=== PATIENT | male | born 1940 | race Caucasian/White ===

== ENCOUNTER 2018-04-29 08:45 | Inpatient (IN) | payer MEDICARE, BC ==
[~2018-04-29] VITALS: Ht 177.8 cm; Wt 82.6 kg
[~2018-04-29 08:45] MED LIST: ALLO100T PO; AMLO5TAB7 PO; ASPI-482 PO; COLC0.6T34 PO; HYDR12.53 PO; HYDR500C16 PO
[2018-04-29 09:32] LABS: BASO # 0.2 x10^3/uL (0.0-0.2); BASO % 2 % (0-3); EOS # 0.2 x10^3/uL (0.0-0.7); EOS % 1 % (0-3); LYMPH # 1.9 x10^3/uL (1.0-4.8); LYMPH % 14 % (24-48); MEAN CORPUSCULAR HEMOGLOBIN 32 pg (25-35); MEAN CORPUSCULAR HGB CONC 35 g/dL (31-37); MEAN CORPUSCULAR VOLUME 91 fL (79-100); MONO # 0.5 x10^3/uL (0.0-1.1); MONO % 4 % (0-9); NEUT % 79 % (31-73); PLATELET COUNT 220 x10^3/uL (140-400); RED BLOOD COUNT 2.52 x10^6/uL (4.30-5.70); RED CELL DISTRIBUTION WIDTH 18.9 % (11.5-14.5); WHITE BLOOD COUNT 13.9 x10^3/uL (4.0-11.0)
[2018-04-29 09:40] LABS: CALCIUM 8.7 mg/dL (8.5-10.1); CREATININE 2.2 mg/dL (0.7-1.3); POTASSIUM 4.3 mmol/L (3.5-5.1)
[2018-04-29 09:53] LABS: C-REACTIVE PROTEIN 40.5 mg/L (0-3.3); DIRECT BILIRUBIN 0.2 mg/dL (0.0-0.2); TOTAL BILIRUBIN 0.7 mg/dL (0.2-1.0); TOTAL PROTEIN 7.7 g/dL (6.4-8.2); URIC ACID 7.7 mg/dL (3.5-7.2)
--- NOTE | 2018-04-29 09:54 | RAD ---
Left foot, 3 views, 04/29/2018: HISTORY: Pain and swelling There is moderate degenerative change at the first MTP joint. There is mild degenerative changes at scattered interphalangeal joints and at the mid foot level. No acute fracture or destructive bony lesion is seen. Moderate diffuse soft tissue swelling is present IMPRESSION: 1. Mild to moderate scattered degenerative changes. 2. Diffuse soft tissue swelling. 3. No acute bony abnormality is detected. Electronically signed by: Henrry Jameson MD (04/29/2018 9:51 AM) [facility]
[2018-04-29] MEDS ORDERED: ACETAMINOPHEN 325 MG TABLET. PO PRN (11:45)
[2018-04-29] MEDS ORDERED: ONDANSETRON PF 4 MG/2 ML VIAL. IV PRN (11:45)
[2018-04-29] MEDS ORDERED: MORPHINE SULFATE 4 MG/ML VIAL. IV PRN (11:45)
--- NOTE | 2018-04-29 11:53 | PHYS DOC ---
Past Medical History Past Medical History: Hypertension Additional Past Medical Histor: leukemia-myleofibrosis, gout Additional Past Surgical Histo: skin cancer removed Alcohol Use: None Drug Use: None Adult General Chief Complaint Chief Complaint: FOOT INJURY PAIN HPI HPI Patient is a 77 year old male who presents with left foot pain/swelling. The patient endorses bilateral swelling and pain and redness of the feet that started about 7 days ago. He states the pain in the right foot improved as well as swelling. The left foot however continued to worsen. He has redness and edema in that extremity. He did not sustain any recent illness. He has not had a fever but has had some chills. 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 He is currently taking some immunomodulating type therapy. The patient also has a known history of gout. He was recently placed on allopurinol for this. Review of Systems Review of Systems Constitutional: Denies fever or chills Eyes: Denies change in visual acuity HENT: Denies nasal congestion Respiratory: Denies cough or shortness of breath Cardiovascular: No additional information not addressed in HPI GI: Denies abdominal pain : Denies dysuria Musculoskeletal: Denies back pain Integument: Denies rash or skin lesions Neurologic: Denies headache Endocrine: Denies polyuria All other systems were reviewed and found to be within normal limits, except as documented in this note. Current Medications Current Medications Current Medications Medications (Trade) Dose Ordered Sig/Duong Start Time Stop Time Status Last Admin Dose Admin Acetaminophen (Tylenol) 650 mg PRN Q4HRS PRN 04/29/18 11:45 04/30/18 11:44 Ceftriaxone Sodium 1 gm/ Dextrose 50 ml @ 100 mls/hr Q24H 04/29/18 11:45 UNV Levofloxacin/ Dextrose 150 ml @ 100 mls/hr ONCE ONCE 04/29/18 11:45 04/29/18 13:14 Morphine Sulfate (Morphine Sulfate) 4 mg PRN Q2HR PRN 04/29/18 11:45 04/30/18 11:44 Ondansetron HCl (Zofran) 4 mg PRN Q8HRS PRN 04/29/18 11:45 04/30/18 11:44 Sodium Chloride 1,000 ml @ 120 mls/hr Q8H20M 04/29/18 11:37 04/30/18 11:36 Vancomycin HCl (Vanco Per Pharmacy) 1 each PRN DAILY PRN 04/29/18 11:45 UNV Vancomycin HCl 2 gm/Sodium Chloride 500 ml @ 250 mls/hr 1X ONCE 04/29/18 12:30 04/29/18 14:29 Allergies Allergies Allergies Coded Allergies Type Severity Reaction Last Updated Verified Penicillins Allergy Intermediate 05/25/16 Yes Physical Exam Physical Exam Constitutional: Well developed, well nourished, no acute distress, non-toxic appearance HENT: Normocephalic, atraumatic, bilateral external ears normal Eyes: PERRLA, EOMI Neck: Normal range of motion Cardiovascular:Heart rate regular rhythm, no murmur Lungs & Thorax: Bilateral breath sounds clear to auscultation Abdomen: Bowel sounds normal, soft, no tenderness Skin: Warm, dry, no erythema Extremities: edema and erythema in the left foot. erythema extends proximally to the mid-foot. Edema to the ankle. 2+ dp pulses. Sensation to light touch intact over all dermatomes. Compartments of the calf are soft and NTTP. Neurologic: Alert and oriented X 3, normal motor function Psychologic: Affect normal Current Patient Data Vital Signs Vital Signs Date Time Temp Pulse Resp B/P (MAP) Pulse Ox O2 Delivery O2 Flow Rate FiO2 04/29/18 11:15 80 18 145/75 (98) 100 Room Air 04/29/18 08:53 98.2 98.2 Lab Values Laboratory Tests Test 04/29/18 09:18 White Blood Count 13.9 x10^3/uL (4.0-11.0) H Red Blood Count 2.52 x10^6/uL (4.30-5.70) L Hemoglobin 8.0 g/dL (13.0-17.5) L Hematocrit 23.0 % (39.0-53.0) L Mean Corpuscular Volume 91 fL (79-100) Mean Corpuscular Hemoglobin 32 pg (25-35) Mean Corpuscular Hemoglobin Concent 35 g/dL (31-37) Red Cell Distribution Width 18.9 % (11.5-14.5) H Platelet Count 220 x10^3/uL (140-400) Neutrophils (%) (Auto) 79 % (31-73) H Lymphocytes (%) (Auto) 14 % (24-48) L Monocytes (%) (Auto) 4 % (0-9) Eosinophils (%) (Auto) 1 % (0-3) Basophils (%) (Auto) 2 % (0-3) Neutrophils # (Auto) 11.0 x10^3uL (1.8-7.7) H Lymphocytes # (Auto) 1.9 x10^3/uL (1.0-4.8) Monocytes # (Auto) 0.5 x10^3/uL (0.0-1.1) Eosinophils # (Auto) 0.2 x10^3/uL (0.0-0.7) Basophils # (Auto) 0.2 x10^3/uL (0.0-0.2) Platelet Estimate Pending Erythrocyte Sedimentation Rate 81 (0-15) H Sodium Level 137 mmol/L (136-145) Potassium Level 4.3 mmol/L (3.5-5.1) Chloride Level 102 mmol/L (98-107) Carbon Dioxide Level 26 mmol/L (21-32) Anion Gap 9 (6-14) Blood Urea Nitrogen 31 mg/dL (8-26) H Creatinine 2.2 mg/dL (0.7-1.3) H Estimated GFR (Cockcroft-Gault) 29.0 Glucose Level 131 mg/dL (70-99) H Lactic Acid Level 1.0 mmol/L (0.4-2.0) Uric Acid 7.7 mg/dL (3.5-7.2) H Calcium Level 8.7 mg/dL (8.5-10.1) Total Bilirubin 0.7 mg/dL (0.2-1.0) Direct Bilirubin 0.2 mg/dL (0.0-0.2) Aspartate Amino Transferase (AST) 23 U/L (15-37) Alanine Aminotransferase (ALT) 21 U/L (16-63) Alkaline Phosphatase 80 U/L (46-116) C-Reactive Protein, Quantitative 40.5 mg/L (0-3.3) H Total Protein 7.7 g/dL (6.4-8.2) Albumin 4.0 g/dL (3.4-5.0) Laboratory Tests 04/29/18 09:18 Laboratory Tests 04/29/18 09:18 EKG EKG [] Radiology/Procedures Radiology/Procedures HISTORY: Pain and swelling There is moderate degenerative change at the first MTP joint. There is mild degenerative changes at scattered interphalangeal joints and at the mid foot level. No acute fracture or destructive bony lesion is seen. Moderate diffuse soft tissue swelling is present IMPRESSION: 1. Mild to moderate scattered degenerative changes. 2. Diffuse soft tissue swelling. 3. No acute bony abnormality is detected. Course & Med Decision Making Course & Med Decision Making Pertinent Labs and Imaging studies reviewed. (See chart for details) Patient was evaluated in the emergency department for possible infection versus gout in the left foot. His history of bilateral involvement with improvement on the right seems more suspicious for gout. The patient was recently started on allopurinol. In the ER, his white blood cell count is mildly elevated. His CRP was over 40. His creatinine was 2.2. The patient does follow with Dr. PATEL for myelofibrosis. He is currently receiving treatment. This makes interpretation of his labs a bit more difficult. His lactate was not elevated. He did not have a fever in the ER. The creatinine of 2.2 is elevated compared to the most recent available although the patient does have chronic kidney disease. The decision is made to admit the patient and assume infection until proven otherwise. He is placed on vancomycin and Levaquin at renal dosing. Patient does have an allergy to penicillin. I discussed this patient with his primary care physician, Dr. Saldaña, who was agreeable to admit. Consults are placed for nephrology as well as for the patient's primary oncologist to consult. Prior to admission all results are reviewed and all of the patient's questions are answered. He is agreeable to the plan of care. Dragon Disclaimer Dragon Disclaimer This electronic medical record was generated, in whole or in part, using a voice recognition dictation system. Departure Departure Referrals: FROY SALDAÑA MD (PCP) CLARK DENNISON DO Apr 29, 2018 11:53
[2018-04-29] MEDS ORDERED: VANCOMYCIN 1.75 GM in IV NORMAL SALINE 500ML BAG 500 ML IV ONE (12:00)
[2018-04-29] MEDS ORDERED: VANCOMYCIN 2 GM in IV NORMAL SALINE 500ML BAG 500 ML IV ONE (12:30)
[2018-04-29] MEDS ORDERED: RUXO10TA PO (12:46)
[2018-04-29 13:00] LABS: % BANDS 23 % (0-9); % LYMPHS 15 % (24-48); % METAS 7 % (0-0); % MONOS 1 % (0-10); % SEGS 54 % (35-66); NUCLEATED RBC 5
[2018-04-29 13:01] LABS: ANISOCYTOSIS SLIGHT; PLT ESTIMATE ADEQUATE (ADEQUATE); POLYCHROMASIA PRESENT
[2018-04-29] MEDS: IV NORMAL SALINE 1000ML BAG 1,000 ML IV SCH ×2 (13:10→19:57)
[2018-04-29 13:11] VITALS: BP 145/73
[2018-04-29 15:00] VITALS: BP 119/81
[2018-04-29] MEDS: VANCOMYCIN PER PHARMACY MC PRN (15:34)
[2018-04-29 19:00] VITALS: BP 131/60
[2018-04-29 23:00] VITALS: BP 124/68
--- NOTE | 2018-04-30 00:57 | CONS ---
DATE OF CONSULTATION: 04/29/2018 REQUESTING PHYSICIAN: Dr. Obi Miramontes. REASON FOR CONSULTATION: Myelofibrosis now admitted with cellulitis. 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 He was treated with hydroxyurea and he tolerated it very well. However, he progressed to myelofibrosis diagnosed by bone marrow biopsy on 02/01/2016. He was started on Jakafi on 04/05/2016. He is currently on 10 mg twice a day. [facility] 04/29/2018 with worsening redness and pain in the left foot. He does have history of gout. He denies any fever. No nose bleeds or gum bleeding. No hematemesis, melena or hematochezia. PAST MEDICAL HISTORY: Includes hypertension, history of gout, skin cancer. FAMILY HISTORY: Positive for colon cancer. SOCIAL HISTORY: No smoking or alcohol abuse. REVIEW OF SYSTEMS: A 12-point review of system was performed. Pertinent positives are mentioned in the history of present illness. Rest of the system review is negative. PHYSICAL EXAMINATION: GENERAL APPEARANCE: The patient is a 77-year-old gentleman who is in no acute cardiorespiratory distress. VITAL SIGNS: Blood pressure 145/73, temperature 98.5. HEENT: Atraumatic, normocephalic. Eyes: No icterus. NECK: Supple. CHEST: Bilaterally symmetrical. HEART: S1, S2 normal. ABDOMEN: Soft, nontender. CENTRAL NERVOUS SYSTEM: No focal deficits. LYMPHATICS: No lymphadenopathy. SKIN: He has erythema in the left foot. MUSCULOSKELETAL: He has evidence of swelling in the left great toe region. LABORATORY DATA: WBC 13.9, hemoglobin 8, and platelet count 220. ESR of 81, bands 23%. Creatinine 2.2. IMPRESSION AND PLAN: 1. Myelofibrosis. He was previously diagnosed with polycythemia vera, JAK2 mutation positive. He was initially treated with hydroxyurea and then upon progression to myelofibrosis diagnosed on 02/01/2016, he was started on Jakafi on 04/05/2016. I have recommended that he continue Jakafi 10 mg b.i.d. He has a good response to treatment. 2. 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 Hemoglobin is relatively stable. I will continue to monitor. 3. Cellulitis of the left lower extremity. I will consult Infectious Diseases. 4. Renal failure. Consult Nephrology. 5. Gout and swelling of the left foot great toe. I will consult Rheumatology. PUMA PATEL MD DR: FROY/barry JOB#: [id number] / [id number]
[2018-04-30] MEDS: IV NORMAL SALINE 1000ML BAG 1,000 ML IV SCH ×2 (01:50→04:17)
[2018-04-30 03:00] VITALS: BP 120/69
[2018-04-30 05:09] LABS: BASO # 0.1 x10^3/uL (0.0-0.2); BASO % 1 % (0-3); EOS # 0.1 x10^3/uL (0.0-0.7); EOS % 1 % (0-3); HEMOGLOBIN 7.2 g/dL (13.0-17.5); LYMPH % 10 % (24-48); MEAN CORPUSCULAR HEMOGLOBIN 33 pg (25-35); MEAN CORPUSCULAR HGB CONC 36 g/dL (31-37); MEAN CORPUSCULAR VOLUME 91 fL (79-100); MONO # 0.4 x10^3/uL (0.0-1.1); MONO % 4 % (0-9); NEUT # 8.1 x10^3uL (1.8-7.7); NEUT % 84 % (31-73); PLATELET COUNT 178 x10^3/uL (140-400); RED BLOOD COUNT 2.23 x10^6/uL (4.30-5.70); RED CELL DISTRIBUTION WIDTH 18.9 % (11.5-14.5); WHITE BLOOD COUNT 9.6 x10^3/uL (4.0-11.0)
[2018-04-30 05:18] LABS: HEMATOCRIT 20.3 % (39.0-53.0)
[2018-04-30 05:52] LABS: ALBUMIN 3.4 g/dL (3.4-5.0); CALCIUM 8.4 mg/dL (8.5-10.1); CREATININE 2.1 mg/dL (0.7-1.3); GFR 30.6; POTASSIUM 4.4 mmol/L (3.5-5.1); TOTAL BILIRUBIN 0.7 mg/dL (0.2-1.0); TOTAL PROTEIN 6.9 g/dL (6.4-8.2)
[2018-04-30 07:20] VITALS: BP 131/72
--- NOTE | 2018-04-30 08:19 | PDOC1 ---
H & P H&P HPI: Mr. Her a 77-year-old male with past medical history of chronic kidney disease stage III, myelofibrosis, splenomegaly, gout, who presented to the ER yesterday for findings of possible cellulitis vs gout of left foot. He notes left foot pain and significant swelling. Per the patient, bilateral swelling, pain and redness of the feet started about 7 days ago and the right foot has subsequently improved, though the left foot has continued to worsen. Patient is currently on Jakafi for treatment of myelofibrosis per Dr. Lal. Of note, he was seen in clinic on 03/31/18 for acute gout of R great toe which was injected and quickly improved. He has been on allopurinol since ~2016 with no recent dose change. ROS: Constitutional: Denies fever, fatigue, chills HEENT: Denies sore throat Cardio: Denies chest pain Pulmonary: Denies shortness of breath, cough, wheezing GI: Denies nausea, vomiting, diarrhea, constipation Skin: Erythema, swelling of Left foot Neuro: Denies weakness, paresthesias ED Course: Labs are significant for white count of 13.9, hemoglobin of 8, creatinine of 2.2, uric acid 7.7, CRP 40.5, pro calcitonin 0.18, ESR 81. Repeat labs in a.m. showed worsening of her normocytic anemia with hemoglobin of 7.2. PMH: As above Family Hx: Brother had colon cancer, sister had cervical cancer. Social Hx: Nonsmoker, nondrinker, no illicit drug use Surg Hx: Myeloma resection on the left face in 2015 Meds: Reviewed and reconciled Allergies: Reviewed PE: Alert, oriented, no acute distress, nontoxic EOMI, sclera non-icteric Neck supple RRR, no murmur CTAB, no wheezes, crackles or rhonchi Soft, NT, ND R foot appears normal, L foot with marked swelling of entire foot, erythema over the 1st MTP and across dorsal foot, mild to moderate tenderness to palpation, no exquisite tenderness with 1st MTP joint movement Normal pulses in b/l LE Calm, cooperative, mood/affect within normal limits Left foot, 3 views, 04/29/2018: HISTORY: Pain and swelling There is moderate degenerative change at the first MTP joint. There is mild degenerative changes at scattered interphalangeal joints and at the mid foot level. No acute fracture or destructive bony lesion is seen. Moderate diffuse soft tissue swelling is present IMPRESSION: 1. Mild to moderate scattered degenerative changes. 2. Diffuse soft tissue swelling. 3. No acute bony abnormality is detected. Assessment/Plan: Left foot redness/swelling likely cellulitis vs gout (seems less likely given exam) Stage III chronic kidney disease with mild JERMAINE Myelofibrosis HTN Chronic normocytic anemia Heme/Onc, ID following Continue abx per ID Repeat labs in AM Dc on PO abx once showing improvement DOMI BALDERAS MD Apr 30, 2018 08:19
--- NOTE | 2018-04-30 08:54 | PDOC ---
Infectious Disease Note Vital Sign Vital Signs Vital Signs Date Time Temp Pulse Resp B/P (MAP) Pulse Ox O2 Delivery O2 Flow Rate FiO2 04/30/18 07:20 98.2 80 20 131/72 (91) 98 Room Air 98.2 Labs Lab Laboratory Tests Test 04/29/18 09:18 04/30/18 04:43 White Blood Count 13.9 x10^3/uL (4.0-11.0) 9.6 x10^3/uL (4.0-11.0) Red Blood Count 2.52 x10^6/uL (4.30-5.70) 2.23 x10^6/uL (4.30-5.70) Hemoglobin 8.0 g/dL (13.0-17.5) 7.2 g/dL (13.0-17.5) Hematocrit 23.0 % (39.0-53.0) 20.3 % (39.0-53.0) Mean Corpuscular Volume 91 fL (79-100) 91 fL (79-100) Mean Corpuscular Hemoglobin 32 pg (25-35) 33 pg (25-35) Mean Corpuscular Hemoglobin Concent 35 g/dL (31-37) 36 g/dL (31-37) Red Cell Distribution Width 18.9 % (11.5-14.5) 18.9 % (11.5-14.5) Platelet Count 220 x10^3/uL (140-400) 178 x10^3/uL (140-400) Neutrophils (%) (Auto) 79 % (31-73) 84 % (31-73) Lymphocytes (%) (Auto) 14 % (24-48) 10 % (24-48) Monocytes (%) (Auto) 4 % (0-9) 4 % (0-9) Eosinophils (%) (Auto) 1 % (0-3) 1 % (0-3) Basophils (%) (Auto) 2 % (0-3) 1 % (0-3) Neutrophils # (Auto) 11.0 x10^3uL (1.8-7.7) 8.1 x10^3uL (1.8-7.7) Lymphocytes # (Auto) 1.9 x10^3/uL (1.0-4.8) 1.0 x10^3/uL (1.0-4.8) Monocytes # (Auto) 0.5 x10^3/uL (0.0-1.1) 0.4 x10^3/uL (0.0-1.1) Eosinophils # (Auto) 0.2 x10^3/uL (0.0-0.7) 0.1 x10^3/uL (0.0-0.7) Basophils # (Auto) 0.2 x10^3/uL (0.0-0.2) 0.1 x10^3/uL (0.0-0.2) Segmented Neutrophils % 54 % (35-66) Band Neutrophils % 23 % (0-9) Lymphocytes % 15 % (24-48) Monocytes % 1 % (0-10) Metamyelocytes % 7 % (0-0) Nucleated Red Blood Cells 5 Platelet Estimate Adequate (ADEQUATE) Polychromasia Present Basophilic Stippling Present Anisocytosis Slight Erythrocyte Sedimentation Rate 81 (0-15) Sodium Level 137 mmol/L (136-145) 137 mmol/L (136-145) Potassium Level 4.3 mmol/L (3.5-5.1) 4.4 mmol/L (3.5-5.1) Chloride Level 102 mmol/L (98-107) 104 mmol/L (98-107) Carbon Dioxide Level 26 mmol/L (21-32) 23 mmol/L (21-32) Anion Gap 9 (6-14) 10 (6-14) Blood Urea Nitrogen 31 mg/dL (8-26) 31 mg/dL (8-26) Creatinine 2.2 mg/dL (0.7-1.3) 2.1 mg/dL (0.7-1.3) Estimated GFR (Cockcroft-Gault) 29.0 30.6 Glucose Level 131 mg/dL (70-99) 107 mg/dL (70-99) Lactic Acid Level 1.0 mmol/L (0.4-2.0) Uric Acid 7.7 mg/dL (3.5-7.2) Calcium Level 8.7 mg/dL (8.5-10.1) 8.4 mg/dL (8.5-10.1) Total Bilirubin 0.7 mg/dL (0.2-1.0) 0.7 mg/dL (0.2-1.0) Direct Bilirubin 0.2 mg/dL (0.0-0.2) Aspartate Amino Transf (AST/SGOT) 23 U/L (15-37) 16 U/L (15-37) Alanine Aminotransferase (ALT/SGPT) 21 U/L (16-63) 17 U/L (16-63) Alkaline Phosphatase 80 U/L (46-116) 70 U/L (46-116) C-Reactive Protein, Quantitative 40.5 mg/L (0-3.3) Total Protein 7.7 g/dL (6.4-8.2) 6.9 g/dL (6.4-8.2) Albumin 4.0 g/dL (3.4-5.0) 3.4 g/dL (3.4-5.0) Procalcitonin 0.18 ng/mL (0.00-0.10) BUN/Creatinine Ratio 15 (6-20) Albumin/Globulin Ratio 1.0 (1.0-1.7) Objective Assessment Left foot swelling - gout vs ID. Probable gout given elevated Uric acid and recent treatment although Xray neg for any changes. Procalcitonin can be elevated in renal failure PCN allergy - rash - not known if he has taken Amox or Keflex in the past Leukocytosis - better JERMAINE Recent gout in right toe and received steroid injection Plan Plan of Care Cont Vanc/Levflox for now Await Rheum f/u - may need joint aspiration for definitive diagnosis F/u labs and cults D/w Dr. Ziegler Thank you # [id number] ITALO ESPANA MD Apr 30, 2018 08:54
[2018-04-30 10:52] VITALS: BP 156/80
[2018-04-30] MEDS ORDERED: ALLOPURINOL 100 MG TABLET. PO SCH (12:30)
[2018-04-30] MEDS: amLODIPine BESYLATE 5 MG TABLET PO SCH (12:37)
[2018-04-30] MEDS: RUXOLITINIB PHOSPHATE 10 MG PO SCH ×2 (12:38→20:18)
[2018-04-30] MEDS: VANCOMYCIN PER PHARMACY MC PRN (14:51)
[2018-04-30] MEDS ORDERED: VANCOMYCIN 1.25 GM in IV NORMAL SALINE 250ML 250 ML IV SCH (15:00)
[2018-04-30 15:07] VITALS: BP 138/73
--- NOTE | 2018-04-30 16:38 | PDOC2 ---
CONSULT Date of Consult Date of Consult DATE: 04/30/18 TIME: 16:27 Reason for Consult Reason for Consult: JERMAINE on CKD Source Source: Caregiver, Chart review, Patient History of Present Illness Reason for Visit: The patient is a 77-year-old male Dx of polycythemia vera on in 2010, He was treated with hydroxyurea and he tolerated it very well. 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 He has been on Jakafi since - twice a day. He is admitted with c/o worsening redness and pain in the left foot. He does have history of gout. He denies any fever. No hematemesis, melena or hematochezia.No N/V/D. Denies Dysuria, hematuria, does hav to urinate every 30 mins to an Hr- chronic as per Pt. Not On meds for prostates as per Pt and Follows with PCP Q year . Pt reports he has been told for many years that he has decreased renal function but he has never seen Renal Denies NSAId use Current Problem List Problem List Problems Medical Problems: (1) Cellulitis of left foot Status: Acute Current Medications Current Medications Current Medications Vancomycin HCl (Vanco Per Pharmacy) 1 each PRN DAILY PRN MC SEE COMMENTS Last administered on 04/30/18at 14:51; Start 04/29/18 at 11:45 Ceftriaxone Sodium 1 gm/ Dextrose 50 ml @ 100 mls/hr Q24H IV ; Start 04/29/18 at 11:45; Status UNV Levofloxacin/ Dextrose 150 ml @ 100 mls/hr QODAY@1130 IV ; Start 05/01/18 at 11: 30 Ondansetron HCl (Zofran) 4 mg PRN Q8HRS PRN IV NAUSEA/VOMITING; Start 04/29/18 at 11:45; Stop 04/30/18 at 11:44; Status DC Morphine Sulfate (Morphine Sulfate) 4 mg PRN Q2HR PRN IV PAIN not relieved by other med; Start 04/29/18 at 11:45; Stop 04/30/18 at 11:44; Status DC Sodium Chloride 1,000 ml @ 120 mls/hr Q8H20M IV Last administered on 04/30/18at 01:50; Start 04/29/18 at 11:37; Stop 04/30/18 at 11:36; Status DC Acetaminophen (Tylenol) 650 mg PRN Q4HRS PRN PO FEVER; Start 04/29/18 at 11:45; Stop 04/30/18 at 11:44; Status DC Levofloxacin/ Dextrose 150 ml @ 100 mls/hr ONCE ONCE IV Last administered on 04/29/18at 13:10; Start 04/29/18 at 11:45; Stop 04/29/18 at 13:14; Status DC Vancomycin HCl 2 gm/Sodium Chloride 500 ml @ 250 mls/hr 1X ONCE IV ; Start 04/29/18 at 12:30; Stop 04/29/18 at 14:29; Status Cancel Vancomycin HCl 1.75 gm/Sodium Chloride 500 ml @ 250 mls/hr 1X ONCE IV Last administered on 04/29/18at 15:10; Start 04/29/18 at 12:00; Stop 04/29/18 at 13:59; Status DC Vancomycin HCl (Vancomycin Trough Level) 1 each 1X ONCE MC ; Start 05/01/18 at 14:30; Stop 05/01/18 at 14:31 Vancomycin HCl 1.25 gm/Sodium Chloride 250 ml @ 167 mls/hr Q24H IV ; Start 04/30 at 15:00 Allopurinol (Zyloprim) 200 mg DAILY PO Last administered on 04/30/18at 12:37; Start 04/30/18 at 12:30; Stop 04/30/18 at 15:47; Status DC Amlodipine Besylate (Norvasc) 5 mg DAILY PO Last administered on 04/30/18at 12:37 ; Start 04/30/18 at 12:30 Non-Formulary Medication (Ruxolitinib Phosphate (Jakafi)) 10 mg BID PO Last administered on 04/30/18at 12:38; Start 04/30/18 at 12:30 Prednisone (Prednisone) 30 mg DAILYWBKFT PO ; Start 05/01/18 at 08:00; Stop 05/05 at 07:59 Active Scripts Active Reported Jakafi (Ruxolitinib Phosphate) 10 Mg Tablet 10 Mg PO BID Allopurinol 100 Mg Tablet 200 Mg PO DAILY Amlodipine Besylate 5 Mg Tablet 5 Mg PO DAILY Hydroxyurea 500 Mg Capsule 500 Mg PO two a week. Allergies Allergies: Coded Allergies: Penicillins (Verified Allergy, Intermediate, 05/25/16) ROS Review of System As per HPI Physical Exam Physical Exam GENERAL APPEARANCE: NAD HEENT-OM moist NECK: Supple. CHEST: Bilaterally symmetrical. HEART: S1, S2 normal. ABDOMEN: Soft, nontender. CENTRAL NERVOUS SYSTEM: No focal deficits. no laureano Ext - Trace to 1+ Edema Bilat LE L > Rt SKIN: erythema left foot. MUSCULOSKELETAL: swelling and Erythema left great toe and Foot region. 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 DW Pt and US 2015 - The right kidney measures 10.1 x 4.5 x 5.5 cm. There is a 1.8 cm cystic structure identified in the right kidney likely a cyst. There is a 6 mm echogenicity identified in the midpole of the right kidney likely an intrarenal collecting system calculus. The left kidney measures 12.4 x 4.7 cm. There is a structure identified in the left kidney measuring 2.5 cm likely cyst. The visualized IVC appears patent. Impression: Bilateral renal cysts 6 mm intrarenal collecting system calculus in the right kidney. s available in our records Labs Labs Laboratory Tests Test 04/29/18 09:18 04/30/18 04:43 White Blood Count 13.9 x10^3/uL (4.0-11.0) 9.6 x10^3/uL (4.0-11.0) Red Blood Count 2.52 x10^6/uL (4.30-5.70) 2.23 x10^6/uL (4.30-5.70) Hemoglobin 8.0 g/dL (13.0-17.5) 7.2 g/dL (13.0-17.5) Hematocrit 23.0 % (39.0-53.0) 20.3 % (39.0-53.0) Mean Corpuscular Volume 91 fL (79-100) 91 fL (79-100) Mean Corpuscular Hemoglobin 32 pg (25-35) 33 pg (25-35) Mean Corpuscular Hemoglobin Concent 35 g/dL (31-37) 36 g/dL (31-37) Red Cell Distribution Width 18.9 % (11.5-14.5) 18.9 % (11.5-14.5) Platelet Count 220 x10^3/uL (140-400) 178 x10^3/uL (140-400) Neutrophils (%) (Auto) 79 % (31-73) 84 % (31-73) Lymphocytes (%) (Auto) 14 % (24-48) 10 % (24-48) Monocytes (%) (Auto) 4 % (0-9) 4 % (0-9) Eosinophils (%) (Auto) 1 % (0-3) 1 % (0-3) Basophils (%) (Auto) 2 % (0-3) 1 % (0-3) Neutrophils # (Auto) 11.0 x10^3uL (1.8-7.7) 8.1 x10^3uL (1.8-7.7) Lymphocytes # (Auto) 1.9 x10^3/uL (1.0-4.8) 1.0 x10^3/uL (1.0-4.8) Monocytes # (Auto) 0.5 x10^3/uL (0.0-1.1) 0.4 x10^3/uL (0.0-1.1) Eosinophils # (Auto) 0.2 x10^3/uL (0.0-0.7) 0.1 x10^3/uL (0.0-0.7) Basophils # (Auto) 0.2 x10^3/uL (0.0-0.2) 0.1 x10^3/uL (0.0-0.2) Segmented Neutrophils % 54 % (35-66) Band Neutrophils % 23 % (0-9) Lymphocytes % 15 % (24-48) Monocytes % 1 % (0-10) Metamyelocytes % 7 % (0-0) Nucleated Red Blood Cells 5 Platelet Estimate Adequate (ADEQUATE) Polychromasia Present Basophilic Stippling Present Anisocytosis Slight Erythrocyte Sedimentation Rate 81 (0-15) Sodium Level 137 mmol/L (136-145) 137 mmol/L (136-145) Potassium Level 4.3 mmol/L (3.5-5.1) 4.4 mmol/L (3.5-5.1) Chloride Level 102 mmol/L (98-107) 104 mmol/L (98-107) Carbon Dioxide Level 26 mmol/L (21-32) 23 mmol/L (21-32) Anion Gap 9 (6-14) 10 (6-14) Blood Urea Nitrogen 31 mg/dL (8-26) 31 mg/dL (8-26) Creatinine 2.2 mg/dL (0.7-1.3) 2.1 mg/dL (0.7-1.3) Estimated GFR (Cockcroft-Gault) 29.0 30.6 Glucose Level 131 mg/dL (70-99) 107 mg/dL (70-99) Lactic Acid Level 1.0 mmol/L (0.4-2.0) Uric Acid 7.7 mg/dL (3.5-7.2) 7.2 mg/dL (3.5-7.2) Calcium Level 8.7 mg/dL (8.5-10.1) 8.4 mg/dL (8.5-10.1) Total Bilirubin 0.7 mg/dL (0.2-1.0) 0.7 mg/dL (0.2-1.0) Direct Bilirubin 0.2 mg/dL (0.0-0.2) Aspartate Amino Transf (AST/SGOT) 23 U/L (15-37) 16 U/L (15-37) Alanine Aminotransferase (ALT/SGPT) 21 U/L (16-63) 17 U/L (16-63) Alkaline Phosphatase 80 U/L (46-116) 70 U/L (46-116) C-Reactive Protein, Quantitative 40.5 mg/L (0-3.3) Total Protein 7.7 g/dL (6.4-8.2) 6.9 g/dL (6.4-8.2) Albumin 4.0 g/dL (3.4-5.0) 3.4 g/dL (3.4-5.0) Procalcitonin 0.18 ng/mL (0.00-0.10) BUN/Creatinine Ratio 15 (6-20) Albumin/Globulin Ratio 1.0 (1.0-1.7) Laboratory Tests Test 04/30/18 04:43 White Blood Count 9.6 x10^3/uL (4.0-11.0) Red Blood Count 2.23 x10^6/uL (4.30-5.70) Hemoglobin 7.2 g/dL (13.0-17.5) Hematocrit 20.3 % (39.0-53.0) Mean Corpuscular Volume 91 fL (79-100) Mean Corpuscular Hemoglobin 33 pg (25-35) Mean Corpuscular Hemoglobin Concent 36 g/dL (31-37) Red Cell Distribution Width 18.9 % (11.5-14.5) Platelet Count 178 x10^3/uL (140-400) Neutrophils (%) (Auto) 84 % (31-73) Lymphocytes (%) (Auto) 10 % (24-48) Monocytes (%) (Auto) 4 % (0-9) Eosinophils (%) (Auto) 1 % (0-3) Basophils (%) (Auto) 1 % (0-3) Neutrophils # (Auto) 8.1 x10^3uL (1.8-7.7) Lymphocytes # (Auto) 1.0 x10^3/uL (1.0-4.8) Monocytes # (Auto) 0.4 x10^3/uL (0.0-1.1) Eosinophils # (Auto) 0.1 x10^3/uL (0.0-0.7) Basophils # (Auto) 0.1 x10^3/uL (0.0-0.2) Sodium Level 137 mmol/L (136-145) Potassium Level 4.4 mmol/L (3.5-5.1) Chloride Level 104 mmol/L (98-107) Carbon Dioxide Level 23 mmol/L (21-32) Anion Gap 10 (6-14) Blood Urea Nitrogen 31 mg/dL (8-26) Creatinine 2.1 mg/dL (0.7-1.3) Estimated GFR (Cockcroft-Gault) 30.6 BUN/Creatinine Ratio 15 (6-20) Glucose Level 107 mg/dL (70-99) Uric Acid 7.2 mg/dL (3.5-7.2) Calcium Level 8.4 mg/dL (8.5-10.1) Total Bilirubin 0.7 mg/dL (0.2-1.0) Aspartate Amino Transf (AST/SGOT) 16 U/L (15-37) Alanine Aminotransferase (ALT/SGPT) 17 U/L (16-63) Alkaline Phosphatase 70 U/L (46-116) Total Protein 6.9 g/dL (6.4-8.2) Albumin 3.4 g/dL (3.4-5.0) Albumin/Globulin Ratio 1.0 (1.0-1.7) Review All relevant outside records, renal labs, imaging studies, telemetry/EKG's were reviewed. JILLIAN MCDONALD MD Apr 30, 2018 16:37
[2018-04-30] MEDS: predniSONE 10 MG TABLET PO SCH (17:58)
[2018-04-30 19:20] VITALS: BP 119/67
--- NOTE | 2018-04-30 20:20 | CONS ---
DATE OF CONSULTATION: 04/30/2018 LOCATION: The patient is in room 667. REQUESTING PHYSICIAN: Dr. Lal. REASON FOR CONSULTATION: Cellulitis. HISTORY OF PRESENT ILLNESS: The patient is a pleasant 77-year-old gentleman with a history of myelofibrosis. Currently, he takes Jakafi 10 mg twice a day. He states about 2-3 weeks ago, in his right great toe, he had an area of swelling and received an injection of steroids for gout and that greatly improved; however, his left foot last week began to have some swelling as well. He denies any trauma or scratches. He has not had any gross fevers or chills, but he has occasional sweats. No headaches, no sinus issues, no sore throat. No cough or chest pain. No nausea, vomiting or diarrhea. Denies any rash. Appetite is fine. No dysuria. PAST MEDICAL HISTORY: Positive for hypertension, gout, and skin cancer as well as a mild fibrosis. REVIEW OF SYSTEMS: Otherwise negative except for as mentioned above. ALLERGIES: LISTED PENICILLIN CAUSED HIVES, UNCERTAIN IF HE HAS EVER HAD AMOXICILLIN OR CEPHALEXIN. SOCIAL HISTORY: No tobacco or alcohol. He has a cat at home, but denies any trauma. FAMILY HISTORY: Positive for colon cancer. CURRENT MEDICATIONS: Includes levofloxacin daily, vancomycin, Zofran, morphine. PHYSICAL EXAMINATION: VITAL SIGNS: He has been afebrile, temperature 98.2, pulse 80, respirations 20, blood pressure 131/72, satting 98% on room air. CONSTITUTIONAL: He is very pleasant and cooperative, in no acute distress. HEENT: He has normal conjunctivae. Oral cavity, pharynx is clear. NECK: Supple, no JVD. LUNGS: Clear to auscultation bilaterally. HEART: S1, S2. ABDOMEN: Soft, nontender, nondistended. EXTREMITIES: Without clubbing or cyanosis. Left foot has what appears to be like a joint effusion about his great toe as well as some 1-2+ edema of the foot in general. There is some erythema with mild tenderness. There is minimal warmth. With straight leg raise on passive range of motion, the erythema almost completely disappears. SKIN: Otherwise, warm to touch without signs of rash. NEUROLOGIC: He is nonfocal. PSYCHIATRIC: Affect is pleasant. LABORATORY DATA: Initial white count was 13.9, today it is 9.6, hemoglobin is 7, platelets are 178, segs are 84. Creatinine of 2.1 down from 2.2. Uric acid was 7.7 on arrival. Normal liver function study test. Procalcitonin was 0.18. Foot x-ray had mild to moderate scattered degenerative changes, diffuse soft tissue swelling, no acute bony abnormality. IMPRESSION: 1. Left foot swelling, gout versus infection. Probable gout given uric acid and recent treatment, although x-ray negative for any changes. Procalcitonin can be elevated in renal failure. 2. PENICILLIN allergy, causes rash, but unknown if he has taken amoxicillin or Keflex in the past. 3. Leukocytosis, better. 4. Acute kidney injury. 5. Recent gout on right toe and received steroid injection. RECOMMENDATIONS: Continue vancomycin and levofloxacin for now. Await Rheumatology evaluation, may need joint aspiration for definitive diagnosis. Follow up labs and cultures as discussed with Dr. Ziegler. Thank you for the opportunity to participate in the patient's care. Should you have any questions, please do not hesitate to contact me. ITALO ESPANA MD DR: TITA/barry JOB#: [id number] / [id number]
[2018-04-30 23:50] VITALS: BP 122/65
--- NOTE | 2018-05-01 03:24 | CONS ---
DATE OF CONSULTATION: 04/30/2018 REQUESTING PHYSICIAN: Dr. Miramontes. REASON FOR CONSULTATION: Foot pain. HISTORY OF PRESENT ILLNESS: The patient is a 77-year-old gentleman, with a diagnosis of polycythemia vera, who was treated with hydroxyurea and also progressed to the myelofibrosis by bone marrow biopsy, was admitted because of the severe pain in the left foot. About 3-4 weeks ago, he started to have the pain in the right foot associated with swelling and redness. He was treated as a gout patient with steroid injection in the right foot, which did help him. At the same time, he was also started on allopurinol. He had developed the gradual onset of the pain with swelling and redness on the left foot and it was getting worse, so he came to the Emergency Room and has been admitted for further evaluation and management. So, Rheumatology consultation has been requested for further evaluation and management. He describes the pain as achy, constant, exacerbates with activity, associated with redness, warmth and swelling in the left foot. PAST MEDICAL HISTORY: Hypertension, gout, skin cancer. FAMILY HISTORY: Negative for any autoimmune disease. SOCIAL HISTORY: Denies tobacco smoking or alcohol abuse. REVIEW OF SYSTEMS: All other systems are reviewed and negative except as noted in the HPI. PHYSICAL EXAMINATION: GENERAL: He is awake, alert, oriented x 3, not in acute distress. VITAL SIGNS: Reveal temperature 98.3, pulse 88, respirations 18 and blood pressure 138/73. SKIN: He does not have any rash. HEENT: Normocephalic, atraumatic head. No oral ulcerations. NECK: Supple. HEART: S1, S2 regular. LUNGS: Clear to auscultation. EXTREMITIES: He has pitting edema on the left lower extremity. MUSCULOSKELETAL: Revealed active synovitis of the left MTP area and the left mid foot area with warmth, redness, tenderness and severe swelling. He does not have any other joint pain or tendinitis. LABORATORY DATA: Revealed creatinine 2.1 with a GFR of 30, uric acid is 7.7, C-reactive protein 40, WBC 9.6, hemoglobin 7.2, sed rate 81. ASSESSMENT: 1. Polyarthralgia. 2. Acute inflammatory arthritis, most likely acute episode of the gout of the left foot. 3. Chronic renal insufficiency, stage 3-4. 4. Elevated sedimentation rate and c-reactive protein. 5. Anemia. His current clinical presentation is quite consistent with acute flareup of the gout, arthritis rather than cellulitis. In my opinion, his allopurinol was started without prophylactic colchicine and that is why, he had got the acute flareup of gout. He already has kidney disease, stage 3 and stage 4, so allopurinol is not a good choice. I will discontinue the allopurinol at present. For immediate improvement, I will start him on prednisone 30 mg daily for a total of 4 doses. Once his acute episode has resolved, then Dr. Miramontes can start him on Uloric for his gout, which would be better hypouricemic agent in presence of kidney failure. You can treat the pain symptomatically. Again, in my opinion, he does not have cellulitis, but it is just the acute episode of gout. I am not requesting any further test at this time. Thank you for allowing me to participate in his care and if you have any questions, please do not hesitate to contact me. APRIL PONCE MD DR: GABRIEL/barry JOB#: [id number] / [id number]
[2018-05-01 03:58] VITALS: BP 125/77
[2018-05-01 04:25] LABS: BASO # 0.1 x10^3/uL (0.0-0.2); BASO % 1 % (0-3); EOS # 0.1 x10^3/uL (0.0-0.7); EOS % 1 % (0-3); HEMATOCRIT 21.7 % (39.0-53.0); HEMOGLOBIN 7.5 g/dL (13.0-17.5); LYMPH # 1.5 x10^3/uL (1.0-4.8); LYMPH % 11 % (24-48); MEAN CORPUSCULAR HEMOGLOBIN 32 pg (25-35); MEAN CORPUSCULAR HGB CONC 35 g/dL (31-37); MEAN CORPUSCULAR VOLUME 91 fL (79-100); MONO # 0.4 x10^3/uL (0.0-1.1); MONO % 3 % (0-9); NEUT # 12.3 x10^3uL (1.8-7.7); NEUT % 85 % (31-73); PLATELET COUNT 197 x10^3/uL (140-400); RED BLOOD COUNT 2.39 x10^6/uL (4.30-5.70); RED CELL DISTRIBUTION WIDTH 19.4 % (11.5-14.5); WHITE BLOOD COUNT 14.4 x10^3/uL (4.0-11.0)
[2018-05-01 04:52] LABS: CALCIUM 8.6 mg/dL (8.5-10.1); GFR 32.4; POTASSIUM 4.8 mmol/L (3.5-5.1)
[2018-05-01 07:37] VITALS: BP 129/71
--- NOTE | 2018-05-01 08:38 | PDOC ---
Infectious Disease Note Subjective Subjective Doing well. Foot better No F/C/S/N/V/D/SOA/rash ROS ROS o/w neg Vital Sign Vital Signs Vital Signs Date Time Temp Pulse Resp B/P (MAP) Pulse Ox O2 Delivery O2 Flow Rate FiO2 05/01/18 07:37 97.3 78 18 129/71 (90) 95 Room Air 97.3 Physical Exam PHYSICAL EXAM CONSTITUTIONAL: He is very pleasant and cooperative, in no acute distress. HEENT: He has normal conjunctivae. Oral cavity, pharynx is clear. NECK: Supple, no JVD. LUNGS: Clear to auscultation bilaterally. HEART: S1, S2. ABDOMEN: Soft, nontender, nondistended. EXTREMITIES: Without clubbing or cyanosis. Left foot has what appears to be like a joint effusion about his great toe. 1-2+ edema of the foot in general has improved. There is some erythema with mild tenderness but better. There is minimal warmth. With straight leg raise on passive range of motion, the erythema almost completely disappears. SKIN: Otherwise, warm to touch without signs of rash. NEUROLOGIC: He is nonfocal. PSYCHIATRIC: Affect is pleasant. Labs Lab Laboratory Tests Test 05/01/18 03:35 White Blood Count 14.4 x10^3/uL (4.0-11.0) Red Blood Count 2.39 x10^6/uL (4.30-5.70) Hemoglobin 7.5 g/dL (13.0-17.5) Hematocrit 21.7 % (39.0-53.0) Mean Corpuscular Volume 91 fL (79-100) Mean Corpuscular Hemoglobin 32 pg (25-35) Mean Corpuscular Hemoglobin Concent 35 g/dL (31-37) Red Cell Distribution Width 19.4 % (11.5-14.5) Platelet Count 197 x10^3/uL (140-400) Neutrophils (%) (Auto) 85 % (31-73) Lymphocytes (%) (Auto) 11 % (24-48) Monocytes (%) (Auto) 3 % (0-9) Eosinophils (%) (Auto) 1 % (0-3) Basophils (%) (Auto) 1 % (0-3) Neutrophils # (Auto) 12.3 x10^3uL (1.8-7.7) Lymphocytes # (Auto) 1.5 x10^3/uL (1.0-4.8) Monocytes # (Auto) 0.4 x10^3/uL (0.0-1.1) Eosinophils # (Auto) 0.1 x10^3/uL (0.0-0.7) Basophils # (Auto) 0.1 x10^3/uL (0.0-0.2) Sodium Level 135 mmol/L (136-145) Potassium Level 4.8 mmol/L (3.5-5.1) Chloride Level 104 mmol/L (98-107) Carbon Dioxide Level 22 mmol/L (21-32) Anion Gap 9 (6-14) Blood Urea Nitrogen 33 mg/dL (8-26) Creatinine 2.0 mg/dL (0.7-1.3) Estimated GFR (Cockcroft-Gault) 32.4 Glucose Level 148 mg/dL (70-99) Calcium Level 8.6 mg/dL (8.5-10.1) Micro Microbiology 04/29/18 Blood Culture - Preliminary, Resulted NO GROWTH AFTER 1 DAY Objective Assessment Left foot swelling - gout -improved PCN allergy - rash - not known if he has taken Amox or Keflex in the past Leukocytosis - better JERMAINE Recent gout in right toe and received steroid injection Plan Plan of Care Discont Vanc/Levflox - d/w Dr. Blankenship 04/30 and will d/c abx D/w ITALO Valencia MD May 01, 2018 08:38
[2018-05-01] MEDS: RUXOLITINIB PHOSPHATE 10 MG PO SCH (09:00)
[2018-05-01] MEDS: predniSONE 10 MG TABLET PO SCH (09:00)
[2018-05-01] MEDS: amLODIPine BESYLATE 5 MG TABLET PO SCH (09:01)
--- NOTE | 2018-05-01 09:13 | PDOC ---
PROGRESS NOTES Subjective Subjective HPI - f/u of Myelofibrosis. ROS - left foot pain better Objective Objective Vital Signs Date Time Temp Pulse Resp B/P (MAP) Pulse Ox O2 Delivery O2 Flow Rate FiO2 05/01/18 09:01 78 129/71 05/01/18 07:37 97.3 18 95 Room Air 97.3 Intake and Output 05/01/18 07:00 Intake Total 1440 ml Balance 1440 ml Intake Oral 1440 ml # Voids 4 Physical Exam Heart: Normal S1, Normal S2 General: Alert, Oriented X3 Lungs: Clear to auscultation Neuro: Normal speech Psych/Mental Status: Mental status NL Assessment Assessment Problems Medical Problems: (1) Cellulitis of left foot Status: Acute IMPRESSION AND PLAN: 1. Myelofibrosis. He was previously diagnosed with polycythemia vera, JAK2 mutation positive. He was initially treated with hydroxyurea and then upon progression to myelofibrosis diagnosed on 02/01/2016, he was started on Jakafi on 04/05/2016. I have recommended that he continue Jakafi 10 mg b.i.d. He has a good response to treatment. 2. 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 Hemoglobin is relatively stable. I will continue to monitor. 3. Gout of the left foot. Appreciate Infectious Diseases and Rheumatology. Findings consistent with gout rather than cellulitis. 4. Renal failure. Consulted Nephrology. Comment Review of Relevant I have reviewed the following items niya (where applicable) has been applied. Labs Laboratory Tests Test 04/29/18 09:18 04/30/18 04:43 05/01/18 03:35 White Blood Count 13.9 x10^3/uL (4.0-11.0) 9.6 x10^3/uL (4.0-11.0) 14.4 x10^3/uL (4.0-11.0) Red Blood Count 2.52 x10^6/uL (4.30-5.70) 2.23 x10^6/uL (4.30-5.70) 2.39 x10^6/uL (4.30-5.70) Hemoglobin 8.0 g/dL (13.0-17.5) 7.2 g/dL (13.0-17.5) 7.5 g/dL (13.0-17.5) Hematocrit 23.0 % (39.0-53.0) 20.3 % (39.0-53.0) 21.7 % (39.0-53.0) Mean Corpuscular Volume 91 fL (79-100) 91 fL (79-100) 91 fL (79-100) Mean Corpuscular Hemoglobin 32 pg (25-35) 33 pg (25-35) 32 pg (25-35) Mean Corpuscular Hemoglobin Concent 35 g/dL (31-37) 36 g/dL (31-37) 35 g/dL (31-37) Red Cell Distribution Width 18.9 % (11.5-14.5) 18.9 % (11.5-14.5) 19.4 % (11.5-14.5) Platelet Count 220 x10^3/uL (140-400) 178 x10^3/uL (140-400) 197 x10^3/uL (140-400) Neutrophils (%) (Auto) 79 % (31-73) 84 % (31-73) 85 % (31-73) Lymphocytes (%) (Auto) 14 % (24-48) 10 % (24-48) 11 % (24-48) Monocytes (%) (Auto) 4 % (0-9) 4 % (0-9) 3 % (0-9) Eosinophils (%) (Auto) 1 % (0-3) 1 % (0-3) 1 % (0-3) Basophils (%) (Auto) 2 % (0-3) 1 % (0-3) 1 % (0-3) Neutrophils # (Auto) 11.0 x10^3uL (1.8-7.7) 8.1 x10^3uL (1.8-7.7) 12.3 x10^3uL (1.8-7.7) Lymphocytes # (Auto) 1.9 x10^3/uL (1.0-4.8) 1.0 x10^3/uL (1.0-4.8) 1.5 x10^3/uL (1.0-4.8) Monocytes # (Auto) 0.5 x10^3/uL (0.0-1.1) 0.4 x10^3/uL (0.0-1.1) 0.4 x10^3/uL (0.0-1.1) Eosinophils # (Auto) 0.2 x10^3/uL (0.0-0.7) 0.1 x10^3/uL (0.0-0.7) 0.1 x10^3/uL (0.0-0.7) Basophils # (Auto) 0.2 x10^3/uL (0.0-0.2) 0.1 x10^3/uL (0.0-0.2) 0.1 x10^3/uL (0.0-0.2) Segmented Neutrophils % 54 % (35-66) Band Neutrophils % 23 % (0-9) Lymphocytes % 15 % (24-48) Monocytes % 1 % (0-10) Metamyelocytes % 7 % (0-0) Nucleated Red Blood Cells 5 Platelet Estimate Adequate (ADEQUATE) Polychromasia Present Basophilic Stippling Present Anisocytosis Slight Erythrocyte Sedimentation Rate 81 (0-15) Sodium Level 137 mmol/L (136-145) 137 mmol/L (136-145) 135 mmol/L (136-145) Potassium Level 4.3 mmol/L (3.5-5.1) 4.4 mmol/L (3.5-5.1) 4.8 mmol/L (3.5-5.1) Chloride Level 102 mmol/L (98-107) 104 mmol/L (98-107) 104 mmol/L (98-107) Carbon Dioxide Level 26 mmol/L (21-32) 23 mmol/L (21-32) 22 mmol/L (21-32) Anion Gap 9 (6-14) 10 (6-14) 9 (6-14) Blood Urea Nitrogen 31 mg/dL (8-26) 31 mg/dL (8-26) 33 mg/dL (8-26) Creatinine 2.2 mg/dL (0.7-1.3) 2.1 mg/dL (0.7-1.3) 2.0 mg/dL (0.7-1.3) Estimated GFR (Cockcroft-Gault) 29.0 30.6 32.4 Glucose Level 131 mg/dL (70-99) 107 mg/dL (70-99) 148 mg/dL (70-99) Lactic Acid Level 1.0 mmol/L (0.4-2.0) Uric Acid 7.7 mg/dL (3.5-7.2) 7.2 mg/dL (3.5-7.2) Calcium Level 8.7 mg/dL (8.5-10.1) 8.4 mg/dL (8.5-10.1) 8.6 mg/dL (8.5-10.1) Total Bilirubin 0.7 mg/dL (0.2-1.0) 0.7 mg/dL (0.2-1.0) Direct Bilirubin 0.2 mg/dL (0.0-0.2) Aspartate Amino Transf (AST/SGOT) 23 U/L (15-37) 16 U/L (15-37) Alanine Aminotransferase (ALT/SGPT) 21 U/L (16-63) 17 U/L (16-63) Alkaline Phosphatase 80 U/L (46-116) 70 U/L (46-116) C-Reactive Protein, Quantitative 40.5 mg/L (0-3.3) Total Protein 7.7 g/dL (6.4-8.2) 6.9 g/dL (6.4-8.2) Albumin 4.0 g/dL (3.4-5.0) 3.4 g/dL (3.4-5.0) Procalcitonin 0.18 ng/mL (0.00-0.10) BUN/Creatinine Ratio 15 (6-20) Albumin/Globulin Ratio 1.0 (1.0-1.7) Laboratory Tests Test 05/01/18 03:35 White Blood Count 14.4 x10^3/uL (4.0-11.0) Red Blood Count 2.39 x10^6/uL (4.30-5.70) Hemoglobin 7.5 g/dL (13.0-17.5) Hematocrit 21.7 % (39.0-53.0) Mean Corpuscular Volume 91 fL (79-100) Mean Corpuscular Hemoglobin 32 pg (25-35) Mean Corpuscular Hemoglobin Concent 35 g/dL (31-37) Red Cell Distribution Width 19.4 % (11.5-14.5) Platelet Count 197 x10^3/uL (140-400) Neutrophils (%) (Auto) 85 % (31-73) Lymphocytes (%) (Auto) 11 % (24-48) Monocytes (%) (Auto) 3 % (0-9) Eosinophils (%) (Auto) 1 % (0-3) Basophils (%) (Auto) 1 % (0-3) Neutrophils # (Auto) 12.3 x10^3uL (1.8-7.7) Lymphocytes # (Auto) 1.5 x10^3/uL (1.0-4.8) Monocytes # (Auto) 0.4 x10^3/uL (0.0-1.1) Eosinophils # (Auto) 0.1 x10^3/uL (0.0-0.7) Basophils # (Auto) 0.1 x10^3/uL (0.0-0.2) Sodium Level 135 mmol/L (136-145) Potassium Level 4.8 mmol/L (3.5-5.1) Chloride Level 104 mmol/L (98-107) Carbon Dioxide Level 22 mmol/L (21-32) Anion Gap 9 (6-14) Blood Urea Nitrogen 33 mg/dL (8-26) Creatinine 2.0 mg/dL (0.7-1.3) Estimated GFR (Cockcroft-Gault) 32.4 Glucose Level 148 mg/dL (70-99) Calcium Level 8.6 mg/dL (8.5-10.1) Microbiology 04/29/18 Blood Culture - Preliminary, Resulted NO GROWTH AFTER 1 DAY Medications Current Medications Vancomycin HCl (Vanco Per Pharmacy) 1 each PRN DAILY PRN MC SEE COMMENTS Last administered on 04/30/18at 14:51; Start 04/29/18 at 11:45 Ceftriaxone Sodium 1 gm/ Dextrose 50 ml @ 100 mls/hr Q24H IV ; Start 04/29/18 at 11:45; Status UNV Levofloxacin/ Dextrose 150 ml @ 100 mls/hr QODAY@1130 IV ; Start 05/01/18 at 11: 30 Ondansetron HCl (Zofran) 4 mg PRN Q8HRS PRN IV NAUSEA/VOMITING; Start 04/29/18 at 11:45; Stop 04/30/18 at 11:44; Status DC Morphine Sulfate (Morphine Sulfate) 4 mg PRN Q2HR PRN IV PAIN not relieved by other med; Start 04/29/18 at 11:45; Stop 04/30/18 at 11:44; Status DC Sodium Chloride 1,000 ml @ 120 mls/hr Q8H20M IV Last administered on 04/30/18at 01:50; Start 04/29/18 at 11:37; Stop 04/30/18 at 11:36; Status DC Acetaminophen (Tylenol) 650 mg PRN Q4HRS PRN PO FEVER; Start 04/29/18 at 11:45; Stop 04/30/18 at 11:44; Status DC Levofloxacin/ Dextrose 150 ml @ 100 mls/hr ONCE ONCE IV Last administered on 04/29/18at 13:10; Start 04/29/18 at 11:45; Stop 04/29/18 at 13:14; Status DC Vancomycin HCl 2 gm/Sodium Chloride 500 ml @ 250 mls/hr 1X ONCE IV ; Start 04/29/18 at 12:30; Stop 04/29/18 at 14:29; Status Cancel Vancomycin HCl 1.75 gm/Sodium Chloride 500 ml @ 250 mls/hr 1X ONCE IV Last administered on 04/29/18at 15:10; Start 04/29/18 at 12:00; Stop 04/29/18 at 13:59; Status DC Vancomycin HCl (Vancomycin Trough Level) 1 each 1X ONCE MC ; Start 05/01/18 at 14:30; Stop 05/01/18 at 14:31 Vancomycin HCl 1.25 gm/Sodium Chloride 250 ml @ 167 mls/hr Q24H IV ; Start 04/30 at 15:00 Allopurinol (Zyloprim) 200 mg DAILY PO Last administered on 04/30/18at 12:37; Start 04/30/18 at 12:30; Stop 04/30/18 at 15:47; Status DC Amlodipine Besylate (Norvasc) 5 mg DAILY PO Last administered on 05/01/18at 09:01 ; Start 04/30/18 at 12:30 Non-Formulary Medication (Ruxolitinib Phosphate (Jakafi)) 10 mg BID PO Last administered on 05/01/18at 09:00; Start 04/30/18 at 12:30 Prednisone (Prednisone) 30 mg DAILYWBKFT PO Last administered on 05/01/18at 09:00 ; Start 04/30/18 at 18:00; Stop 05/05/18 at 17:59 Active Scripts Active Reported Jakafi (Ruxolitinib Phosphate) 10 Mg Tablet 10 Mg PO BID Allopurinol 100 Mg Tablet 200 Mg PO DAILY Amlodipine Besylate 5 Mg Tablet 5 Mg PO DAILY Hydroxyurea 500 Mg Capsule 500 Mg PO two a week. Vitals/I & O Vital Sign - Last 24 Hours 04/30/18 04/30/18 04/30/18 04/30/18 10:52 12:37 15:07 19:20 Temp 97.4 98.3 98.1 97.4 98.3 98.1 Pulse 89 89 88 85 Resp B/P (MAP) 156/80 (105) 156/80 138/73 (94) 119/67 (84) Pulse Ox 93 98 98 O2 Delivery Room Air Room Air Room Air 04/30/18 04/30/18 05/01/18 05/01/18 20:12 23:50 03:58 07:37 Temp 97.8 97.6 97.3 97.8 97.6 97.3 Pulse 79 83 78 Resp B/P (MAP) 122/65 (84) 125/77 (93) 129/71 (90) Pulse Ox 97 96 95 O2 Delivery Room Air Room Air Room Air Room Air 05/01/18 09:01 Pulse 78 B/P (MAP) 129/71 Intake and Output 04/30/18 04/30/18 05/01/18 15:00 23:00 07:00 Intake Total 440 ml 500 ml 500 ml Balance 440 ml 500 ml 500 ml PUMA PATEL MD May 01, 2018 09:12
--- NOTE | 2018-05-01 09:33 | PDOC ---
SUBJECTIVE Subjective Foot feels better, seems more mobile and less tender OBJECTIVE Objective Reviewed. Vital Signs Vital Signs Date Time Temp Pulse Resp B/P (MAP) Pulse Ox O2 Delivery O2 Flow Rate FiO2 05/01/18 09:01 78 129/71 05/01/18 07:37 97.3 78 18 129/71 (90) 95 Room Air 97.3 05/01/18 03:58 97.6 83 18 125/77 (93) 96 Room Air 97.6 04/30/18 23:50 97.8 79 18 122/65 (84) 97 Room Air 97.8 04/30/18 20:12 Room Air 04/30/18 19:20 98.1 85 18 119/67 (84) 98 Room Air 98.1 04/30/18 15:07 98.3 88 18 138/73 (94) 98 Room Air 98.3 04/30/18 12:37 89 156/80 04/30/18 10:52 97.4 89 18 156/80 (105) 93 Room Air 97.4 I & O Intake and Output 05/01/18 07:00 Intake Total 1440 ml Balance 1440 ml Intake Oral 1440 ml # Voids 4 PHYSICAL EXAM Physical Exam Alert, oriented, no acute distress, nontoxic EOMI, sclera non-icteric Neck supple RRR, no murmur CTAB, no wheezes, crackles or rhonchi Soft, NT, ND R foot appears normal, L foot with marked swelling of entire foot, erythema over the 1st MTP and across dorsal foot, mild to moderate tenderness to palpation, no exquisite tenderness with 1st MTP joint movement Normal pulses in b/l LE Calm, cooperative, mood/affect within normal limits ASSESSMENT/PLAN Assessment/Plan Left foot redness/swelling, cellulitis vs gout Stage III chronic kidney disease with mild JERMAINE, improving Myelofibrosis HTN Chronic normocytic anemia Prednisone started by Rheum for suspicion of gout Pt requesting to go home later today, will consider late dc today vs tomorrow to wait for more improvement Either way, pt will f/u on Saturday to ensure continued improvement Will consider uloric as outpt, may be costly COMMENT Lab Laboratory Tests Test 05/01/18 03:35 White Blood Count 14.4 x10^3/uL (4.0-11.0) Red Blood Count 2.39 x10^6/uL (4.30-5.70) Hemoglobin 7.5 g/dL (13.0-17.5) Hematocrit 21.7 % (39.0-53.0) Mean Corpuscular Volume 91 fL (79-100) Mean Corpuscular Hemoglobin 32 pg (25-35) Mean Corpuscular Hemoglobin Concent 35 g/dL (31-37) Red Cell Distribution Width 19.4 % (11.5-14.5) Platelet Count 197 x10^3/uL (140-400) Neutrophils (%) (Auto) 85 % (31-73) Lymphocytes (%) (Auto) 11 % (24-48) Monocytes (%) (Auto) 3 % (0-9) Eosinophils (%) (Auto) 1 % (0-3) Basophils (%) (Auto) 1 % (0-3) Neutrophils # (Auto) 12.3 x10^3uL (1.8-7.7) Lymphocytes # (Auto) 1.5 x10^3/uL (1.0-4.8) Monocytes # (Auto) 0.4 x10^3/uL (0.0-1.1) Eosinophils # (Auto) 0.1 x10^3/uL (0.0-0.7) Basophils # (Auto) 0.1 x10^3/uL (0.0-0.2) Sodium Level 135 mmol/L (136-145) Potassium Level 4.8 mmol/L (3.5-5.1) Chloride Level 104 mmol/L (98-107) Carbon Dioxide Level 22 mmol/L (21-32) Anion Gap 9 (6-14) Blood Urea Nitrogen 33 mg/dL (8-26) Creatinine 2.0 mg/dL (0.7-1.3) Estimated GFR (Cockcroft-Gault) 32.4 Glucose Level 148 mg/dL (70-99) Calcium Level 8.6 mg/dL (8.5-10.1) DOMI BALDERAS MD May 01, 2018 09:33
[2018-05-01 11:44] VITALS: BP 142/81
--- NOTE | 2018-05-01 16:10 | PDOC ---
PROGRESS NOTES Subjective Subjective Feels much better in left foot , still has swelling, redness but able to do wt bearing activity. Objective Objective Vital Signs Date Time Temp Pulse Resp B/P (MAP) Pulse Ox O2 Delivery O2 Flow Rate FiO2 05/01/18 11:44 97.8 82 20 142/81 (101) 96 Room Air 97.8 Intake and Output 05/01/18 07:00 Intake Total 1440 ml Balance 1440 ml Intake Oral 1440 ml # Voids 4 Physical Exam Heart: Regular rate, Normal S1, Normal S2, No murmurs, Gallops General: Alert, Oriented X3, Cooperative, No acute distress MUSCULOSKELETAL: No joint tenderness (synovitis of left mid foot, left 1st MTP ) Psych/Mental Status: Mental status NL, Mood NL Skin: No rashes, No breakdown, No significant lesion Diagnosis DIAGNOSIS 1) Polyarthralgia 2) Acute gout of multiple joints, improving 3) CKD Assessment Assessment Plan Plan of Care Cont. Prednisone as ordered. Start Uloric once acute episode resolves. Comment Review of Relevant I have reviewed the following items niya (where applicable) has been applied. Labs Laboratory Tests Test 04/30/18 04:43 05/01/18 03:35 White Blood Count 9.6 x10^3/uL (4.0-11.0) 14.4 x10^3/uL (4.0-11.0) Red Blood Count 2.23 x10^6/uL (4.30-5.70) 2.39 x10^6/uL (4.30-5.70) Hemoglobin 7.2 g/dL (13.0-17.5) 7.5 g/dL (13.0-17.5) Hematocrit 20.3 % (39.0-53.0) 21.7 % (39.0-53.0) Mean Corpuscular Volume 91 fL (79-100) 91 fL (79-100) Mean Corpuscular Hemoglobin 33 pg (25-35) 32 pg (25-35) Mean Corpuscular Hemoglobin Concent 36 g/dL (31-37) 35 g/dL (31-37) Red Cell Distribution Width 18.9 % (11.5-14.5) 19.4 % (11.5-14.5) Platelet Count 178 x10^3/uL (140-400) 197 x10^3/uL (140-400) Neutrophils (%) (Auto) 84 % (31-73) 85 % (31-73) Lymphocytes (%) (Auto) 10 % (24-48) 11 % (24-48) Monocytes (%) (Auto) 4 % (0-9) 3 % (0-9) Eosinophils (%) (Auto) 1 % (0-3) 1 % (0-3) Basophils (%) (Auto) 1 % (0-3) 1 % (0-3) Neutrophils # (Auto) 8.1 x10^3uL (1.8-7.7) 12.3 x10^3uL (1.8-7.7) Lymphocytes # (Auto) 1.0 x10^3/uL (1.0-4.8) 1.5 x10^3/uL (1.0-4.8) Monocytes # (Auto) 0.4 x10^3/uL (0.0-1.1) 0.4 x10^3/uL (0.0-1.1) Eosinophils # (Auto) 0.1 x10^3/uL (0.0-0.7) 0.1 x10^3/uL (0.0-0.7) Basophils # (Auto) 0.1 x10^3/uL (0.0-0.2) 0.1 x10^3/uL (0.0-0.2) Sodium Level 137 mmol/L (136-145) 135 mmol/L (136-145) Potassium Level 4.4 mmol/L (3.5-5.1) 4.8 mmol/L (3.5-5.1) Chloride Level 104 mmol/L (98-107) 104 mmol/L (98-107) Carbon Dioxide Level 23 mmol/L (21-32) 22 mmol/L (21-32) Anion Gap 10 (6-14) 9 (6-14) Blood Urea Nitrogen 31 mg/dL (8-26) 33 mg/dL (8-26) Creatinine 2.1 mg/dL (0.7-1.3) 2.0 mg/dL (0.7-1.3) Estimated GFR (Cockcroft-Gault) 30.6 32.4 BUN/Creatinine Ratio 15 (6-20) Glucose Level 107 mg/dL (70-99) 148 mg/dL (70-99) Uric Acid 7.2 mg/dL (3.5-7.2) Calcium Level 8.4 mg/dL (8.5-10.1) 8.6 mg/dL (8.5-10.1) Total Bilirubin 0.7 mg/dL (0.2-1.0) Aspartate Amino Transf (AST/SGOT) 16 U/L (15-37) Alanine Aminotransferase (ALT/SGPT) 17 U/L (16-63) Alkaline Phosphatase 70 U/L (46-116) Total Protein 6.9 g/dL (6.4-8.2) Albumin 3.4 g/dL (3.4-5.0) Albumin/Globulin Ratio 1.0 (1.0-1.7) Laboratory Tests Test 05/01/18 03:35 White Blood Count 14.4 x10^3/uL (4.0-11.0) Red Blood Count 2.39 x10^6/uL (4.30-5.70) Hemoglobin 7.5 g/dL (13.0-17.5) Hematocrit 21.7 % (39.0-53.0) Mean Corpuscular Volume 91 fL (79-100) Mean Corpuscular Hemoglobin 32 pg (25-35) Mean Corpuscular Hemoglobin Concent 35 g/dL (31-37) Red Cell Distribution Width 19.4 % (11.5-14.5) Platelet Count 197 x10^3/uL (140-400) Neutrophils (%) (Auto) 85 % (31-73) Lymphocytes (%) (Auto) 11 % (24-48) Monocytes (%) (Auto) 3 % (0-9) Eosinophils (%) (Auto) 1 % (0-3) Basophils (%) (Auto) 1 % (0-3) Neutrophils # (Auto) 12.3 x10^3uL (1.8-7.7) Lymphocytes # (Auto) 1.5 x10^3/uL (1.0-4.8) Monocytes # (Auto) 0.4 x10^3/uL (0.0-1.1) Eosinophils # (Auto) 0.1 x10^3/uL (0.0-0.7) Basophils # (Auto) 0.1 x10^3/uL (0.0-0.2) Sodium Level 135 mmol/L (136-145) Potassium Level 4.8 mmol/L (3.5-5.1) Chloride Level 104 mmol/L (98-107) Carbon Dioxide Level 22 mmol/L (21-32) Anion Gap 9 (6-14) Blood Urea Nitrogen 33 mg/dL (8-26) Creatinine 2.0 mg/dL (0.7-1.3) Estimated GFR (Cockcroft-Gault) 32.4 Glucose Level 148 mg/dL (70-99) Calcium Level 8.6 mg/dL (8.5-10.1) Microbiology 04/29/18 Blood Culture - Preliminary, Resulted NO GROWTH AFTER 2 DAYS Medications Current Medications Vancomycin HCl (Vanco Per Pharmacy) 1 each PRN DAILY PRN MC SEE COMMENTS Last administered on 04/30/18at 14:51; Start 04/29/18 at 11:45; Stop 05/01/18 at 09:28; Status DC Ceftriaxone Sodium 1 gm/ Dextrose 50 ml @ 100 mls/hr Q24H IV ; Start 04/29/18 at 11:45; Status UNV Levofloxacin/ Dextrose 150 ml @ 100 mls/hr QODAY@1130 IV ; Start 05/01/18 at 11: 30; Stop 05/01/18 at 11:30; Status DC Ondansetron HCl (Zofran) 4 mg PRN Q8HRS PRN IV NAUSEA/VOMITING; Start 04/29/18 at 11:45; Stop 04/30/18 at 11:44; Status DC Morphine Sulfate (Morphine Sulfate) 4 mg PRN Q2HR PRN IV PAIN not relieved by other med; Start 04/29/18 at 11:45; Stop 04/30/18 at 11:44; Status DC Sodium Chloride 1,000 ml @ 120 mls/hr Q8H20M IV Last administered on 04/30/18at 01:50; Start 04/29/18 at 11:37; Stop 04/30/18 at 11:36; Status DC Acetaminophen (Tylenol) 650 mg PRN Q4HRS PRN PO FEVER; Start 04/29/18 at 11:45; Stop 04/30/18 at 11:44; Status DC Levofloxacin/ Dextrose 150 ml @ 100 mls/hr ONCE ONCE IV Last administered on 04/29/18at 13:10; Start 04/29/18 at 11:45; Stop 04/29/18 at 13:14; Status DC Vancomycin HCl 2 gm/Sodium Chloride 500 ml @ 250 mls/hr 1X ONCE IV ; Start 04/29/18 at 12:30; Stop 04/29/18 at 14:29; Status Cancel Vancomycin HCl 1.75 gm/Sodium Chloride 500 ml @ 250 mls/hr 1X ONCE IV Last administered on 04/29/18at 15:10; Start 04/29/18 at 12:00; Stop 04/29/18 at 13:59; Status DC Vancomycin HCl (Vancomycin Trough Level) 1 each 1X ONCE MC ; Start 05/01/18 at 14:30; Stop 05/01/18 at 14:30; Status DC Vancomycin HCl 1.25 gm/Sodium Chloride 250 ml @ 167 mls/hr Q24H IV ; Start 04/30 at 15:00; Stop 05/01/18 at 09:28; Status DC Allopurinol (Zyloprim) 200 mg DAILY PO Last administered on 04/30/18at 12:37; Start 04/30/18 at 12:30; Stop 04/30/18 at 15:47; Status DC Amlodipine Besylate (Norvasc) 5 mg DAILY PO Last administered on 05/01/18at 09:01 ; Start 04/30/18 at 12:30 Non-Formulary Medication (Ruxolitinib Phosphate (Jakafi)) 10 mg BID PO Last administered on 05/01/18at 09:00; Start 04/30/18 at 12:30 Prednisone (Prednisone) 30 mg DAILYWBKFT PO Last administered on 05/01/18at 09:00 ; Start 04/30/18 at 18:00; Stop 05/05/18 at 17:59 Active Scripts Active Reported Jakafi (Ruxolitinib Phosphate) 10 Mg Tablet 10 Mg PO BID Amlodipine Besylate 5 Mg Tablet 5 Mg PO DAILY Hydroxyurea 500 Mg Capsule 500 Mg PO two a week. Vitals/I & O Vital Sign - Last 24 Hours 04/30/18 04/30/18 04/30/18 05/01/18 19:20 20:12 23:50 03:58 Temp 98.1 97.8 97.6 98.1 97.8 97.6 Pulse 85 79 83 Resp 18 18 18 B/P (MAP) 119/67 (84) 122/65 (84) 125/77 (93) Pulse Ox 98 97 96 O2 Delivery Room Air Room Air Room Air Room Air 05/01/18 05/01/18 05/01/18 05/01/18 07:37 08:00 09:01 11:44 Temp 97.3 97.8 97.3 97.8 Pulse 78 78 82 Resp 18 20 B/P (MAP) 129/71 (90) 129/71 142/81 (101) Pulse Ox 95 96 O2 Delivery Room Air Room Air Room Air Intake and Output 04/30/18 04/30/18 05/01/18 15:00 23:00 07:00 Intake Total 440 ml 500 ml 500 ml Balance 440 ml 500 ml 500 ml APRIL PONCE MD May 01, 2018 16:10
--- NOTE | 2018-05-01 16:15 | PDOC ---
SUBJECTIVE ROS States feeling Much better, can walk , pain improved OBJECTIVE Vital Signs Vital Signs Date Time Temp Pulse Resp B/P (MAP) Pulse Ox O2 Delivery O2 Flow Rate FiO2 05/01/18 11:44 97.8 82 20 142/81 (101) 96 Room Air 97.8 I & 0 Intake and Output 05/01/18 07:00 Intake Total 1440 ml Balance 1440 ml Intake Oral 1440 ml # Voids 4 PHYSICAL EXAM Physical Exam GENERAL APPEARANCE: NAD HEENT-OM moist NECK: Supple. CHEST: Bilaterally symmetrical. HEART: S1, S2 normal. ABDOMEN: Soft, nontender. CENTRAL NERVOUS SYSTEM: No focal deficits. no laureano Ext - Trace to 1+ Edema Bilat LE L > Rt SKIN: erythema left foot. MUSCULOSKELETAL: swelling and Erythema left great toe and Foot region much improved DIAGNOSIS/ASSESSMENT Assessment & Plan JERMAINE on CKD- Creat Improving slowly Unknown current Baseline In 2013 Cr 1.8 in our records E-Lytes stable, Acid base stable, Gout- Lt Foot On prednisone CKD stage 3- Cr 1.8 in 2013 Please Obtain Records from [facility] [employer] Myelofibrosis Anemia secondary to myelofibrosis and Jakafi. DW Pt , Follow with Renal(Neph associates ) in approx 2 Months DW RN US 2015 - The right kidney measures 10.1 x 4.5 x 5.5 cm. There is a 1.8 cm cystic structure identified in the right kidney likely a cyst. There is a 6 mm echogenicity identified in the midpole of the right kidney likely an intrarenal collecting system calculus. The left kidney measures 12.4 x 4.7 cm. There is a structure identified in the left kidney measuring 2.5 cm likely cyst. The visualized IVC appears patent. Impression: Bilateral renal cysts 6 mm intrarenal collecting system calculus in the right kidney. s available in our records COMMENT/RELEVANT DATA Meds Current Medications Medications (Trade) Dose Ordered Sig/Duong Start Time Stop Time Status Last Admin Dose Admin Acetaminophen (Tylenol) 650 mg PRN Q4HRS PRN 04/29/18 11:45 04/30/18 11:44 DC Allopurinol (Zyloprim) 200 mg DAILY 04/30/18 12:30 04/30/18 15:47 DC 04/30/18 12:37 200 MG Amlodipine Besylate (Norvasc) 5 mg DAILY 04/30/18 12:30 05/01/18 09:01 5 MG Ceftriaxone Sodium 1 gm/ Dextrose 50 ml @ 100 mls/hr Q24H 04/29/18 11:45 UNV Levofloxacin/ Dextrose 150 ml @ 100 mls/hr ONCE ONCE 04/29/18 11:45 04/29/18 13:14 DC 04/29/18 13:10 100 MLS/HR Morphine Sulfate (Morphine Sulfate) 4 mg PRN Q2HR PRN 04/29/18 11:45 04/30/18 11:44 DC Non-Formulary Medication (Ruxolitinib Phosphate (Jakafi)) 10 mg BID 04/30/18 12:30 05/01/18 09:00 10 MG Ondansetron HCl (Zofran) 4 mg PRN Q8HRS PRN 04/29/18 11:45 04/30/18 11:44 DC Prednisone (Prednisone) 30 mg [id number] 04/30/18 18:00 05/05/18 17:59 05/01/18 09:00 30 MG Sodium Chloride 1,000 ml @ 120 mls/hr Q8H20M 04/29/18 11:37 04/30/18 11:36 DC 04/30/18 01:50 120 MLS/HR Vancomycin HCl (Vanco Per Pharmacy) 1 each PRN DAILY PRN 04/29/18 11:45 05/01/18 09:28 DC 04/30/18 14:51 1 EACH Vancomycin HCl (Vancomycin Trough Level) 1 each 1X ONCE 05/01/18 14:30 05/01/18 14:30 DC Vancomycin HCl 1.25 gm/Sodium Chloride 250 ml @ 167 mls/hr Q24H 04/30/18 15:00 05/01/18 09:28 DC Vancomycin HCl 1.75 gm/Sodium Chloride 500 ml @ 250 mls/hr 1X ONCE 04/29/18 12:00 04/29/18 13:59 DC 04/29/18 15:10 250 MLS/HR Vancomycin HCl 2 gm/Sodium Chloride 500 ml @ 250 mls/hr 1X ONCE 04/29/18 12:30 04/29/18 14:29 Cancel Lab Laboratory Tests Test 05/01/18 03:35 White Blood Count 14.4 x10^3/uL (4.0-11.0) Red Blood Count 2.39 x10^6/uL (4.30-5.70) Hemoglobin 7.5 g/dL (13.0-17.5) Hematocrit 21.7 % (39.0-53.0) Mean Corpuscular Volume 91 fL (79-100) Mean Corpuscular Hemoglobin 32 pg (25-35) Mean Corpuscular Hemoglobin Concent 35 g/dL (31-37) Red Cell Distribution Width 19.4 % (11.5-14.5) Platelet Count 197 x10^3/uL (140-400) Neutrophils (%) (Auto) 85 % (31-73) Lymphocytes (%) (Auto) 11 % (24-48) Monocytes (%) (Auto) 3 % (0-9) Eosinophils (%) (Auto) 1 % (0-3) Basophils (%) (Auto) 1 % (0-3) Neutrophils # (Auto) 12.3 x10^3uL (1.8-7.7) Lymphocytes # (Auto) 1.5 x10^3/uL (1.0-4.8) Monocytes # (Auto) 0.4 x10^3/uL (0.0-1.1) Eosinophils # (Auto) 0.1 x10^3/uL (0.0-0.7) Basophils # (Auto) 0.1 x10^3/uL (0.0-0.2) Sodium Level 135 mmol/L (136-145) Potassium Level 4.8 mmol/L (3.5-5.1) Chloride Level 104 mmol/L (98-107) Carbon Dioxide Level 22 mmol/L (21-32) Anion Gap 9 (6-14) Blood Urea Nitrogen 33 mg/dL (8-26) Creatinine 2.0 mg/dL (0.7-1.3) Estimated GFR (Cockcroft-Gault) 32.4 Glucose Level 148 mg/dL (70-99) Calcium Level 8.6 mg/dL (8.5-10.1) Results All relevant outside records, renal labs, imaging studies, telemetry/EKG's were reviewed. JILLIAN MCDONALD MD May 01, 2018 16:14
--- NOTE | 2018-05-04 09:52 | PDOC3 ---
Discharge Summary Date of Admission: Apr 29, 2018 Date of Discharge: May 01, 2018 Admitting Diagnosis comment: L foot erythema, swelling concern for cellulitis vs severe gout FINAL DIAGNOSIS Left foot redness/swelling, likely gout vs cellulitis, improving Stage III chronic kidney disease with mild JERMAINE Myelofibrosis HTN Chronic normocytic anemia Brief Hospital Course Mr. Her is a 77 year-old male with past medical history of chronic kidney disease stage III, myelofibrosis, splenomegaly, gout, who presented to the ER 04/29/18 for findings of possible cellulitis vs gout of left foot. He notes left foot pain and significant swelling. Per the patient, bilateral swelling, pain and redness of the feet started about 7 days ago and the right foot has subsequently improved, though the left foot continued to worsen. Patient is currently on Jakafi for treatment of myelofibrosis per Dr. Lal. He has been on allopurinol since ~2015 with no recent dose change. Infectious disease and rheumatology were consulted. He was given IV antibiotics to cover for cellulitis , though rheumatology was convinced that it was merely a severe case of gout. He was taken off of allopurinol and prednisone 30 mg daily was started. He had mild to moderate improvement of pain and disability on day of discharge. Patient was highly motivated to leave without waiting for further improvement. He agreed to early follow-up on 05/05/18 with strict return precautions for worsening of pain, swelling, erythema, dysfunction. He agreed. He was discharged with prednisone 30 mg daily and no antibiotics. Renal was also consulted for chronic kidney disease with mild acute kidney injury and recommended follow-up in 2 months. Rheumatology also recommended considering the use of Uloric for gout control after acute episode has resolved. BMP will be repeated at follow-up. CONDITION AT DISCHARGE: Improved, Stable Discharge Medications Jakafi (Ruxolitinib Phosphate) 10 Mg Tablet 10 Mg PO BID Amlodipine Besylate 5 Mg Tablet 5 Mg PO DAILY Hydroxyurea 500 Mg Capsule 500 Mg PO two a week. Allergies Allergies Coded Allergies Type Severity Reaction Last Updated Verified Penicillins Allergy Intermediate 05/25/16 Yes Disposition/Orders: D/C to Home DOMI BALDERAS MD May 04, 2018 09:52
== END 2018-05-01 17:01 | disposition home or self-care (01) | DRG 602 ==
LOC: ER 08:45 → 6 SOUTH 10:50
PROVIDERS: ADMIT Family Medicine; ATTEND Family Medicine
DX: L03.116 Cellulitis of left lower limb (principal); N17.0 Acute kidney failure with tubular necrosis; D75.81 Myelofibrosis; N18.4 Chronic kidney disease, stage 4 (severe); D45 Polycythemia vera; N20.0 Calculus of kidney; N28.1 Cyst of kidney, acquired; D64.9 Anemia, unspecified; I12.9 Hypertensive chronic kidney disease with stage 1 through stage 4 chronic kidney disease, or unspecified chronic kidney disease; M06.4 Inflammatory polyarthropathy; M10.9 Gout, unspecified; M19.90 Unspecified osteoarthritis, unspecified site; Z80.0 Family history of malignant neoplasm of digestive organs; Z85.6 Personal history of leukemia; Z85.828 Personal history of other malignant neoplasm of skin; Z88.0 Allergy status to penicillin; Z79.899 Other long term (current) drug therapy; Z88.1 Allergy status to other antibiotic agents
CPT/HCPCS: 36415; 73630; 80048; 80053; 80076; 83605; 84145; 84550; 85007; 85025; 85651; 86140; 87040; J1956; J3370; J7030; J7040; J7512; 99285-25

== ENCOUNTER → 2020-03-14 | Outpatient (CLI) | payer MEDICARE, BC ==
[~2020-03-14] MED LIST changes: +AMLO5TAB10 PO; -AMLO5TAB7 PO; -HYDR12.53 PO; +HYDR12.575 PO; +RUXO10TA PO
[2020-03-14 13:40] LABS: BASO # 0.6 x10^3/uL (0.0-0.2); BASO % 4 % (0-3); EOS # 0.2 x10^3/uL (0.0-0.7); EOS % 2 % (0-3); HEMATOCRIT 26.7 % (39.0-53.0); HEMOGLOBIN 9.4 g/dL (13.0-17.5); LYMPH # 1.5 x10^3/uL (1.0-4.8); LYMPH % 11 % (24-48); MEAN CORPUSCULAR HEMOGLOBIN 31 pg (25-35); MEAN CORPUSCULAR HGB CONC 35 g/dL (31-37); MEAN CORPUSCULAR VOLUME 90 fL (79-100); MONO # 0.4 x10^3/uL (0.0-1.1); MONO % 3 % (0-9); NEUT # 11.6 x10^3/uL (1.8-7.7); NEUT % 81 % (31-73); PLATELET COUNT 223 x10^3/uL (140-400); RED BLOOD COUNT 2.99 x10^6/uL (4.30-5.70); RED CELL DISTRIBUTION WIDTH 19.1 % (11.5-14.5); WHITE BLOOD COUNT 14.4 x10^3/uL (4.0-11.0)
[2020-03-14 13:59] LABS: CALCIUM 8.3 mg/dL (8.5-10.1); GFR 32.2; POTASSIUM 4.6 mmol/L (3.5-5.1)
[2020-03-14 14:05] LABS: ALBUMIN 4.2 g/dL (3.4-5.0); ALBUMIN/GLOBULIN RATIO 1.5 (1.0-1.7); TOTAL BILIRUBIN 0.8 mg/dL (0.2-1.0)
[2020-03-14 18:09] LABS: % BANDS 15 % (0-9); % EOS 2 % (0-5); % LYMPHS 10 % (24-48); % METAS 2 % (0-0); % MYELOS 2 % (0-0); NUCLEATED RBC 6
[2020-03-14 19:18] LABS: % OTHERS 1 % (0-0); % SEGS 68 % (35-66)
[2020-03-14 19:19] LABS: PLT ESTIMATE ADEQUATE (ADEQUATE)
[2020-03-14 19:20] LABS: ANISOCYTOSIS SLIGHT
== END ==
LOC: ONCLAB 13:23
PROVIDERS: ATTEND Internal Medicine Hematology & Oncology
DX: C94.6 Myelodysplastic disease, not elsewhere classified (principal)
CPT/HCPCS: 36415; 80053; 85007; 85025

== ENCOUNTER → 2020-03-25 | Outpatient (CLI) | payer MEDICARE, BC ==
--- NOTE | 2020-03-25 16:22 | RAD ---
EXAM: Abdomen sonogram. HISTORY: Pain. TECHNIQUE: Sonographic imaging of the abdomen was performed. COMPARISON: 05/07/2016. FINDINGS: The liver is enlarged. There is no focal hepatic lesion. There is a 3 mm polyp or nonmobile stone along the posterior gallbladder wall. No bladder wall thickening is seen. The kidneys are normal in size. There are multiple renal cysts, the largest of which measures 4.4 cm on the left. These are simple in appearance. There is a suspected 5 mm nonobstructing right renal stone. There is no hydronephrosis. The pancreas, aorta and inferior vena cava are partially obscured due to bowel gas. The spleen is enlarged, measuring 17.9 cm in maximum dimension. There is a mid abdominal aortic aneurysm measuring 3.2 cm in maximum caliber. IMPRESSION: 1. Hepatosplenomegaly. 2. Multiple simple appearing renal cysts. Follow-up is not routinely recommended for simple cysts. 3. Suspected nonobstructing right renal stone. 4. 3.2 cm mid abdominal aortic aneurysm. This is slightly increased compared to the exam performed 05/07/2016, a component of which may be due to differences in technique. 5. Obscured midline structures due to bowel gas. 6. Tiny nonmobile bile gallstone or gallbladder polyp. Electronically signed by: Fatimah Merchant MD (03/25/2020 4:19 PM) [facility]
== END | disposition home or self-care (01) ==
LOC: US 08:39
PROVIDERS: ATTEND Internal Medicine Hematology & Oncology
DX: C94.6 Myelodysplastic disease, not elsewhere classified (principal); R16.2 Hepatomegaly with splenomegaly, not elsewhere classified; I71.4 Abdominal aortic aneurysm, without rupture; Z79.899 Other long term (current) drug therapy
CPT/HCPCS: 76700

== ENCOUNTER → 2020-04-04 | Outpatient (CLI) | payer MEDICARE, BC ==
[2020-04-04 09:28] LABS: BASO # 0.6 x10^3/uL (0.0-0.2); BASO % 5 % (0-3); EOS # 0.2 x10^3/uL (0.0-0.7); EOS % 1 % (0-3); HEMATOCRIT 25.9 % (39.0-53.0); HEMOGLOBIN 8.6 g/dL (13.0-17.5); LYMPH # 1.5 x10^3/uL (1.0-4.8); LYMPH % 11 % (24-48); MEAN CORPUSCULAR HEMOGLOBIN 30 pg (25-35); MEAN CORPUSCULAR HGB CONC 33 g/dL (31-37); MEAN CORPUSCULAR VOLUME 89 fL (79-100); MONO # 0.5 x10^3/uL (0.0-1.1); MONO % 4 % (0-9); NEUT # 11.1 x10^3/uL (1.8-7.7); NEUT % 80 % (31-73); PLATELET COUNT 215 x10^3/uL (140-400); RED BLOOD COUNT 2.91 x10^6/uL (4.30-5.70); RED CELL DISTRIBUTION WIDTH 18.8 % (11.5-14.5)
[2020-04-04 09:33] LABS: CALCIUM 8.5 mg/dL (8.5-10.1); CREATININE 1.9 mg/dL (0.7-1.3); GFR 34.2; POTASSIUM 4.7 mmol/L (3.5-5.1)
[2020-04-04 09:39] LABS: ALBUMIN/GLOBULIN RATIO 1.2 (1.0-1.7); TOTAL BILIRUBIN 0.7 mg/dL (0.2-1.0); TOTAL PROTEIN 7.3 g/dL (6.4-8.2)
== END | disposition home or self-care (01) ==
LOC: ONCLAB 09:05
PROVIDERS: ATTEND Internal Medicine Hematology & Oncology
DX: C94.6 Myelodysplastic disease, not elsewhere classified (principal); D75.81 Myelofibrosis
CPT/HCPCS: 36415; 80053; 83615; 85025

== ENCOUNTER 2020-05-16 12:09 | Emergency (ER) | payer MEDICARE, BC ==
[~2020-05-16] VITALS: Ht 177.8 cm; Wt 85.0 kg
[2020-05-16] MEDS ORDERED: MORPHINE SULFATE 4 MG/ML VIAL. IV/SQ PRN (13:30)
[2020-05-16] MEDS ORDERED: IV NORMAL SALINE 1000ML BAG 1,000 ML IV ONE (14:00)
[2020-05-16] MEDS ORDERED: CLINDAMYCIN 600MG PREMIX 50 ML IV ONE (14:00)
[2020-05-16 14:04] LABS: BASO # 0.6 x10^3/uL (0.0-0.2); BASO % 3 % (0-3); EOS # 0.4 x10^3/uL (0.0-0.7); EOS % 2 % (0-3); HEMOGLOBIN 9.7 g/dL (13.0-17.5); LYMPH # 2.2 x10^3/uL (1.0-4.8); LYMPH % 11 % (24-48); MEAN CORPUSCULAR HEMOGLOBIN 30 pg (25-35); MEAN CORPUSCULAR HGB CONC 34 g/dL (31-37); MEAN CORPUSCULAR VOLUME 89 fL (79-100); MONO # 0.3 x10^3/uL (0.0-1.1); MONO % 2 % (0-9); NEUT % 83 % (31-73); PLATELET COUNT 300 x10^3/uL (140-400); RED BLOOD COUNT 3.25 x10^6/uL (4.30-5.70); RED CELL DISTRIBUTION WIDTH 19.2 % (11.5-14.5); WHITE BLOOD COUNT 20.5 x10^3/uL (4.0-11.0)
--- NOTE | 2020-05-16 14:18 | RAD ---
Left index finger x-rays 3 views HISTORY: Pain, drainage, redness and swelling, history of trauma. FINDINGS: Localized exuberant soft tissue edema and swelling along the distal second finger, with aggressive permeative lytic bone destruction surrounding the second DIP joint involving the base of the distal phalanx and head of the intermediate phalanx, within the soft tissue swelling there are tiny calcifications present, this aggressive bone destruction and distribution all throughout the joint, rather than juxta articular, and a history of a draining wound, is less typical for gout, and raises concern for septic arthritis with osteomyelitis. No fracture evident. No dislocation. IMPRESSION: Aggressive bone destruction and articular erosions at the second DIP joint involving the base of the distal phalanx and head of the intermediate phalanx with soft tissue swelling and small soft tissue calcification type densities present. With a history of a draining wound these radiographic features are most concerning for septic arthritis and osteomyelitis. While bone destruction and periarticular soft tissue swelling can occur with gout arthritis with the presence of juxta-articular tophi, the aggressive type of bone destruction as well as the history of a draining wound in this case is most concerning for an infection. These findings could be more definitively assessed with MRI which would readily differentiate between an infection versus gout. Electronically signed by: Adalid Carrillo MD (05/16/2020 2:14 PM) [facility]
[2020-05-16 14:26] LABS: CALCIUM 9.3 mg/dL (8.5-10.1); CREATININE 1.9 mg/dL (0.7-1.3); GFR 34.2; POTASSIUM 4.9 mmol/L (3.5-5.1)
[2020-05-16 14:31] LABS: ALBUMIN 4.3 g/dL (3.4-5.0); ALBUMIN/GLOBULIN RATIO 1.2 (1.0-1.7); C-REACTIVE PROTEIN 3.3 mg/L (0-3.3); TOTAL BILIRUBIN 0.8 mg/dL (0.2-1.0); TOTAL PROTEIN 7.8 g/dL (6.4-8.2)
[2020-05-16 14:40] LABS: PROTHROMBIN TIME PATIENT 13.6 SEC (11.7-14.0)
--- NOTE | 2020-05-16 18:25 | PHYS DOC ---
Past Medical History Past Medical History: Cancer, Hypertension Additional Past Medical Histor: leukemia-myleofibrosis, gout Past Surgical History: No Surgical History Additional Past Surgical Histo: skin cancer removed Smoking Status: Never Smoker Alcohol Use: None Drug Use: None General Adult EDM: Chief Complaint: OTHER COMPLAINTS HPI: HPI: Patient is a 79 year old male with history of hypertension, leukemia myelofibrosis, gout who presents the ED today to be evaluated for an infected left index finger. Patient states his left index finger distal end has been swollen for a couple days, he states he was seen by his doctor who initially thought this was a gout flareup and put him on Feboxostat and colerys, he reports the finger did not improve it actually got worse and he was sent to the Ed for further evaluation. Denies any fever. Patient is right-handed. Review of Systems: Review of Systems: Constitutional: Denies fever or chills. [] Eyes: Denies change in visual acuity. [] HENT: Denies nasal congestion or sore throat. [] Respiratory: Denies cough or shortness of breath. [] Cardiovascular: Denies chest pain or edema. [] GI: Denies abdominal pain, nausea, vomiting, bloody stools or diarrhea. [] : Denies dysuria. [] Musculoskeletal: Denies back pain or joint pain. [] Integument: Reports left index finger swelling and redness Neurologic: Denies headache, focal weakness or sensory changes. [] Psychiatric: Denies depression or anxiety. [] Heart Score: Risk Factors: Risk Factors: DM, Current or recent (<one month) smoker, HTN, HLP, family history of CAD, obesity. Risk Scores: Score 0 - 3: 2.5% MACE over next 6 weeks - Discharge Home Score 4 - 6: 20.3% MACE over next 6 weeks - Admit for Clinical Observation Score 7 - 10: 72.7% MACE over next 6 weeks - Early Invasive Strategies Current Medications: Current Medications Medications (Trade) Dose Ordered Sig/Duong Start Time Stop Time Status Last Admin Dose Admin Clindamycin Phosphate 50 ml @ 100 mls/hr 1X ONCE 05/16/20 14:00 05/16/20 14:29 DC Morphine Sulfate (Morphine Sulfate) 4 mg PRN Q15MIN PRN 05/16/20 13:30 05/17/20 13:29 Sodium Chloride 1,000 ml @ 1,000 mls/hr 1X ONCE 05/16/20 14:00 05/16/20 14:59 DC Allergies: Allergies: Allergies Coded Allergies Type Severity Reaction Last Updated Verified Penicillins Allergy Intermediate 05/25/16 Yes Physical Exam: PE: Constitutional: Well developed, well nourished, no acute distress, non-toxic appearance. [] HENT: Normocephalic, atraumatic, bilateral external ears normal, oropharynx moist, no oral exudates, nose normal. [] Eyes: PERRLA, EOMI, conjunctiva normal, no discharge. [] Neck: Normal range of motion, no tenderness, supple, no stridor. [] Cardiovascular:Heart rate regular rhythm, no murmur [] Lungs & Thorax: Bilateral breath sounds clear to auscultation [] Abdomen: Bowel sounds normal, soft, no tenderness, no masses, no pulsatile masses. [] Skin: Distal end of the left index fingers in flexed position with moderate swelling and cellulitis. There is a couple scabbing over the left index finger. There is no drainage. The finger is warm and tender to touch. Back: No tenderness, no CVA tenderness. [] Extremities: No tenderness, no cyanosis, no clubbing, ROM intact, no edema. [] Neurologic: Alert and oriented X 3, normal motor function, normal sensory function, no focal deficits noted. [] Psychologic: Affect normal, judgement normal, mood normal. [] Current Patient Data: Labs: Laboratory Tests Test 05/16/20 13:51 05/16/20 14:13 White Blood Count 20.5 x10^3/uL (4.0-11.0) H Red Blood Count 3.25 x10^6/uL (4.30-5.70) L Hemoglobin 9.7 g/dL (13.0-17.5) L Hematocrit 29.0 % (39.0-53.0) L Mean Corpuscular Volume 89 fL (79-100) Mean Corpuscular Hemoglobin 30 pg (25-35) Mean Corpuscular Hemoglobin Concent 34 g/dL (31-37) Red Cell Distribution Width 19.2 % (11.5-14.5) H Platelet Count 300 x10^3/uL (140-400) Neutrophils (%) (Auto) 83 % (31-73) H Lymphocytes (%) (Auto) 11 % (24-48) L Monocytes (%) (Auto) 2 % (0-9) Eosinophils (%) (Auto) 2 % (0-3) Basophils (%) (Auto) 3 % (0-3) Neutrophils # (Auto) 17.0 x10^3/uL (1.8-7.7) H Lymphocytes # (Auto) 2.2 x10^3/uL (1.0-4.8) Monocytes # (Auto) 0.3 x10^3/uL (0.0-1.1) Eosinophils # (Auto) 0.4 x10^3/uL (0.0-0.7) Basophils # (Auto) 0.6 x10^3/uL (0.0-0.2) H Sodium Level 138 mmol/L (136-145) Potassium Level 4.9 mmol/L (3.5-5.1) Chloride Level 101 mmol/L (98-107) Carbon Dioxide Level 27 mmol/L (21-32) Anion Gap 10 (6-14) Blood Urea Nitrogen 32 mg/dL (8-26) H Creatinine 1.9 mg/dL (0.7-1.3) H Estimated GFR (Cockcroft-Gault) 34.2 BUN/Creatinine Ratio 17 (6-20) Glucose Level 106 mg/dL (70-99) H Lactic Acid Level 0.6 mmol/L (0.4-2.0) Calcium Level 9.3 mg/dL (8.5-10.1) Total Bilirubin 0.8 mg/dL (0.2-1.0) Aspartate Amino Transferase (AST) 21 U/L (15-37) Alanine Aminotransferase (ALT) 28 U/L (16-63) Alkaline Phosphatase 80 U/L (46-116) C-Reactive Protein, Quantitative 3.3 mg/L (0-3.3) Total Protein 7.8 g/dL (6.4-8.2) Albumin 4.3 g/dL (3.4-5.0) Albumin/Globulin Ratio 1.2 (1.0-1.7) Prothrombin Time 13.6 SEC (11.7-14.0) Prothrombin Time INR 1.1 (0.8-1.1) Activated Partial Thromboplast Time 29 SEC (24-38) Laboratory Tests 05/16/20 13:51 Laboratory Tests 05/16/20 13:51 Vital Signs: Vital Signs Date Time Temp Pulse Resp B/P (MAP) Pulse Ox O2 Delivery O2 Flow Rate FiO2 05/16/20 17:56 80 20 159/79 (105) 97 Room Air 05/16/20 13:10 97.3 97.3 EKG: EKG: [] Radiology/Procedures: Radiology/Procedures: []PROCEDURE: FINGER(S) LEFT Left index finger x-rays 3 views HISTORY: Pain, drainage, redness and swelling, history of trauma. FINDINGS: Localized exuberant soft tissue edema and swelling along the distal second finger, with aggressive permeative lytic bone destruction surrounding the second DIP joint involving the base of the distal phalanx and head of the intermediate phalanx, within the soft tissue swelling there are tiny calcifications present, this aggressive bone destruction and distribution all throughout the joint, rather than juxta articular, and a history of a draining wound, is less typical for gout, and raises concern for septic arthritis with osteomyelitis. No fracture evident. No dislocation. IMPRESSION: Aggressive bone destruction and articular erosions at the second DIP joint involving the base of the distal phalanx and head of the intermediate phalanx with soft tissue swelling and small soft tissue calcification type densities present. With a history of a draining wound these radiographic features are most concerning for septic arthritis and osteomyelitis. While bone destruction and periarticular soft tissue swelling can occur with gout arthritis with the presence of juxta-articular tophi, the aggressive type of bone destruction as well as the history of a draining wound in this case is most concerning for an infection. These findings could be more definitively assessed with MRI which would readily differentiate between an infection versus gout. Electronically signed by: Desiree Carrillo MD (05/16/2020 2:14 PM) [facility] DICTATED and SIGNED BY: DESIREE CARRILLO MD DATE: 05/16/20 141 Course & Med Decision Making: Course & Med Decision Making Pertinent Labs and Imaging studies reviewed. (See chart for details) This is a 79-year-old male patient presented to the ED today with left index finger infection. Left index finger x-rays were concerning for osteomyelitis or septic arthritis Vitals on arrival to the ED temperature 97.3, heart rate 78, respiration 20 on room air, blood pressure 128/68, O2 sats 97% on room air. CBC with a WBC of 25.5, hemoglobin 9.7 hematocrit 29.0. Platelets 300. Creatinine 1.9, BUN 32. I spoke to Dr. Blake who requested we transfer patient to the hospital with a hand surgeon. Dr. Almaraz at [facility] accepted patient through the ED. stated she is not able to transport patient to . We offered EMS. They refused. Patient had to sign out AMA, apparently he is going to go home and wait for the son who lives in [place] to come and pick him and take him to [facility]. Both patient and patient were upset stating we should have told him from the beginning that we do not have a hand surgeon and they could have gone to a different hospital. We explained to them the process is we have to evaluate the patient and do all the tests needed and then talk to our orthopedic doctor first before we transfer people out Dragon Disclaimer: Dragon Disclaimer: This electronic medical record was generated, in whole or in part, using a voice recognition dictation system. Departure Departure Impression: Primary Impression: Osteomyelitis of finger of left hand Additional Impression: CRF (chronic renal failure) Qualified Codes: N18.9 - Chronic kidney disease, unspecified Disposition: 05 TRANSFER OTHER Condition: STABLE Referrals: FROY SALDAÑA MD (PCP) Justicifation of Admission Dx: Justifications for Admission: Justification of Admission Dx: N/A JACKY RYDER APRN May 16, 2020 18:25
[2020-05-16 18:54] VITALS: BP 141/83
== END 2020-05-16 18:58 | disposition short-term general hospital (02) ==
LOC: ER 12:09
DX: M86.8X4 Other osteomyelitis, hand (principal); I12.9 Hypertensive chronic kidney disease with stage 1 through stage 4 chronic kidney disease, or unspecified chronic kidney disease; N18.9 Chronic kidney disease, unspecified; M10.9 Gout, unspecified; Z88.0 Allergy status to penicillin
CPT/HCPCS: 36415; 73140; 80053; 83605; 85025; 85610; 85730; 86140; 87040; 96360; 99285; J7030

== ENCOUNTER → 2020-05-16 | Outpatient (CLI) | payer MEDICARE, BC ==
[2020-05-16 09:25] LABS: CALCIUM 8.8 mg/dL (8.5-10.1); GFR 32.2; POTASSIUM 4.8 mmol/L (3.5-5.1)
[2020-05-16 09:27] LABS: ALBUMIN 3.9 g/dL (3.4-5.0); ALBUMIN/GLOBULIN RATIO 1.1 (1.0-1.7); TOTAL BILIRUBIN 0.7 mg/dL (0.2-1.0); TOTAL PROTEIN 7.3 g/dL (6.4-8.2); URIC ACID 6.7 mg/dL (3.5-7.2)
[2020-05-16 09:30] LABS: BASO # 0.8 x10^3/uL (0.0-0.2); BASO % 4 % (0-3); EOS # 0.4 x10^3/uL (0.0-0.7); EOS % 2 % (0-3); HEMATOCRIT 28.5 % (39.0-53.0); HEMOGLOBIN 9.4 g/dL (13.0-17.5); LYMPH % 10 % (24-48); MEAN CORPUSCULAR HEMOGLOBIN 29 pg (25-35); MEAN CORPUSCULAR HGB CONC 33 g/dL (31-37); MEAN CORPUSCULAR VOLUME 88 fL (79-100); MONO # 0.6 x10^3/uL (0.0-1.1); MONO % 3 % (0-9); NEUT # 15.9 x10^3/uL (1.8-7.7); NEUT % 81 % (31-73); PLATELET COUNT 302 x10^3/uL (140-400); RED BLOOD COUNT 3.24 x10^6/uL (4.30-5.70); RED CELL DISTRIBUTION WIDTH 19.5 % (11.5-14.5); WHITE BLOOD COUNT 19.7 x10^3/uL (4.0-11.0)
[2020-05-16 11:39] LABS: % BANDS 23 % (0-9); % BASOS 1 % (0-3); % EOS 2 % (0-5); % LYMPHS 7 % (24-48); % MONOS 5 % (0-10); % MYELOS 2 % (0-0); % SEGS 60 % (35-66); NUCLEATED RBC 1; PLT ESTIMATE ADEQUATE (ADEQUATE)
== END | disposition home or self-care (01) ==
LOC: ONCLAB 09:01
PROVIDERS: ATTEND Internal Medicine Hematology & Oncology
DX: D75.81 Myelofibrosis (principal)
CPT/HCPCS: 36415; 80053; 83615; 84550; 85007; 85025

== ENCOUNTER → 2020-06-07 | Outpatient (CLI) | payer MEDICARE, BC ==
[2020-05-16 18:54] VITALS: BP 141/83
[~2020-06-07] MED LIST changes: +AMLO-186 PO; -AMLO5TAB10 PO
[2020-06-07 10:30] LABS: BASO % 0 % (0-3); EOS # 0.2 x10^3/uL (0.0-0.7); EOS % 1 % (0-3); HEMATOCRIT 28.2 % (39.0-53.0); HEMOGLOBIN 9.4 g/dL (13.0-17.5); LYMPH # 1.7 x10^3/uL (1.0-4.8); LYMPH % 12 % (24-48); MEAN CORPUSCULAR HEMOGLOBIN 30 pg (25-35); MEAN CORPUSCULAR HGB CONC 33 g/dL (31-37); MEAN CORPUSCULAR VOLUME 90 fL (79-100); MONO # 0.5 x10^3/uL (0.0-1.1); MONO % 3 % (0-9); NEUT # 12.4 x10^3/uL (1.8-7.7); NEUT % 84 % (31-73); PLATELET COUNT 247 x10^3/uL (140-400); RED BLOOD COUNT 3.13 x10^6/uL (4.30-5.70); RED CELL DISTRIBUTION WIDTH 20.6 % (11.5-14.5); WHITE BLOOD COUNT 14.9 x10^3/uL (4.0-11.0)
[2020-06-07 10:50] LABS: CALCIUM 8.8 mg/dL (8.5-10.1); CREATININE 2.3 mg/dL (0.7-1.3); GFR 27.4; POTASSIUM 4.4 mmol/L (3.5-5.1)
[2020-06-07 10:57] LABS: ALBUMIN 4.3 g/dL (3.4-5.0); ALBUMIN/GLOBULIN RATIO 1.4 (1.0-1.7); TOTAL BILIRUBIN 0.6 mg/dL (0.2-1.0); TOTAL PROTEIN 7.4 g/dL (6.4-8.2); URIC ACID 5.1 mg/dL (3.5-7.2)
[2020-06-07 12:45] LABS: OVALOCYTES MOD; PLT ESTIMATE ADEQUATE (ADEQUATE); POLYCHROMASIA MOD; TEAR DROP CELLS OCC
[2020-06-07 12:46] LABS: ANISOCYTOSIS MOD
== END ==
LOC: ONCLAB 09:36
PROVIDERS: ATTEND Physician Assistant
DX: D75.81 Myelofibrosis (principal)
CPT/HCPCS: 36415; 80053; 83615; 84550; 85025

== ENCOUNTER → 2020-07-05 | Outpatient (CLI) | payer MEDICARE, BC ==
[2020-07-05 10:09] LABS: BASO % 0 % (0-3); EOS # 0.2 x10^3/uL (0.0-0.7); EOS % 1 % (0-3); HEMATOCRIT 27.1 % (39.0-53.0); LYMPH # 2.4 x10^3/uL (1.0-4.8); LYMPH % 14 % (24-48); MEAN CORPUSCULAR HEMOGLOBIN 30 pg (25-35); MEAN CORPUSCULAR HGB CONC 33 g/dL (31-37); MEAN CORPUSCULAR VOLUME 91 fL (79-100); MONO # 0.6 x10^3/uL (0.0-1.1); MONO % 4 % (0-9); NEUT # 14.1 x10^3/uL (1.8-7.7); NEUT % 81 % (31-73); PLATELET COUNT 227 x10^3/uL (140-400); RED BLOOD COUNT 2.99 x10^6/uL (4.30-5.70); RED CELL DISTRIBUTION WIDTH 20.3 % (11.5-14.5); WHITE BLOOD COUNT 17.4 x10^3/uL (4.0-11.0)
[2020-07-05 10:20] LABS: CALCIUM 8.8 mg/dL (8.5-10.1); CREATININE 1.9 mg/dL (0.7-1.3); GFR 34.2
[2020-07-05 10:26] LABS: ALBUMIN 4.3 g/dL (3.4-5.0); ALBUMIN/GLOBULIN RATIO 1.4 (1.0-1.7); TOTAL BILIRUBIN 0.7 mg/dL (0.2-1.0); TOTAL PROTEIN 7.3 g/dL (6.4-8.2); URIC ACID 5.9 mg/dL (3.5-7.2)
[2020-07-05 11:28] LABS: % BANDS 9 % (0-9); % BASOS 9 % (0-3); % EOS 2 % (0-5); % LYMPHS 9 % (24-48); % MONOS 4 % (0-10); % MYELOS 6 % (0-0); % SEGS 61 % (35-66); NUCLEATED RBC 6
[2020-07-05 11:29] LABS: ANISOCYTOSIS MOD; OVALOCYTES PRESENT; PLT ESTIMATE ADEQUATE (ADEQUATE)
[2020-07-05 11:30] LABS: POIKILOCYTOSIS PRESENT
== END ==
LOC: ONCLAB 09:51
PROVIDERS: ATTEND Physician Assistant
DX: D75.81 Myelofibrosis (principal)
CPT/HCPCS: 36415; 80053; 83615; 84550; 85007; 85025

== ENCOUNTER → 2020-09-06 | Outpatient (CLI) | payer MEDICARE, BC ==
[2020-09-06 10:52] LABS: BASO # 0.2 x10^3/uL (0.0-0.2); BASO % 1 % (0-3); EOS # 0.3 x10^3/uL (0.0-0.7); EOS % 2 % (0-3); HEMATOCRIT 27.6 % (39.0-53.0); LYMPH # 1.8 x10^3/uL (1.0-4.8); LYMPH % 11 % (24-48); MEAN CORPUSCULAR HEMOGLOBIN 30 pg (25-35); MEAN CORPUSCULAR HGB CONC 33 g/dL (31-37); MEAN CORPUSCULAR VOLUME 91 fL (79-100); MONO # 0.5 x10^3/uL (0.0-1.1); MONO % 3 % (0-9); NEUT # 13.9 x10^3/uL (1.8-7.7); NEUT % 83 % (31-73); PLATELET COUNT 216 x10^3/uL (140-400); RED BLOOD COUNT 3.05 x10^6/uL (4.30-5.70); RED CELL DISTRIBUTION WIDTH 19.4 % (11.5-14.5); WHITE BLOOD COUNT 16.7 x10^3/uL (4.0-11.0)
[2020-09-06 11:14] LABS: CREATININE 1.9 mg/dL (0.7-1.3); GFR 34.2; POTASSIUM 4.9 mmol/L (3.5-5.1)
[2020-09-06 11:19] LABS: ALBUMIN 4.2 g/dL (3.4-5.0); ALBUMIN/GLOBULIN RATIO 1.4 (1.0-1.7); TOTAL BILIRUBIN 0.7 mg/dL (0.2-1.0); TOTAL PROTEIN 7.2 g/dL (6.4-8.2); URIC ACID 4.8 mg/dL (3.5-7.2)
[2020-09-06 13:06] LABS: % BANDS 18 % (0-9); % BASOS 3 % (0-3); % EOS 3 % (0-5); % LYMPHS 12 % (24-48); % METAS 12 % (0-0); % MONOS 7 % (0-10); % MYELOS 2 % (0-0); % PROS 1 % (0-0); % SEGS 42 % (35-66); NUCLEATED RBC 6
[2020-09-06 13:07] LABS: ANISOCYTOSIS SLIGHT; PLT ESTIMATE ADEQUATE (ADEQUATE); POLYCHROMASIA SLIGHT
[2020-09-06 13:08] LABS: OVALOCYTES OCC; TEAR DROP CELLS OCC
== END ==
LOC: ONCLAB 10:26
PROVIDERS: ATTEND Physician Assistant
DX: D75.81 Myelofibrosis (principal)
CPT/HCPCS: 36415; 80053; 83615; 84550; 85007; 85025

== ENCOUNTER → 2020-09-22 | Outpatient (CLI) | payer MEDICARE, BC ==
[2020-09-22 10:45] LABS: BASO # 0.3 x10^3/uL (0.0-0.2); BASO % 2 % (0-3); EOS # 0.2 x10^3/uL (0.0-0.7); EOS % 1 % (0-3); HEMATOCRIT 30.2 % (39.0-53.0); HEMOGLOBIN 9.9 g/dL (13.0-17.5); LYMPH # 1.8 x10^3/uL (1.0-4.8); LYMPH % 11 % (24-48); MEAN CORPUSCULAR HEMOGLOBIN 29 pg (25-35); MEAN CORPUSCULAR HGB CONC 33 g/dL (31-37); MEAN CORPUSCULAR VOLUME 88 fL (79-100); MONO # 0.6 x10^3/uL (0.0-1.1); MONO % 3 % (0-9); NEUT # 14.5 x10^3/uL (1.8-7.7); NEUT % 83 % (31-73); PLATELET COUNT 247 x10^3/uL (140-400); RED BLOOD COUNT 3.43 x10^6/uL (4.30-5.70); RED CELL DISTRIBUTION WIDTH 18.8 % (11.5-14.5); WHITE BLOOD COUNT 17.5 x10^3/uL (4.0-11.0)
[2020-09-22 10:48] LABS: CALCIUM 9.4 mg/dL (8.5-10.1); CREATININE 1.8 mg/dL (0.7-1.3); GFR 36.4; POTASSIUM 4.7 mmol/L (3.5-5.1)
[2020-09-22 10:53] LABS: ALBUMIN 4.1 g/dL (3.4-5.0); ALBUMIN/GLOBULIN RATIO 1.2 (1.0-1.7); TOTAL PROTEIN 7.4 g/dL (6.4-8.2)
[2020-09-22 12:25] LABS: % ATYL 1 % (0-0); % BANDS 13 % (0-9); % BASOS 4 % (0-3); % EOS 1 % (0-5); % LYMPHS 7 % (24-48); % METAS 2 % (0-0); % MONOS 3 % (0-10); % MYELOS 9 % (0-0); % SEGS 60 % (35-66); NUCLEATED RBC 4
[2020-09-22 12:26] LABS: ANISOCYTOSIS SLIGHT; PLT ESTIMATE ADEQUATE (ADEQUATE); POIKILOCYTOSIS PRESENT
[2020-09-22 12:27] LABS: OVALOCYTES PRESENT; POLYCHROMASIA PRESENT
== END ==
LOC: ONCLAB 10:15
PROVIDERS: ATTEND Internal Medicine Hematology & Oncology
DX: D75.81 Myelofibrosis (principal)
CPT/HCPCS: 36415; 80053; 83615; 85007; 85025

== ENCOUNTER → 2020-10-20 | Outpatient (CLI) | payer MEDICARE, BC ==
[2020-10-20 11:02] LABS: BASO # 0.6 x10^3/uL (0.0-0.2); BASO % 4 % (0-3); EOS # 0.2 x10^3/uL (0.0-0.7); EOS % 1 % (0-3); HEMATOCRIT 29.5 % (39.0-53.0); LYMPH # 1.3 x10^3/uL (1.0-4.8); LYMPH % 8 % (24-48); MEAN CORPUSCULAR HEMOGLOBIN 29 pg (25-35); MEAN CORPUSCULAR HGB CONC 34 g/dL (31-37); MEAN CORPUSCULAR VOLUME 85 fL (79-100); MONO # 0.5 x10^3/uL (0.0-1.1); MONO % 3 % (0-9); NEUT # 14.8 x10^3/uL (1.8-7.7); NEUT % 85 % (31-73); PLATELET COUNT 242 x10^3/uL (140-400); RED BLOOD COUNT 3.47 x10^6/uL (4.30-5.70); RED CELL DISTRIBUTION WIDTH 18.8 % (11.5-14.5); WHITE BLOOD COUNT 17.5 x10^3/uL (4.0-11.0)
[2020-10-20 11:21] LABS: CALCIUM 8.4 mg/dL (8.5-10.1); CREATININE 1.9 mg/dL (0.7-1.3); GFR 34.2; POTASSIUM 4.8 mmol/L (3.5-5.1)
[2020-10-20 11:27] LABS: ALBUMIN 3.9 g/dL (3.4-5.0); ALBUMIN/GLOBULIN RATIO 1.2 (1.0-1.7); TOTAL BILIRUBIN 0.8 mg/dL (0.2-1.0); TOTAL PROTEIN 7.1 g/dL (6.4-8.2)
[2020-10-20 11:54] LABS: % BANDS 14 % (0-9); % BASOS 4 % (0-3); % EOS 2 % (0-5); % LYMPHS 7 % (24-48); % MYELOS 5 % (0-0); % SEGS 68 % (35-66)
[2020-10-20 11:55] LABS: PLT ESTIMATE ADEQUATE (ADEQUATE)
== END ==
LOC: ONCLAB 10:19
PROVIDERS: ATTEND Internal Medicine Hematology & Oncology
DX: D75.81 Myelofibrosis (principal)
CPT/HCPCS: 36415; 80053; 83615; 85007; 85025

== ENCOUNTER → 2020-11-04 | Outpatient (CLI) | payer MEDICARE, BC ==
[2020-11-04 11:39] LABS: BASO # 0.9 x10^3/uL (0.0-0.2); BASO % 5 % (0-3); EOS # 0.3 x10^3/uL (0.0-0.7); EOS % 2 % (0-3); HEMATOCRIT 31.8 % (39.0-53.0); HEMOGLOBIN 10.6 g/dL (13.0-17.5); LYMPH # 2.3 x10^3/uL (1.0-4.8); LYMPH % 12 % (24-48); MEAN CORPUSCULAR HEMOGLOBIN 28 pg (25-35); MEAN CORPUSCULAR HGB CONC 33 g/dL (31-37); MEAN CORPUSCULAR VOLUME 86 fL (79-100); MONO # 0.5 x10^3/uL (0.0-1.1); MONO % 3 % (0-9); NEUT # 15.3 x10^3/uL (1.8-7.7); NEUT % 79 % (31-73); PLATELET COUNT 224 x10^3/uL (140-400); RED BLOOD COUNT 3.73 x10^6/uL (4.30-5.70); RED CELL DISTRIBUTION WIDTH 19.4 % (11.5-14.5); WHITE BLOOD COUNT 19.3 x10^3/uL (4.0-11.0)
[2020-11-04 11:50] LABS: CALCIUM 8.5 mg/dL (8.5-10.1); GFR 32.2; POTASSIUM 4.9 mmol/L (3.5-5.1)
[2020-11-04 11:54] LABS: ALBUMIN 4.3 g/dL (3.4-5.0); ALBUMIN/GLOBULIN RATIO 1.3 (1.0-1.7); TOTAL BILIRUBIN 0.7 mg/dL (0.2-1.0); TOTAL PROTEIN 7.5 g/dL (6.4-8.2)
[2020-11-04 12:56] LABS: % ATYL 2 % (0-0); % BANDS 27 % (0-9); % BASOS 6 % (0-3); % EOS 1 % (0-5); % LYMPHS 11 % (24-48); % METAS 1 % (0-0); % MYELOS 3 % (0-0); % PROS 1 % (0-0); % SEGS 48 % (35-66); ANISOCYTOSIS SLIGHT; NUCLEATED RBC 4; OVALOCYTES FEW; PLT ESTIMATE ADEQUATE (ADEQUATE); POLYCHROMASIA SLIGHT
== END ==
LOC: ONCLAB 11:01
PROVIDERS: ATTEND Internal Medicine Hematology & Oncology
DX: D75.81 Myelofibrosis (principal)
CPT/HCPCS: 36415; 80053; 83615; 85007; 85025

== ENCOUNTER → 2020-11-18 | Outpatient (CLI) | payer MEDICARE, BC ==
[2020-11-18 11:05] LABS: BASO % 0 % (0-3); EOS # 0.3 x10^3/uL (0.0-0.7); EOS % 1 % (0-3); HEMATOCRIT 29.7 % (39.0-53.0); LYMPH # 2.4 x10^3/uL (1.0-4.8); LYMPH % 13 % (24-48); MEAN CORPUSCULAR HEMOGLOBIN 29 pg (25-35); MEAN CORPUSCULAR HGB CONC 34 g/dL (31-37); MEAN CORPUSCULAR VOLUME 86 fL (79-100); MONO # 0.6 x10^3/uL (0.0-1.1); MONO % 3 % (0-9); NEUT # 15.7 x10^3/uL (1.8-7.7); NEUT % 83 % (31-73); PLATELET COUNT 245 x10^3/uL (140-400); RED BLOOD COUNT 3.47 x10^6/uL (4.30-5.70); RED CELL DISTRIBUTION WIDTH 20.1 % (11.5-14.5)
[2020-11-18 11:27] LABS: CALCIUM 8.4 mg/dL (8.5-10.1); CREATININE 2.3 mg/dL (0.7-1.3); GFR 27.4; POTASSIUM 4.9 mmol/L (3.5-5.1)
[2020-11-18 11:31] LABS: ALBUMIN 4.1 g/dL (3.4-5.0); ALBUMIN/GLOBULIN RATIO 1.3 (1.0-1.7); TOTAL BILIRUBIN 0.8 mg/dL (0.2-1.0); TOTAL PROTEIN 7.3 g/dL (6.4-8.2); URIC ACID 4.9 mg/dL (3.5-7.2)
== END ==
LOC: ONCLAB 10:27
PROVIDERS: ATTEND Internal Medicine Hematology & Oncology
DX: D75.81 Myelofibrosis (principal)
CPT/HCPCS: 36415; 80053; 83615; 84550; 85025

== ENCOUNTER → 2020-12-19 | Outpatient (CLI) | payer MEDICARE, BC ==
[2020-12-19 11:20] LABS: CALCIUM 8.5 mg/dL (8.5-10.1); CREATININE 2.2 mg/dL (0.7-1.3); GFR 28.8; POTASSIUM 5.1 mmol/L (3.5-5.1)
[2020-12-19 11:28] LABS: ALBUMIN 4.3 g/dL (3.4-5.0); ALBUMIN/GLOBULIN RATIO 1.6 (1.0-1.7); TOTAL BILIRUBIN 0.9 mg/dL (0.2-1.0)
[2020-12-19 11:43] LABS: BASO # 0.5 x10^3/uL (0.0-0.2); BASO % 3 % (0-3); EOS # 0.3 x10^3/uL (0.0-0.7); EOS % 2 % (0-3); HEMATOCRIT 26.3 % (39.0-53.0); LYMPH % 12 % (24-48); MEAN CORPUSCULAR HEMOGLOBIN 30 pg (25-35); MEAN CORPUSCULAR HGB CONC 34 g/dL (31-37); MEAN CORPUSCULAR VOLUME 87 fL (79-100); MONO # 0.6 x10^3/uL (0.0-1.1); MONO % 4 % (0-9); NEUT # 13.5 x10^3/uL (1.8-7.7); NEUT % 80 % (31-73); PLATELET COUNT 206 x10^3/uL (140-400); RED BLOOD COUNT 3.04 x10^6/uL (4.30-5.70); WHITE BLOOD COUNT 16.9 x10^3/uL (4.0-11.0)
[2020-12-19 13:10] LABS: % BANDS 11 % (0-9); % EOS 2 % (0-5); % LYMPHS 15 % (24-48); % METAS 1 % (0-0); % MONOS 6 % (0-10); % MYELOS 4 % (0-0); % SEGS 61 % (35-66)
[2020-12-19 13:11] LABS: ANISOCYTOSIS MOD; PLT ESTIMATE ADEQUATE (ADEQUATE)
== END ==
LOC: ONCLAB 10:56
PROVIDERS: ATTEND Physician Assistant
DX: D75.81 Myelofibrosis (principal)
CPT/HCPCS: 36415; 80053; 83615; 84550; 85007; 85025

== ENCOUNTER → 2020-12-29 | Outpatient (CLI) | payer MEDICARE, BC ==
--- NOTE | 2020-12-29 17:31 | KCIC ---
Chest, PA and Lateral: Technique: PA and lateral views of the chest were obtained. History: Orthopnea. Comparison: 11/02/2015. Findings: Mild cardiomegaly. Small bilateral pleural effusions. Mild prominent bilateral interstitial lung niya ings likely congestive changes. Mild degenerative changes thoracic spine. IMPRESSION: 1. Mild congestive changes and small bilateral pleural effusions. Electronically signed by: Fernie Escobedo MD (12/29/2020 5:29 PM) [id number]
== END ==
LOC: KCIC 12:59
PROVIDERS: ATTEND Family Medicine
DX: J90 Pleural effusion, not elsewhere classified (principal); R06.01 Orthopnea
CPT/HCPCS: 71046

== ENCOUNTER → 2021-02-02 | Outpatient (CLI) | payer MEDICARE, BC ==
[2021-02-02 11:02] LABS: BASO # 0.4 x10^3/uL (0.0-0.2); BASO % 3 % (0-3); EOS # 0.2 x10^3/uL (0.0-0.7); EOS % 2 % (0-3); HEMATOCRIT 24.1 % (39.0-53.0); HEMOGLOBIN 8.4 g/dL (13.0-17.5); LYMPH # 1.7 x10^3/uL (1.0-4.8); LYMPH % 12 % (24-48); MEAN CORPUSCULAR HEMOGLOBIN 32 pg (25-35); MEAN CORPUSCULAR HGB CONC 35 g/dL (31-37); MEAN CORPUSCULAR VOLUME 92 fL (79-100); MONO # 0.6 x10^3/uL (0.0-1.1); MONO % 4 % (0-9); NEUT # 11.7 x10^3/uL (1.8-7.7); NEUT % 80 % (31-73); PLATELET COUNT 321 x10^3/uL (140-400); RED BLOOD COUNT 2.63 x10^6/uL (4.30-5.70); RED CELL DISTRIBUTION WIDTH 20.7 % (11.5-14.5); WHITE BLOOD COUNT 14.7 x10^3/uL (4.0-11.0)
[2021-02-02 11:10] LABS: CALCIUM 8.7 mg/dL (8.5-10.1); CREATININE 2.7 mg/dL (0.7-1.3); GFR 22.7
[2021-02-02 11:17] LABS: ALBUMIN 4.5 g/dL (3.4-5.0); ALBUMIN/GLOBULIN RATIO 1.7 (1.0-1.7); TOTAL PROTEIN 7.1 g/dL (6.4-8.2)
[2021-02-02 11:18] LABS: POTASSIUM 5.4 mmol/L (3.5-5.1)
[2021-02-02 14:04] LABS: % BANDS 25 % (0-9); % BASOS 1 % (0-3); % LYMPHS 10 % (24-48); % METAS 4 % (0-0); % MONOS 2 % (0-10); % MYELOS 7 % (0-0); % SEGS 51 % (35-66); NUCLEATED RBC 6
[2021-02-02 14:05] LABS: ANISOCYTOSIS MOD; OVALOCYTES FEW; PLT ESTIMATE ADEQUATE (ADEQUATE); POLYCHROMASIA SLIGHT
== END ==
LOC: ONCLAB 10:45
PROVIDERS: ATTEND Internal Medicine Hematology & Oncology
DX: D75.81 Myelofibrosis (principal)
CPT/HCPCS: 36415; 80053; 85007; 85025

== ENCOUNTER → 2021-02-16 | Outpatient (CLI) | payer MEDICARE, BC ==
[2021-02-16 11:39] LABS: BASO # 0.5 x10^3/uL (0.0-0.2); BASO % 3 % (0-3); EOS # 0.2 x10^3/uL (0.0-0.7); EOS % 1 % (0-3); HEMATOCRIT 24.2 % (39.0-53.0); HEMOGLOBIN 7.9 g/dL (13.0-17.5); LYMPH # 1.9 x10^3/uL (1.0-4.8); LYMPH % 11 % (24-48); MEAN CORPUSCULAR HEMOGLOBIN 31 pg (25-35); MEAN CORPUSCULAR HGB CONC 33 g/dL (31-37); MEAN CORPUSCULAR VOLUME 95 fL (79-100); MONO # 0.5 x10^3/uL (0.0-1.1); MONO % 3 % (0-9); NEUT # 13.2 x10^3/uL (1.8-7.7); NEUT % 81 % (31-73); PLATELET COUNT 299 x10^3/uL (140-400); RED BLOOD COUNT 2.54 x10^6/uL (4.30-5.70); RED CELL DISTRIBUTION WIDTH 20.2 % (11.5-14.5); WHITE BLOOD COUNT 16.4 x10^3/uL (4.0-11.0)
[2021-02-16 11:46] LABS: CALCIUM 8.4 mg/dL (8.5-10.1); CREATININE 2.4 mg/dL (0.7-1.3); POTASSIUM 5.2 mmol/L (3.5-5.1)
[2021-02-16 11:53] LABS: ALBUMIN 4.3 g/dL (3.4-5.0); ALBUMIN/GLOBULIN RATIO 1.7 (1.0-1.7); TOTAL PROTEIN 6.9 g/dL (6.4-8.2); URIC ACID 11.5 mg/dL (3.5-7.2)
[2021-02-16 13:30] LABS: % BANDS 22 % (0-9); % EOS 2 % (0-5); % LYMPHS 9 % (24-48); % METAS 2 % (0-0); % MYELOS 15 % (0-0); % SEGS 50 % (35-66); ANISOCYTOSIS MOD; NUCLEATED RBC 3; PLT ESTIMATE ADEQUATE (ADEQUATE)
[2021-02-16 13:31] LABS: POLYCHROMASIA PRESENT
== END ==
LOC: ONCLAB 10:35
PROVIDERS: ATTEND Internal Medicine Hematology & Oncology
DX: D75.81 Myelofibrosis (principal)
CPT/HCPCS: 36415; 80053; 83615; 84550; 85007; 85025

== ENCOUNTER → 2021-03-02 | Outpatient (CLI) | payer MEDICARE, BC ==
[2021-03-02 12:03] LABS: BASO % 0 % (0-3); EOS # 0.2 x10^3/uL (0.0-0.7); EOS % 1 % (0-3); HEMATOCRIT 24.4 % (39.0-53.0); HEMOGLOBIN 8.1 g/dL (13.0-17.5); LYMPH # 1.6 x10^3/uL (1.0-4.8); LYMPH % 12 % (24-48); MEAN CORPUSCULAR HEMOGLOBIN 32 pg (25-35); MEAN CORPUSCULAR HGB CONC 33 g/dL (31-37); MEAN CORPUSCULAR VOLUME 96 fL (79-100); MONO # 0.4 x10^3/uL (0.0-1.1); MONO % 3 % (0-9); NEUT # 11.2 x10^3/uL (1.8-7.7); NEUT % 84 % (31-73); PLATELET COUNT 237 x10^3/uL (140-400); RED BLOOD COUNT 2.54 x10^6/uL (4.30-5.70); RED CELL DISTRIBUTION WIDTH 20.5 % (11.5-14.5); WHITE BLOOD COUNT 13.3 x10^3/uL (4.0-11.0)
[2021-03-02 12:22] LABS: CALCIUM 8.7 mg/dL (8.5-10.1); CREATININE 2.6 mg/dL (0.7-1.3); GFR 23.7; POTASSIUM 5.6 mmol/L (3.5-5.1)
[2021-03-02 12:29] LABS: ALBUMIN 4.6 g/dL (3.4-5.0); ALBUMIN/GLOBULIN RATIO 1.8 (1.0-1.7); TOTAL BILIRUBIN 0.8 mg/dL (0.2-1.0); TOTAL PROTEIN 7.2 g/dL (6.4-8.2); URIC ACID 11.3 mg/dL (3.5-7.2)
[2021-03-02 13:08] LABS: % ATYL 1 % (0-0); % BANDS 14 % (0-9); % EOS 1 % (0-5); % LYMPHS 12 % (24-48); % METAS 3 % (0-0); % MONOS 3 % (0-10); % MYELOS 12 % (0-0); % SEGS 54 % (35-66); NUCLEATED RBC 8
[2021-03-02 13:09] LABS: ANISOCYTOSIS MOD; PLT ESTIMATE ADEQUATE (ADEQUATE); POLYCHROMASIA PRESENT
== END ==
LOC: ONCLAB 11:47
PROVIDERS: ATTEND Internal Medicine Hematology & Oncology
DX: D75.81 Myelofibrosis (principal)
CPT/HCPCS: 36415; 80053; 83615; 84550; 85007; 85025

== ENCOUNTER → 2021-03-20 | Outpatient (CLI) | payer MEDICARE, BC ==
[2021-03-20 11:18] LABS: BASO # 0.3 x10^3/uL (0.0-0.2); BASO % 1 % (0-3); EOS # 0.2 x10^3/uL (0.0-0.7); EOS % 1 % (0-3); HEMATOCRIT 22.8 % (39.0-53.0); HEMOGLOBIN 7.5 g/dL (13.0-17.5); LYMPH # 2.1 x10^3/uL (1.0-4.8); LYMPH % 12 % (24-48); MEAN CORPUSCULAR HEMOGLOBIN 32 pg (25-35); MEAN CORPUSCULAR HGB CONC 33 g/dL (31-37); MEAN CORPUSCULAR VOLUME 97 fL (79-100); MONO # 0.4 x10^3/uL (0.0-1.1); MONO % 3 % (0-9); NEUT # 14.9 x10^3/uL (1.8-7.7); NEUT % 83 % (31-73); PLATELET COUNT 296 x10^3/uL (140-400); RED BLOOD COUNT 2.36 x10^6/uL (4.30-5.70); RED CELL DISTRIBUTION WIDTH 19.5 % (11.5-14.5); WHITE BLOOD COUNT 17.9 x10^3/uL (4.0-11.0)
[2021-03-20 11:27] LABS: CALCIUM 8.7 mg/dL (8.5-10.1); CREATININE 2.8 mg/dL (0.7-1.3); GFR 21.8; POTASSIUM 4.8 mmol/L (3.5-5.1)
[2021-03-20 11:33] LABS: ALBUMIN 4.2 g/dL (3.4-5.0); ALBUMIN/GLOBULIN RATIO 1.4 (1.0-1.7); TOTAL BILIRUBIN 0.9 mg/dL (0.2-1.0); TOTAL PROTEIN 7.1 g/dL (6.4-8.2); URIC ACID 14.9 mg/dL (3.5-7.2)
[2021-03-20 12:25] LABS: % BANDS 17 % (0-9); % BASOS 6 % (0-3); % EOS 5 % (0-5); % LYMPHS 12 % (24-48); % METAS 7 % (0-0); % MONOS 2 % (0-10); % MYELOS 6 % (0-0); % SEGS 45 % (35-66); NUCLEATED RBC 3
[2021-03-20 12:26] LABS: ANISOCYTOSIS SLIGHT; PLT ESTIMATE ADEQUATE (ADEQUATE)
== END ==
LOC: ONCLAB 09:42
PROVIDERS: ATTEND Physician Assistant
DX: D75.81 Myelofibrosis (principal)
CPT/HCPCS: 36415; 80053; 83615; 84550; 85007; 85025

== ENCOUNTER → 2021-03-21 | Outpatient (CLI) | payer MEDICARE, BC ==
[~2021-03-21] VITALS: Ht 167.6 cm; Wt 74.8 kg
[2021-03-21 09:36] VITALS: BP 101/55
[2021-03-21 10:05] VITALS: BP 113/68
[2021-03-21 11:05] VITALS: BP 96/54
[2021-03-21 11:47] VITALS: BP 93/46
== END | disposition home or self-care (01) ==
LOC: OPS 08:47
PROVIDERS: ATTEND Physician Assistant
DX: D46.9 Myelodysplastic syndrome, unspecified (principal); D75.81 Myelofibrosis; I12.9 Hypertensive chronic kidney disease with stage 1 through stage 4 chronic kidney disease, or unspecified chronic kidney disease; N18.9 Chronic kidney disease, unspecified; Z79.899 Other long term (current) drug therapy
CPT/HCPCS: 36415; 36430; 86850; 86900; 86901; 86920; P9016

== ENCOUNTER → 2021-03-30 | Outpatient (CLI) | payer MEDICARE, BC ==
[2021-03-21 11:47] VITALS: BP 93/46
[2021-03-30 11:27] LABS: BASO # 0.4 x10^3/uL (0.0-0.2); BASO % 3 % (0-3); EOS # 0.2 x10^3/uL (0.0-0.7); EOS % 1 % (0-3); HEMATOCRIT 27.5 % (39.0-53.0); HEMOGLOBIN 9.1 g/dL (13.0-17.5); LYMPH # 1.3 x10^3/uL (1.0-4.8); LYMPH % 9 % (24-48); MEAN CORPUSCULAR HEMOGLOBIN 31 pg (25-35); MEAN CORPUSCULAR HGB CONC 33 g/dL (31-37); MEAN CORPUSCULAR VOLUME 93 fL (79-100); MONO # 0.4 x10^3/uL (0.0-1.1); MONO % 3 % (0-9); NEUT # 11.8 x10^3/uL (1.8-7.7); NEUT % 85 % (31-73); PLATELET COUNT 345 x10^3/uL (140-400); RED BLOOD COUNT 2.94 x10^6/uL (4.30-5.70); RED CELL DISTRIBUTION WIDTH 18.7 % (11.5-14.5)
[2021-03-30 11:37] LABS: CALCIUM 8.6 mg/dL (8.5-10.1); CREATININE 2.5 mg/dL (0.7-1.3); GFR 24.8; POTASSIUM 5.2 mmol/L (3.5-5.1)
[2021-03-30 11:39] LABS: ALBUMIN 4.1 g/dL (3.4-5.0); ALBUMIN/GLOBULIN RATIO 1.4 (1.0-1.7); TOTAL BILIRUBIN 0.7 mg/dL (0.2-1.0); URIC ACID 6.9 mg/dL (3.5-7.2)
[2021-03-30 12:48] LABS: % BANDS 7 % (0-9); % BASOS 3 % (0-3); % EOS 2 % (0-5); % LYMPHS 15 % (24-48); % METAS 1 % (0-0); % MONOS 5 % (0-10); % SEGS 67 % (35-66); NUCLEATED RBC 1; PLT ESTIMATE ADEQUATE (ADEQUATE)
[2021-03-30 12:49] LABS: OVALOCYTES MOD; POLYCHROMASIA SLIGHT; TEAR DROP CELLS OCC
[2021-03-30 12:50] LABS: ANISOCYTOSIS SLIGHT
== END ==
LOC: ONCLAB 10:36
PROVIDERS: ATTEND Internal Medicine Hematology & Oncology
DX: D75.81 Myelofibrosis (principal)
CPT/HCPCS: 36415; 80053; 82955; 83615; 84550; 85007; 85018; 85025

== ENCOUNTER → 2021-04-07 | Outpatient (CLI) | payer MEDICARE, BC ==
[2021-03-21 11:47] VITALS: BP 93/46
[2021-04-07 09:50] LABS: BASO # 0.2 x10^3/uL (0.0-0.2); BASO % 1 % (0-3); EOS # 0.2 x10^3/uL (0.0-0.7); EOS % 2 % (0-3); HEMATOCRIT 26.4 % (39.0-53.0); HEMOGLOBIN 8.9 g/dL (13.0-17.5); LYMPH # 1.8 x10^3/uL (1.0-4.8); LYMPH % 12 % (24-48); MEAN CORPUSCULAR HEMOGLOBIN 31 pg (25-35); MEAN CORPUSCULAR HGB CONC 34 g/dL (31-37); MEAN CORPUSCULAR VOLUME 93 fL (79-100); MONO # 0.5 x10^3/uL (0.0-1.1); MONO % 3 % (0-9); NEUT # 12.7 x10^3/uL (1.8-7.7); NEUT % 82 % (31-73); PLATELET COUNT 225 x10^3/uL (140-400); RED BLOOD COUNT 2.85 x10^6/uL (4.30-5.70); RED CELL DISTRIBUTION WIDTH 19.4 % (11.5-14.5); WHITE BLOOD COUNT 15.4 x10^3/uL (4.0-11.0)
[2021-04-07 10:05] LABS: CREATININE 2.2 mg/dL (0.7-1.3); GFR 28.8
[2021-04-07 10:11] LABS: ALBUMIN 4.2 g/dL (3.4-5.0); ALBUMIN/GLOBULIN RATIO 1.5 (1.0-1.7); POTASSIUM 5.5 mmol/L (3.5-5.1); TOTAL BILIRUBIN 0.7 mg/dL (0.2-1.0); URIC ACID 10.5 mg/dL (3.5-7.2)
[2021-04-07 11:14] LABS: % BANDS 31 % (0-9); % BASOS 4 % (0-3); % EOS 3 % (0-5); % LYMPHS 13 % (24-48); % MONOS 2 % (0-10); % MYELOS 6 % (0-0); % PROS 1 % (0-0); % SEGS 36 % (35-66)
[2021-04-07 11:15] LABS: % ATYL 1 % (0-0); NUCLEATED RBC 5; PLT ESTIMATE ADEQUATE (ADEQUATE); POLYCHROMASIA MOD
[2021-04-07 11:16] LABS: % OTHERS 2 % (0-0)
== END ==
LOC: ONCLAB 09:28
PROVIDERS: ATTEND Internal Medicine Hematology & Oncology
DX: D75.81 Myelofibrosis (principal)
CPT/HCPCS: 36415; 80053; 83615; 84550; 85007; 85025

== ENCOUNTER → 2021-04-21 | Outpatient (CLI) | payer MEDICARE, BC ==
[2021-03-21 11:47] VITALS: BP 93/46
[2021-04-21 11:07] LABS: BASO % 0 % (0-3); EOS # 0.2 x10^3/uL (0.0-0.7); EOS % 1 % (0-3); HEMATOCRIT 24.7 % (39.0-53.0); HEMOGLOBIN 8.5 g/dL (13.0-17.5); LYMPH # 1.5 x10^3/uL (1.0-4.8); LYMPH % 11 % (24-48); MEAN CORPUSCULAR HEMOGLOBIN 32 pg (25-35); MEAN CORPUSCULAR HGB CONC 34 g/dL (31-37); MEAN CORPUSCULAR VOLUME 93 fL (79-100); MONO # 0.5 x10^3/uL (0.0-1.1); MONO % 4 % (0-9); NEUT # 11.1 x10^3/uL (1.8-7.7); NEUT % 83 % (31-73); PLATELET COUNT 209 x10^3/uL (140-400); RED BLOOD COUNT 2.67 x10^6/uL (4.30-5.70); RED CELL DISTRIBUTION WIDTH 19.4 % (11.5-14.5); WHITE BLOOD COUNT 13.4 x10^3/uL (4.0-11.0)
[2021-04-21 11:30] LABS: CALCIUM 8.7 mg/dL (8.5-10.1); CREATININE 2.5 mg/dL (0.7-1.3); GFR 24.8
[2021-04-21 11:36] LABS: ALBUMIN 4.1 g/dL (3.4-5.0); ALBUMIN/GLOBULIN RATIO 1.4 (1.0-1.7); TOTAL BILIRUBIN 0.7 mg/dL (0.2-1.0); TOTAL PROTEIN 7.1 g/dL (6.4-8.2); URIC ACID 12.1 mg/dL (3.5-7.2)
[2021-04-21 13:06] LABS: % BANDS 10 % (0-9); % BASOS 5 % (0-3); % LYMPHS 22 % (24-48); % METAS 2 % (0-0); % MONOS 3 % (0-10); % SEGS 58 % (35-66); ANISOCYTOSIS SLIGHT; NUCLEATED RBC 2; PLT ESTIMATE ADEQUATE (ADEQUATE)
[2021-04-21 13:07] LABS: POLYCHROMASIA PRESENT
== END ==
LOC: ONCLAB 10:47
PROVIDERS: ATTEND Internal Medicine Hematology & Oncology
DX: D75.81 Myelofibrosis (principal)
CPT/HCPCS: 36415; 80053; 83615; 84550; 85007; 85025

== ENCOUNTER → 2021-05-29 | Outpatient (CLI) | payer MEDICARE, BC ==
[2021-03-21 11:47] VITALS: BP 93/46
[2021-05-29 12:34] LABS: BASO % 0 % (0-3); EOS # 0.2 x10^3/uL (0.0-0.7); EOS % 1 % (0-3); HEMATOCRIT 26.2 % (39.0-53.0); HEMOGLOBIN 8.9 g/dL (13.0-17.5); LYMPH # 2.2 x10^3/uL (1.0-4.8); LYMPH % 13 % (24-48); MEAN CORPUSCULAR HEMOGLOBIN 32 pg (25-35); MEAN CORPUSCULAR HGB CONC 34 g/dL (31-37); MEAN CORPUSCULAR VOLUME 94 fL (79-100); MONO # 0.5 x10^3/uL (0.0-1.1); MONO % 3 % (0-9); NEUT # 13.8 x10^3/uL (1.8-7.7); NEUT % 82 % (31-73); PLATELET COUNT 254 x10^3/uL (140-400); RED BLOOD COUNT 2.79 x10^6/uL (4.30-5.70); RED CELL DISTRIBUTION WIDTH 19.4 % (11.5-14.5); WHITE BLOOD COUNT 16.8 x10^3/uL (4.0-11.0)
[2021-05-29 12:43] LABS: CALCIUM 8.8 mg/dL (8.5-10.1); CREATININE 2.6 mg/dL (0.7-1.3); GFR 23.7; POTASSIUM 5.5 mmol/L (3.5-5.1)
[2021-05-29 12:48] LABS: ALBUMIN 4.3 g/dL (3.4-5.0); ALBUMIN/GLOBULIN RATIO 1.4 (1.0-1.7); TOTAL BILIRUBIN 0.7 mg/dL (0.2-1.0); TOTAL PROTEIN 7.4 g/dL (6.4-8.2); URIC ACID 10.6 mg/dL (3.5-7.2)
[2021-05-29 13:59] LABS: % BANDS 25 % (0-9); % BASOS 4 % (0-3); % LYMPHS 14 % (24-48); % METAS 4 % (0-0); % MONOS 2 % (0-10); % PROS 1 % (0-0); NUCLEATED RBC 5
[2021-05-29 14:02] LABS: PLT ESTIMATE ADEQUATE (ADEQUATE)
[2021-05-29 14:07] LABS: ANISOCYTOSIS SLIGHT; OVALOCYTES FEW; POIKILOCYTOSIS SLIGHT; POLYCHROMASIA PRESENT
[2021-05-29 14:29] LABS: % BLASTS 1 % (0-0); % MYELOS 8 % (0-0)
[2021-05-29 14:35] LABS: % SEGS 41 % (35-66)
== END ==
LOC: ONCLAB 11:45
PROVIDERS: ATTEND Internal Medicine Hematology & Oncology
DX: D75.81 Myelofibrosis (principal)
CPT/HCPCS: 36415; 80053; 83615; 84550; 85007; 85025

== ENCOUNTER → 2021-06-29 | Outpatient (CLI) | payer MEDICARE, BC ==
[2021-03-21 11:47] VITALS: BP 93/46
[2021-06-29 11:53] LABS: BASO # 0.2 x10^3/uL (0.0-0.2); BASO % 2 % (0-3); EOS # 0.2 x10^3/uL (0.0-0.7); EOS % 2 % (0-3); HEMATOCRIT 26.1 % (39.0-53.0); HEMOGLOBIN 8.7 g/dL (13.0-17.5); LYMPH # 1.8 x10^3/uL (1.0-4.8); LYMPH % 13 % (24-48); MEAN CORPUSCULAR HEMOGLOBIN 31 pg (25-35); MEAN CORPUSCULAR HGB CONC 33 g/dL (31-37); MEAN CORPUSCULAR VOLUME 95 fL (79-100); MONO # 0.4 x10^3/uL (0.0-1.1); MONO % 3 % (0-9); NEUT # 11.1 x10^3/uL (1.8-7.7); NEUT % 80 % (31-73); PLATELET COUNT 235 x10^3/uL (140-400); RED BLOOD COUNT 2.77 x10^6/uL (4.30-5.70); RED CELL DISTRIBUTION WIDTH 19.1 % (11.5-14.5); WHITE BLOOD COUNT 13.8 x10^3/uL (4.0-11.0)
[2021-06-29 11:58] LABS: CALCIUM 8.3 mg/dL (8.5-10.1); CREATININE 2.4 mg/dL (0.7-1.3); POTASSIUM 5.4 mmol/L (3.5-5.1)
[2021-06-29 12:04] LABS: ALBUMIN 4.3 g/dL (3.4-5.0); ALBUMIN/GLOBULIN RATIO 1.3 (1.0-1.7); TOTAL BILIRUBIN 0.8 mg/dL (0.2-1.0); TOTAL PROTEIN 7.6 g/dL (6.4-8.2); URIC ACID 11.4 mg/dL (3.5-7.2)
[2021-06-29 13:10] LABS: % BANDS 18 % (0-9); % BASOS 3 % (0-3); % EOS 3 % (0-5); % LYMPHS 25 % (24-48); % METAS 3 % (0-0); % MONOS 2 % (0-10); % MYELOS 9 % (0-0); % SEGS 37 % (35-66); NUCLEATED RBC 9
[2021-06-29 13:11] LABS: ANISOCYTOSIS PRESENT; HOWELL-JOLLY BODIES PRESENT; PLT ESTIMATE ADEQUATE (ADEQUATE); POIKILOCYTOSIS PRESENT; POLYCHROMASIA PRESENT
== END ==
LOC: ONCLAB 11:30
PROVIDERS: ATTEND Internal Medicine Hematology & Oncology
DX: D75.81 Myelofibrosis (principal)
CPT/HCPCS: 36415; 80053; 83615; 84550; 85007; 85025

== ENCOUNTER → 2021-07-27 | Outpatient (CLI) | payer MEDICARE, BC ==
[2021-03-21 11:47] VITALS: BP 93/46
[2021-07-27 11:39] LABS: BASO # 0.2 x10^3/uL (0.0-0.2); BASO % 1 % (0-3); EOS # 0.3 x10^3/uL (0.0-0.7); EOS % 2 % (0-3); HEMATOCRIT 26.6 % (39.0-53.0); HEMOGLOBIN 8.9 g/dL (13.0-17.5); LYMPH # 2.3 x10^3/uL (1.0-4.8); LYMPH % 14 % (24-48); MEAN CORPUSCULAR HEMOGLOBIN 32 pg (25-35); MEAN CORPUSCULAR HGB CONC 34 g/dL (31-37); MEAN CORPUSCULAR VOLUME 94 fL (79-100); MONO # 0.5 x10^3/uL (0.0-1.1); MONO % 3 % (0-9); NEUT # 13.2 x10^3/uL (1.8-7.7); NEUT % 80 % (31-73); PLATELET COUNT 324 x10^3/uL (140-400); RED BLOOD COUNT 2.82 x10^6/uL (4.30-5.70); RED CELL DISTRIBUTION WIDTH 17.8 % (11.5-14.5); WHITE BLOOD COUNT 16.5 x10^3/uL (4.0-11.0)
[2021-07-27 11:55] LABS: CALCIUM 8.4 mg/dL (8.5-10.1); CREATININE 2.3 mg/dL (0.7-1.3); GFR 27.4
[2021-07-27 12:10] LABS: POTASSIUM 5.7 mmol/L (3.5-5.1)
[2021-07-27 12:11] LABS: ALBUMIN/GLOBULIN RATIO 1.4 (1.0-1.7); TOTAL BILIRUBIN 0.7 mg/dL (0.2-1.0); TOTAL PROTEIN 6.9 g/dL (6.4-8.2); URIC ACID 11.6 mg/dL (3.5-7.2)
[2021-07-27 12:31] LABS: % BANDS 24 % (0-9); % BASOS 2 % (0-3); % EOS 2 % (0-5); % LYMPHS 15 % (24-48); % METAS 8 % (0-0); % MONOS 1 % (0-10); % MYELOS 4 % (0-0); % SEGS 44 % (35-66); NUCLEATED RBC 8; PLT ESTIMATE ADEQUATE (ADEQUATE); POLYCHROMASIA PRESENT
[2021-07-27 12:32] LABS: ANISOCYTOSIS MOD
[2021-07-27 12:33] LABS: OVALOCYTES OCC
== END ==
LOC: ONCLAB 11:18
PROVIDERS: ATTEND Physician Assistant
DX: D75.81 Myelofibrosis (principal)
CPT/HCPCS: 36415; 80053; 83615; 84550; 85007; 85025

== ENCOUNTER → 2021-08-11 | Outpatient (CLI) | payer MEDICARE, BC ==
[2021-03-21 11:47] VITALS: BP 93/46
[2021-08-11 12:14] LABS: BASO # 0.2 x10^3/uL (0.0-0.2); BASO % 1 % (0-3); EOS # 0.3 x10^3/uL (0.0-0.7); EOS % 2 % (0-3); HEMATOCRIT 27.8 % (39.0-53.0); LYMPH % 13 % (24-48); MEAN CORPUSCULAR HEMOGLOBIN 30 pg (25-35); MEAN CORPUSCULAR HGB CONC 32 g/dL (31-37); MEAN CORPUSCULAR VOLUME 93 fL (79-100); MONO # 0.5 x10^3/uL (0.0-1.1); MONO % 3 % (0-9); NEUT # 12.7 x10^3/uL (1.8-7.7); NEUT % 81 % (31-73); PLATELET COUNT 201 x10^3/uL (140-400); RED BLOOD COUNT 2.99 x10^6/uL (4.30-5.70); RED CELL DISTRIBUTION WIDTH 18.1 % (11.5-14.5); WHITE BLOOD COUNT 15.6 x10^3/uL (4.0-11.0)
[2021-08-11 12:34] LABS: CALCIUM 8.5 mg/dL (8.5-10.1); CREATININE 2.3 mg/dL (0.7-1.3); GFR 27.4; POTASSIUM 5.4 mmol/L (3.5-5.1)
[2021-08-11 12:38] LABS: ALBUMIN 4.3 g/dL (3.4-5.0); ALBUMIN/GLOBULIN RATIO 1.4 (1.0-1.7); TOTAL BILIRUBIN 0.8 mg/dL (0.2-1.0); TOTAL PROTEIN 7.3 g/dL (6.4-8.2); URIC ACID 11.3 mg/dL (3.5-7.2)
[2021-08-11 12:53] LABS: % ATYL 5 % (0-0); % BANDS 11 % (0-9); % BASOS 1 % (0-3); % EOS 3 % (0-5); % LYMPHS 7 % (24-48); % METAS 10 % (0-0); % MYELOS 13 % (0-0); % SEGS 50 % (35-66); NUCLEATED RBC 8
[2021-08-11 12:59] LABS: PLT ESTIMATE ADEQUATE (ADEQUATE); POLYCHROMASIA MOD
[2021-08-11 13:00] LABS: OVALOCYTES FEW
[2021-08-11 13:01] LABS: TEAR DROP CELLS FEW
[2021-08-11 13:02] LABS: ANISOCYTOSIS SLIGHT; POIKILOCYTOSIS SLIGHT
== END ==
LOC: ONCLAB 11:54
PROVIDERS: ATTEND Internal Medicine Hematology & Oncology
DX: D75.81 Myelofibrosis (principal)
CPT/HCPCS: 36415; 80053; 83615; 84550; 85007; 85025

== ENCOUNTER 2021-09-12 12:15 | Inpatient (IN) | payer MEDICARE, BC ==
[~2021-09-12] VITALS: Ht 177.8 cm; Wt 71.5 kg
[2021-09-12] MEDS ORDERED: DIPHTH,PERTUSS(ACELL),TET TOX 0.5 ML DISP.SYRIN. VAX IM ONE (13:45)
[2021-09-12] MEDS ORDERED: fentaNYL PF VIAL 100 MCG/2 ML VIAL IV PRN (13:45)
[2021-09-12] MEDS ORDERED: cefTRIAXone IV Push 1 GM VIAL. IVP ONE (13:45)
[2021-09-12] MEDS ORDERED: IV NORMAL SALINE 1000ML BAG 1,000 ML IV ONE (13:45)
--- NOTE | 2021-09-12 13:53 | PHYS DOC ---
Past Medical History Past Medical History: Cancer, Hypertension Additional Past Medical Histor: GOUT, " BONE MARROW CANCER" Past Surgical History: Other Additional Past Surgical Histo: skin cancer removed Smoking Status: Never Smoker Alcohol Use: None Drug Use: None General Adult EDM: Chief Complaint: HAND PROBLEM HPI: HPI: Patient is a 80 year old male who presents to the ED today complaining of right pinky finger redness, swelling, symptoms began a couple weeks ago. Patient states symptoms have gotten worse the finger is more red and swollen. He was seen by the PCP and sent to the ED today. He states he has had similar swelling and redness to the left index finger which was amputated last year after a bad infection. Patient denies any fever. Denies any nausea or vomiting. Review of Systems: Review of Systems: Constitutional: Denies fever or chills. [] Eyes: Denies change in visual acuity. [] HENT: Denies nasal congestion or sore throat. [] Respiratory: Denies cough or shortness of breath. [] Cardiovascular: Denies chest pain or edema. [] GI: Denies abdominal pain, nausea, vomiting, bloody stools or diarrhea. [] : Denies dysuria. [] Musculoskeletal: Reports right pinky finger redness, swelling Integument: Denies rash. [] Neurologic: Denies headache, focal weakness or sensory changes. [] Psychiatric: Denies depression or anxiety. [] Heart Score: C/O Chest Pain: N/A Risk Factors: Risk Factors: DM, Current or recent (<one month) smoker, HTN, HLP, family history of CAD, obesity. Risk Scores: Score 0 - 3: 2.5% MACE over next 6 weeks - Discharge Home Score 4 - 6: 20.3% MACE over next 6 weeks - Admit for Clinical Observation Score 7 - 10: 72.7% MACE over next 6 weeks - Early Invasive Strategies Current Medications: Current Medications Medications (Trade) Dose Ordered Sig/Duong Start Time Stop Time Status Last Admin Dose Admin Ceftriaxone Sodium (Rocephin) 1 gm 1X ONCE 09/12/21 13:45 09/12/21 13:46 DC Diphtheria/ Tetanus/Acell Pertussis (Boostrix) 0.5 ml ONCE ONCE 09/12/21 13:45 09/12/21 13:46 DC Fentanyl Citrate (Fentanyl 2ml Vial) 50 mcg PRN Q15MIN PRN 09/12/21 13:45 09/13/21 13:44 Sodium Chloride 1,000 ml @ 1,000 mls/hr 1X ONCE 09/12/21 13:45 09/12/21 14:44 Allergies: Allergies: Allergies Coded Allergies Type Severity Reaction Last Updated Verified Penicillins Allergy Intermediate 09/12/21 Yes Physical Exam: PE: Constitutional: Well developed, well nourished, no acute distress, non-toxic appearance. [] Skin: Warm, dry, no erythema, no rash. [] Back: No tenderness, no CVA tenderness. [] Extremities: Right pinky finger with moderate swelling especially mid phalanx. There is redness around the PIP joint with tenderness and warmth. Slightly limited range of motion to the right pinky finger especially flexion. Adequate ulnar sensation to the right pinky finger. +2 right radial pulse. Cap refill less than 2 seconds to the right pinky finger. Neurologic: Alert and oriented X 3, normal motor function, normal sensory function, no focal deficits noted. [] Psychologic: Affect normal, judgement normal, mood normal. [] Current Patient Data: Vital Signs: Vital Signs Date Time Temp Pulse Resp B/P (MAP) Pulse Ox O2 Delivery O2 Flow Rate FiO2 09/12/21 12:28 98.2 84 16 119/62 (81) 97 98.2 EKG: EKG: [] Radiology/Procedures: Radiology/Procedures: []PROCEDURE: FINGER(S) RIGHT XR FINGER(S)_RIGHT 2+VIEWS History: Reason: right pinky swelling and redness / Spl. Instructions: / History: Technique: PA view the hand and 2 additional views of the fifth digit. Comparison: None. Findings: Well-circumscribed erosion within the fifth proximal phalanx distal aspect measures 0.3 cm. Diffuse fifth digit soft tissue swelling. No acute fracture. No dislocation. Polyarticular degenerative changes most prominent within the distal interphalangeal joints. Vascular calcifications. Impression: 1. Fifth digit soft tissue swelling. 2. Well-circumscribed erosion within the fifth proximal phalanx distal aspect, may relate to inflammatory arthropathy. Correlate for infection. Recommend fol low-up. Electronically signed by: Thad Henry DO (09/12/2021 1:55 PM) [id number] DICTATED and SIGNED BY: THAD HENRY DO DATE: 09/12/21 [id number] 0 Course & Med Decision Making: Course & Med Decision Making Pertinent Labs and Imaging studies reviewed. (See chart for details) This is a 80-year-old male patient presenting to the ED today complaining of right pinky finger pain, swelling, redness, symptoms began a couple weeks ago and have gotten worse. Right pinky finger x-rays interpreted by radiologist were noted for fifth digit soft tissue swelling. Well-circumscribed erosion within the fifth proximal phalanx distal aspect, may relate to inflammatory arthropathy. Correlate for infection. Recommend follow-up. CBC with a WBC of 19.4, hemoglobin 8.8 with hematocrit of 26.6, sed rate 28, creatinine 2.6 with BUN of 53, history of kidney disease, this is around his baseline. Uric acid 12.6, CRP 6.5. Vitals in the ED temperature 98.2, heart rate 84, respirations 16 on room air, blood pressure 118/62, O2 sats 97% Spoke with Dr. Grewal, he preferred with transfer this patient to a different hospital with specialist service that can take care of his infection and possibly amputate the right pinky finger. If unable to find a place to transfer patient he can be admitted Spoke to , transfer line, they state they are very full and will not accept any transfers Spoke with [facility] transfer line, they and not able to accept patient Not able to get any hospital within the local area to tx patient to spoke with Dr. Saldaña who accepted patient for admission Dragon Disclaimer: Tg Disclaimer: This electronic medical record was generated, in whole or in part, using a voice recognition dictation system. Departure Departure Impression: Primary Impression: CRF (chronic renal failure) Qualified Codes: N18.9 - Chronic kidney disease, unspecified Additional Impressions: Finger osteomyelitis, right Anemia Qualified Codes: D64.9 - Anemia, unspecified Leukocytosis Qualified Codes: D72.829 - Elevated white blood cell count, unspecified Disposition: ADMITTED INPATIENT Condition: STABLE Referrals: FROY SALDAÑA MD (PCP) JACKY RYDER T[employer]ING [employer]ER Sep 12, 2021 13:53
--- NOTE | 2021-09-12 13:57 | RAD ---
XR FINGER(S)_RIGHT 2+VIEWS History: Reason: right pinky swelling and redness / Spl. Instructions: / History: Technique: PA view the hand and 2 additional views of the fifth digit. Comparison: None. Findings: Well-circumscribed erosion within the fifth proximal phalanx distal aspect measures 0.3 cm. Diffuse f ifth digit soft tissue swelling. No acute fracture. No dislocation. Polyarticular degenerative change s most prominent within the distal interphalangeal joints. Vascular calcifications. Impression: 1. Fifth digit soft tissue swelling. 2. Well-circumscribed erosion within the fifth proximal phalanx distal aspect, may relate to inflamm atory arthropathy. Correlate for infection. Recommend follow-up. Electronically signed by: Thad Henry DO (09/12/2021 1:55 PM) [id number]
[2021-09-12 14:17] LABS: BASO # 0.2 x10^3/uL (0.0-0.2); BASO % 1 % (0-3); EOS # 0.4 x10^3/uL (0.0-0.7); EOS % 2 % (0-3); HEMATOCRIT 26.6 % (39.0-53.0); HEMOGLOBIN 8.8 g/dL (13.0-17.5); LYMPH # 2.8 x10^3/uL (1.0-4.8); LYMPH % 14 % (24-48); MEAN CORPUSCULAR HEMOGLOBIN 30 pg (25-35); MEAN CORPUSCULAR HGB CONC 33 g/dL (31-37); MEAN CORPUSCULAR VOLUME 92 fL (79-100); MONO # 0.8 x10^3/uL (0.0-1.1); MONO % 4 % (0-9); NEUT # 15.3 x10^3/uL (1.8-7.7); NEUT % 79 % (31-73); PLATELET COUNT 250 x10^3/uL (140-400); WHITE BLOOD COUNT 19.4 x10^3/uL (4.0-11.0)
[2021-09-12 14:39] LABS: CALCIUM 7.9 mg/dL (8.5-10.1); CREATININE 2.6 mg/dL (0.7-1.3); GFR 23.7
[2021-09-12 14:45] LABS: ALBUMIN 4.2 g/dL (3.4-5.0); ALBUMIN/GLOBULIN RATIO 1.2 (1.0-1.7); C-REACTIVE PROTEIN 6.5 mg/L (0-3.3); TOTAL BILIRUBIN 0.8 mg/dL (0.2-1.0); TOTAL PROTEIN 7.7 g/dL (6.4-8.2); URIC ACID 12.6 mg/dL (3.5-7.2)
[2021-09-12 16:31] LABS: % BANDS 21 % (0-9); % BLASTS 1 % (0-0); % LYMPHS 9 % (24-48); % MONOS 4 % (0-10); % MYELOS 9 % (0-0); % SEGS 43 % (35-66); NUCLEATED RBC 10; PLT ESTIMATE ADEQUATE (ADEQUATE)
[2021-09-12 16:33] LABS: % BASOS 2 % (0-3); % EOS 4 % (0-5)
[2021-09-12 16:34] LABS: % METAS 7 % (0-0)
[2021-09-12 17:00] LABS: ANISOCYTOSIS SLIGHT; POIKILOCYTOSIS SLIGHT; POLYCHROMASIA PRESENT
[2021-09-12] MEDS ORDERED: VANCOMYCIN PER PHARMACY MC PRN (19:30)
[2021-09-12] MEDS ORDERED: VANCOMYCIN 1.75 GM in IV NORMAL SALINE 500ML BAG 500 ML IV ONE (20:00)
--- NOTE | 2021-09-12 21:09 | NUR ---
Pharmacy Vancomycin Dosing Note S: Consulted to monitor and dose vancomycin started 09/12/21. O: CAROLINA JUAREZ is a 80 year old M with Cellulitis LABS: Last BUN: 53 Last Creatinine: 2.6 Creatinine Clearance: 22 mL/min Last WBC: 19.4 Tmax (past 24 hours): AFEBRILE Vancomycin Dosing: Dosing Weight: Actual Target Trough: 10-20 A: Based on: VANCO dosing calculator P: 1. Begin Vancomycin 1750mg LOAD dose, then 1000 mg IV q36h 2. Follow up Trough level on 09/15/21 at 1930 3. Pharmacy will continue to monitor, follow and adjust therapy as needed. LILA LOPEZ [facility], 09/12/21 [id number]
[2021-09-12] MEDS ORDERED: MORPHINE SULFATE 4 MG/ML INJ. IVP PRN (21:15)
[2021-09-12] MEDS ORDERED: ONDANSETRON PF 4 MG/2 ML VIAL. IVP PRN (21:15)
[2021-09-13] VITALS (12 sets, daily range): BP systolic 99–123; BP diastolic 53–76
[2021-09-13] MEDS ORDERED: HYDROmorphone 2 MG/ML INJ. IVP PRN (07:00)
[2021-09-13] MEDS ORDERED: MORPHINE SULFATE 2 MG/ML INJ. IVP PRN (07:00)
[2021-09-13] MEDS ORDERED: fentaNYL PF VIAL 100 MCG/2 ML VIAL IVP PRN ×2 (07:00)
[2021-09-13] MEDS ORDERED: IV RINGERS,LACTATED 1000ML 1,000 ML IV SCH (07:00)
[2021-09-13] MEDS ORDERED: PROCHLORPERAZINE 10 MG/2 ML VIAL. IVP PRN (07:00)
--- NOTE | 2021-09-13 08:29 | PDOC ---
Provider Note Date of Service: DATE: 09/13/21 TIME: 08:26 Provider Note [id number] Justifications for Admission Other Justification FROY SALDAÑA MD Sep 13, 2021 08:28
[2021-09-13 08:38] LABS: ALBUMIN 4.2 g/dL (3.4-5.0); ALBUMIN/GLOBULIN RATIO 1.3 (1.0-1.7); BASO # 0.4 x10^3/uL (0.0-0.2); BASO % 3 % (0-3); CALCIUM 8.1 mg/dL (8.5-10.1); CREATININE 2.4 mg/dL (0.7-1.3); EOS # 0.3 x10^3/uL (0.0-0.7); EOS % 2 % (0-3); HEMATOCRIT 24.7 % (39.0-53.0); HEMOGLOBIN 8.3 g/dL (13.0-17.5); LYMPH % 13 % (24-48); MEAN CORPUSCULAR HEMOGLOBIN 30 pg (25-35); MEAN CORPUSCULAR HGB CONC 34 g/dL (31-37); MEAN CORPUSCULAR VOLUME 91 fL (79-100); MONO # 0.8 x10^3/uL (0.0-1.1); MONO % 5 % (0-9); NEUT # 12.2 x10^3/uL (1.8-7.7); NEUT % 77 % (31-73); PLATELET COUNT 214 x10^3/uL (140-400); RED BLOOD COUNT 2.73 x10^6/uL (4.30-5.70); RED CELL DISTRIBUTION WIDTH 17.6 % (11.5-14.5); TOTAL BILIRUBIN 0.7 mg/dL (0.2-1.0); TOTAL PROTEIN 7.5 g/dL (6.4-8.2); WHITE BLOOD COUNT 15.9 x10^3/uL (4.0-11.0)
[2021-09-13] MEDS: DAPTOmycin (GENERIC) IVPB 430 MG in IV NORMAL SALINE 50ML 50 ML IV SCH (09:10)
[2021-09-13] MEDS ORDERED: fentaNYL PF VIAL 100 MCG/2 ML VIAL ONE (09:15)
[2021-09-13] MEDS ORDERED: ONDANSETRON PF 4 MG/2 ML VIAL. ONE (09:16)
[2021-09-13] MEDS ORDERED: LIDOCAINE 2% PF 5 ML VIAL. ONE (09:16)
[2021-09-13] MEDS ORDERED: PROPOFOL 10 MG/ML (20ML) VIAL. IV ONE (09:16)
[2021-09-13] MEDS ORDERED: DEXAMETHASONE SOD PHOS 4 MG/ML VIAL ONE (09:16)
--- NOTE | 2021-09-13 09:35 | PDOC2 ---
CONSULT Date of Consult Date of Consult DATE: 09/13/21 TIME: 08:59 Reason for Consult Reason for Consult: Right little finger infection or gout Identification/Chief Complaint Chief Complaint Right little finger swelling pain tenderness and redness. Source Source: Chart review, Patient History of Present Illness Reason for Visit: This 80-year-old right-handed retired man said his right little finger proximal interphalangeal joint became swollen and appeared white in color 2 weeks ago, and then about a week ago turned red, and became even more swollen and painful. He was admitted to [place] under Dr. Tejada with evidence of infection of the joint, and IV antibiotics have been started. About a year and a half ago, in April 2020, he had a similar episode on the left index finger, treated at , which was treated surgically with index finger amputation as the only operation. He does have a history of gout, and reports gouty episodes in his feet and toes previously. Past Medical History Cardiovascular: HTN Heme/Onc: Other (He has myelofibrosis, treated by an oncologist. He said it started 10 years ago as polycythemia vera, and has progressed. He takes Jakafi 5 mg BID and has ongoing care with oncology.) Rheumatologic: Gout Renal/: Chronic renal insuff Dermatology: Other (Multiple skin cancers, has surgery frequently for skin cancer removal including one on his head last month.) Past Surgical History Past Surgical History: Cataract Removal, Other (multiple skin cancer removal surgeries. 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 He lives with his . He said he is been retired for 30 years. No ALCOHOL: none Lives: with Family Current Problem List Problem List Problems Medical Problems: (1) Anemia Status: Acute (2) CRF (chronic renal failure) Status: Acute (3) Finger osteomyelitis, right Status: Acute (4) Leukocytosis Status: Acute Current Medications Current Medications Current Medications Fentanyl Citrate (Fentanyl 2ml Vial) 50 mcg PRN Q15MIN PRN IV PAIN GREATER THAN 3/10; Start 09/12/21 at 13:45; Stop 09/13/21 at 13:44 Diphtheria/ Tetanus/Acell Pertussis (Boostrix) 0.5 ml ONCE ONCE VAX IM Last administered on 09/12/21at 14:11; Start 09/12/21 at 13:45; Stop 09/12/21 at 13:46; Status DC Sodium Chloride 1,000 ml @ 1,000 mls/hr 1X ONCE IV Last administered on 09/12/21at 14:08; Start 09/12/21 at 13:45; Stop 09/12/21 at 14:44; Status DC Ceftriaxone Sodium (Rocephin) 1 gm 1X ONCE IVP Last administered on 09/12/21at 14:11; Start 09/12/21 at 13:45; Stop 09/12/21 at 13:46; Status DC Vancomycin HCl (Vanco Per Pharmacy) 1 each PRN DAILY PRN MC SEE COMMENTS Last administered on 09/12/21at 21:05; Start 09/12/21 at 19:30; Stop 09/13/21 at 08:41; Status DC Vancomycin HCl 1.75 gm/Sodium Chloride 500 ml @ 250 mls/hr 1X ONCE IV Last administered on 09/12/21at 20:05; Start 09/12/21 at 20:00; Stop 09/12/21 at 21:59; Status DC Vancomycin HCl 1 gm/Sodium Chloride 250 ml @ 250 mls/hr Q36H IV ; Start 09/14/21 at 08:00; Stop 09/13/21 at 08:22; Status DC Vancomycin HCl (Vancomycin Trough Level) 1 each 1X ONCE MC ; Start 09/15/21 at 19:30; Stop 09/15/21 at 19:31; Status Cancel Ondansetron HCl (Zofran) 4 mg PRN Q8HRS PRN IVP NAUSEA/VOMITING 1ST CHOICE; Start 09/12/21 at 21:15; Stop 09/13/21 at 21:14 Morphine Sulfate (Morphine Sulfate) 4 mg PRN Q2HR PRN IVP SEVERE PAIN 7-10; Start 09/12/21 at 21:15; Stop 09/13/21 at 21:14 Fentanyl Citrate (Fentanyl 2ml Vial) 25 mcg PRN Q5MIN PRN IVP MILD PAIN 1-3; Start 09/13/21 at 07:00; Stop 09/14/21 at 06:59 Fentanyl Citrate (Fentanyl 2ml Vial) 50 mcg PRN Q5MIN PRN IVP MODERATE PAIN 4- 6; Start 09/13/21 at 07:00; Stop 09/14/21 at 06:59 Morphine Sulfate (Morphine Sulfate) 1 mg PRN Q10MIN PRN IVP SEVERE PAIN 7-10; Start 09/13/21 at 07:00; Stop 09/14/21 at 06:59 Ringer's Solution 1,000 ml @ 30 mls/hr Q24H IV Last administered on 09/13/21at 08:40; Start 09/13/21 at 07:00; Stop 09/13/21 at 18:59 Hydromorphone HCl (Dilaudid) 0.5 mg PRN Q10MIN PRN IVP SEVERE PAIN 7-10, 2nd CHOICE; Start 09/13/21 at 07:00; Stop 09/14/21 at 06:59 Prochlorperazine Edisylate (Compazine) 5 mg PACU PRN PRN IVP NAUSEA, MRX1; Start 09/13/21 at 07:00; Stop 09/14/21 at 06:59 Daptomycin 430 mg/ Sodium Chloride 50 ml @ 100 mls/hr QODAY IV ; Start 09/13/21 at 10:00 Active Scripts Active Reported Jakafi (Ruxolitinib Phosphate) 10 Mg Tablet 10 Mg PO BID Amlodipine Besylate 5 Mg Tablet 5 Mg PO DAILY Hydroxyurea 500 Mg Capsule 500 Mg PO two a week. Allergies Allergies: Coded Allergies: Penicillins (Verified Allergy, Intermediate, 09/12/21) ROS Review of System Constitutional: Denies fever or chills, even with finger infection. Some weight loss, and he said his oncologist is following this. Eyes: Denies change in visual acuity. Has lens implants. HENT: Denies nasal congestion or sore throat. Respiratory: Denies cough or shortness of breath. Denies coughing up blood. Cardiovascular: Denies chest pain, shortness of breath, or edema. GI: Denies abdominal pain, nausea, vomiting, bloody stools or diarrhea. : Denies dysuria. Musculoskeletal: Reports right pinky finger redness, swelling. Has had prior episodes of gout. Integument: Multiple skin cancers have been removed. Neurologic: Denies headache, focal weakness or sensory changes. Psychiatric: Denies depression or anxiety. Physical Exam General: Alert, Cooperative HEENT: Other (lens implants apparent.) Lungs: Normal air movement Heart: Regular rate Abdomen: Soft Extremities: Other (The right little finger proximal interphalangeal joint is swollen, mostly along the dorsal surface. There is no evidence of flexor tenosynovitis. There is erythema, slight bogginess, no drainage or open wound, and tenderness. Slight warmth is present. The joint itself has minimal motion but he can easily move the metacarpophalangeal joint and the distal interphalangeal joint does not seem infected or involved. The fingertip capillary refill and sensation seem normal. On appearance this seems to be a septic or gouty proximal interphalangeal joint with some extension now to the adjacent phalanges.) Skin: No significant lesion Neuro: Normal speech, Normal tone, Sensation intact MUSCULOSKELETAL: Abnormal exam of right (littel finger as above. The left index finger has previously been amputated through the proximal phalanx and appears well-healed.) Vitals VITALS Vital Signs Date Time Temp Pulse Resp B/P (MAP) Pulse Ox O2 Delivery O2 Flow Rate FiO2 09/13/21 08:20 98.0 84 18 120/62 98 Room Air 98.0 Labs Labs Laboratory Tests Test 09/12/21 13:56 09/12/21 16:42 09/13/21 07:45 White Blood Count 19.4 x10^3/uL (4.0-11.0) 15.9 x10^3/uL (4.0-11.0) Red Blood Count 2.90 x10^6/uL (4.30-5.70) 2.73 x10^6/uL (4.30-5.70) Hemoglobin 8.8 g/dL (13.0-17.5) 8.3 g/dL (13.0-17.5) Hematocrit 26.6 % (39.0-53.0) 24.7 % (39.0-53.0) Mean Corpuscular Volume 92 fL (79-100) 91 fL (79-100) Mean Corpuscular Hemoglobin 30 pg (25-35) 30 pg (25-35) Mean Corpuscular Hemoglobin Concent 33 g/dL (31-37) 34 g/dL (31-37) Red Cell Distribution Width 18.0 % (11.5-14.5) 17.6 % (11.5-14.5) Platelet Count 250 x10^3/uL (140-400) 214 x10^3/uL (140-400) Neutrophils (%) (Auto) 79 % (31-73) 77 % (31-73) Lymphocytes (%) (Auto) 14 % (24-48) 13 % (24-48) Monocytes (%) (Auto) 4 % (0-9) 5 % (0-9) Eosinophils (%) (Auto) 2 % (0-3) 2 % (0-3) Basophils (%) (Auto) 1 % (0-3) 3 % (0-3) Neutrophils # (Auto) 15.3 x10^3/uL (1.8-7.7) 12.2 x10^3/uL (1.8-7.7) Lymphocytes # (Auto) 2.8 x10^3/uL (1.0-4.8) 2.0 x10^3/uL (1.0-4.8) Monocytes # (Auto) 0.8 x10^3/uL (0.0-1.1) 0.8 x10^3/uL (0.0-1.1) Eosinophils # (Auto) 0.4 x10^3/uL (0.0-0.7) 0.3 x10^3/uL (0.0-0.7) Basophils # (Auto) 0.2 x10^3/uL (0.0-0.2) 0.4 x10^3/uL (0.0-0.2) Segmented Neutrophils % 43 % (35-66) Band Neutrophils % 21 % (0-9) Lymphocytes % 9 % (24-48) Monocytes % 4 % (0-10) Eosinophils % 4 % (0-5) Basophils % 2 % (0-3) Metamyelocytes % 7 % (0-0) Myelocytes % 9 % (0-0) Promyelocytes % % (0-0) Blast Cells % (Manual) 1 % (0-0) Nucleated Red Blood Cells 10 Platelet Estimate Adequate (ADEQUATE) Polychromasia Present Poikilocytosis Slight Basophilic Stippling Present Anisocytosis Slight Erythrocyte Sedimentation Rate 28 (0-15) Sodium Level 138 mmol/L (136-145) 139 mmol/L (136-145) Potassium Level 5.0 mmol/L (3.5-5.1) 5.0 mmol/L (3.5-5.1) Chloride Level 100 mmol/L (98-107) 103 mmol/L (98-107) Carbon Dioxide Level 26 mmol/L (21-32) 24 mmol/L (21-32) Anion Gap 12 (6-14) 12 (6-14) Blood Urea Nitrogen 53 mg/dL (8-26) 49 mg/dL (8-26) Creatinine 2.6 mg/dL (0.7-1.3) 2.4 mg/dL (0.7-1.3) Estimated GFR (Cockcroft-Gault) 23.7 26.0 BUN/Creatinine Ratio 20 (6-20) 20 (6-20) Glucose Level 91 mg/dL (70-99) 101 mg/dL (70-99) Lactic Acid Level 1.1 mmol/L (0.4-2.0) Uric Acid 12.6 mg/dL (3.5-7.2) Calcium Level 7.9 mg/dL (8.5-10.1) 8.1 mg/dL (8.5-10.1) Total Bilirubin 0.8 mg/dL (0.2-1.0) 0.7 mg/dL (0.2-1.0) Aspartate Amino Transf (AST/SGOT) 28 U/L (15-37) 22 U/L (15-37) Alanine Aminotransferase (ALT/SGPT) 30 U/L (16-63) 25 U/L (16-63) Alkaline Phosphatase 98 U/L (46-116) 96 U/L (46-116) C-Reactive Protein, Quantitative 6.5 mg/L (0-3.3) Total Protein 7.7 g/dL (6.4-8.2) 7.5 g/dL (6.4-8.2) Albumin 4.2 g/dL (3.4-5.0) 4.2 g/dL (3.4-5.0) Albumin/Globulin Ratio 1.2 (1.0-1.7) 1.3 (1.0-1.7) SARS-CoV-2 Antigen (Rapid) Negative (NEGATIVE) Laboratory Tests Test 09/12/21 13:56 09/12/21 16:42 09/13/21 07:45 White Blood Count 19.4 x10^3/uL (4.0-11.0) 15.9 x10^3/uL (4.0-11.0) Red Blood Count 2.90 x10^6/uL (4.30-5.70) 2.73 x10^6/uL (4.30-5.70) Hemoglobin 8.8 g/dL (13.0-17.5) 8.3 g/dL (13.0-17.5) Hematocrit 26.6 % (39.0-53.0) 24.7 % (39.0-53.0) Mean Corpuscular Volume 92 fL (79-100) 91 fL (79-100) Mean Corpuscular Hemoglobin 30 pg (25-35) 30 pg (25-35) Mean Corpuscular Hemoglobin Concent 33 g/dL (31-37) 34 g/dL (31-37) Red Cell Distribution Width 18.0 % (11.5-14.5) 17.6 % (11.5-14.5) Platelet Count 250 x10^3/uL (140-400) 214 x10^3/uL (140-400) Neutrophils (%) (Auto) 79 % (31-73) 77 % (31-73) Lymphocytes (%) (Auto) 14 % (24-48) 13 % (24-48) Monocytes (%) (Auto) 4 % (0-9) 5 % (0-9) Eosinophils (%) (Auto) 2 % (0-3) 2 % (0-3) Basophils (%) (Auto) 1 % (0-3) 3 % (0-3) Neutrophils # (Auto) 15.3 x10^3/uL (1.8-7.7) 12.2 x10^3/uL (1.8-7.7) Lymphocytes # (Auto) 2.8 x10^3/uL (1.0-4.8) 2.0 x10^3/uL (1.0-4.8) Monocytes # (Auto) 0.8 x10^3/uL (0.0-1.1) 0.8 x10^3/uL (0.0-1.1) Eosinophils # (Auto) 0.4 x10^3/uL (0.0-0.7) 0.3 x10^3/uL (0.0-0.7) Basophils # (Auto) 0.2 x10^3/uL (0.0-0.2) 0.4 x10^3/uL (0.0-0.2) Segmented Neutrophils % 43 % (35-66) Band Neutrophils % 21 % (0-9) Lymphocytes % 9 % (24-48) Monocytes % 4 % (0-10) Eosinophils % 4 % (0-5) Basophils % 2 % (0-3) Metamyelocytes % 7 % (0-0) Myelocytes % 9 % (0-0) Promyelocytes % % (0-0) Blast Cells % (Manual) 1 % (0-0) Nucleated Red Blood Cells 10 Platelet Estimate Adequate (ADEQUATE) Polychromasia Present Poikilocytosis Slight Basophilic Stippling Present Anisocytosis Slight Erythrocyte Sedimentation Rate 28 (0-15) Sodium Level 138 mmol/L (136-145) 139 mmol/L (136-145) Potassium Level 5.0 mmol/L (3.5-5.1) 5.0 mmol/L (3.5-5.1) Chloride Level 100 mmol/L (98-107) 103 mmol/L (98-107) Carbon Dioxide Level 26 mmol/L (21-32) 24 mmol/L (21-32) Anion Gap 12 (6-14) 12 (6-14) Blood Urea Nitrogen 53 mg/dL (8-26) 49 mg/dL (8-26) Creatinine 2.6 mg/dL (0.7-1.3) 2.4 mg/dL (0.7-1.3) Estimated GFR (Cockcroft-Gault) 23.7 26.0 BUN/Creatinine Ratio 20 (6-20) 20 (6-20) Glucose Level 91 mg/dL (70-99) 101 mg/dL (70-99) Lactic Acid Level 1.1 mmol/L (0.4-2.0) Uric Acid 12.6 mg/dL (3.5-7.2) Calcium Level 7.9 mg/dL (8.5-10.1) 8.1 mg/dL (8.5-10.1) Total Bilirubin 0.8 mg/dL (0.2-1.0) 0.7 mg/dL (0.2-1.0) Aspartate Amino Transf (AST/SGOT) 28 U/L (15-37) 22 U/L (15-37) Alanine Aminotransferase (ALT/SGPT) 30 U/L (16-63) 25 U/L (16-63) Alkaline Phosphatase 98 U/L (46-116) 96 U/L (46-116) C-Reactive Protein, Quantitative 6.5 mg/L (0-3.3) Total Protein 7.7 g/dL (6.4-8.2) 7.5 g/dL (6.4-8.2) Albumin 4.2 g/dL (3.4-5.0) 4.2 g/dL (3.4-5.0) Albumin/Globulin Ratio 1.2 (1.0-1.7) 1.3 (1.0-1.7) SARS-CoV-2 Antigen (Rapid) Negative (NEGATIVE) Images Images Report reviewed and images independently reviewed. Swelling at the proximal interphalangeal joint. Cystic changes at the proximal phalanx near the joint appear chronic, possibly inflammatory arthropathy. [facility] [address] [place] [address] IMAGING REPORT Signed PATIENT: CAROLINA JUAREZ ACCOUNT: [id number] : 1940 LOCATION: ER AGE: 80 SEX: M EXAM STATUS: REG ER ORD. PHYSICIAN: JACKY RYDER APRN REASON: right pinky swelling and redness PROCEDURE: FINGER(S) RIGHT XR FINGER(S)_RIGHT 2+VIEWS History: Reason: right pinky swelling and redness / Spl. Instructions: / History: Technique: PA view the hand and 2 additional views of the fifth digit. Comparison: None. Findings: Well-circumscribed erosion within the fifth proximal phalanx distal aspect measures 0.3 cm. Diffuse fifth digit soft tissue swelling. No acute fracture. No dislocation. Polyarticular degenerative changes most prominent within the distal interphalangeal joints. Vascular calcifications. Impression: 1. Fifth digit soft tissue swelling. 2. Well-circumscribed erosion within the fifth proximal phalanx distal aspect, may relate to inflammatory arthropathy. Correlate for infection. Recommend follow-up. Electronically signed by: Thad Henry DO (09/12/2021 1:55 PM) [id number] Assessment/Plan Assessment/Plan This 80-year-old right-handed retired man has a right middle finger proximal interphalangeal joint which is swollen, tender and red. His uric acid is 12.6. He has a history of gout, and the x-ray shows some chronic changes. I think it is likely that there are gouty crystals present in the joint, and some element of inflammatory arthritis with the chronic-appearing x-ray changes. In addition, this does seem infected. He has elevated white blood cell count 19K, elevated sed rate, and elevated C-reactive protein, and the exam appearance of infection. A gouty joint with a bacterial superinfection seems likely. 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 I will take a culture to look for evidence of infection, and in addition get a specimen to the lab to evaluate for gouty crystals. The nature of uric acid crystals makes it difficult for those to be identified in the lab, as they dissolve quickly. Drainage of the gout crystals from the joint should help the clinical course. I discussed all of this with the patient. I do not recommend primary amputation in this case. I did explain that should there be progressive and severe infection or need for multiple surgeries that amputation in the future could be possible, but I am hopeful this will resolve with incision and drainage and medical treatment. All of his questions were answered and he desires to proceed with right little finger incision and drainage. JANKI GORDON MD Sep 13, 2021 09:35
[2021-09-13] MEDS ORDERED: BUPIVACAINE MPF 0.25% 30 ML VIAL. ONE (09:36)
[2021-09-13] MEDS ORDERED: BUPIVACAINE-EPI 0.25% 30 ML VIAL KIT. ONE (09:36)
[2021-09-13] MEDS ORDERED: BUPIVACAINE MPF 0.25% 30 ML VIAL. INJ ONE (10:12)
--- NOTE | 2021-09-13 10:50 | PDOC4 ---
Operative Note Operative Note Date of Procedure: September 13, 2021 Pre-Op Diagnosis: 1. 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 Idiopathic gout, right hand M10.041 3. 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 Idiopathic gout, right hand M10.041 3. 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 Specimens Obtained: 1. Right little finger joint material sent in a specimen cup for crystal examination. 2. Right little finger swab cultures for gram stain, aerobic, and anaerobic cultures. Complications: none Drains: none Tourniquet: [place] at right little finger, about 15 minutes Findings: White crystalline material and cloudy fluid at the right little finger proximal interphalangeal joint. I definitely believe gout is part of the pathology. I am unsure if this had secondary bacterial infection but I took cultures. Indications for Procedure: This 80-year-old right-handed retired man has a right middle finger proximal interphalangeal joint which is swollen, tender and red. He has a history of gout, and the x-ray shows some chronic changes. I think it is likely that there are gouty crystals present in the joint, and some element of inflammatory arthritis with the chronic-appearing x-ray changes. In addition, this does seem infected. He has elevated white blood cell count 19K, elevated sed rate, and elevated C-reactive protein, and the exam appearance of infection. A gouty joint with a bacterial superinfection seems likely. I do recommend surgical incision and drainage of the joint. I will take a culture to look for evidence of infection, and in addition get a specimen to the lab to evaluate for gouty crystals. The nature of uric acid crystals makes it difficult for those to be identified in the lab, as they dissolve quickly. I discussed all of this with the patient. I do not recommend primary amputation in this case despite the previous amputation of a finger from his other hand. I did explain that should there be progressive and severe infection or need for multiple surgeries that amputation in the future could be possible, but I am hopeful this will resolve with incision and drainage and medical treatment. There are some potential risks of surgery such as tendon or joint injury, neurovascular injury which could lead to numbness in the finger permanently, or other potential surgical or anesthetic complications. All of his questions about surgery were answered and he desires to proceed. Written consent was obtained. Procedure in Detail: The patient was identified in the preoperative holding area. The correct right little finger was marked by me. The patient was taken to the operating room where general anesthetic was used. The patient was positioned supine on the operating table. The patient remains on scheduled antibiotics so no additional antibiotics were given. A timeout procedure was performed. The limb was prepared in sterile fashion with ChloraPrep and sterile drapes were applied. A Anya drain was used as a tourniquet around the base of the right little finger, and secured with a hemostat. A dorsolateral incision was made over the radial aspect of the right little finger proximal interphalangeal joint, centered over the area of redness and swelling. Sharp dissection was used with a 15 blade scalpel. White crystalline material was noted, consistent with gout. There is cloudy fluid within the joint and a bacterial superinfection is possible but not highly suspected. I excised the white abnormal material with rongeurs, and sent a specimen in a cup for crystal examination. I used a swab culture in the joint and in the white abnormal material, and sent that swab for aerobic, anaerobic, and Gram stain. I did further arthrotomy, irrigation, and drainage. A curette was used to remove the white abnormal material from the tissues and the joint. Copious saline irrigation was used with a syringe, to help flush all of the abnormal material. The joint was taken through range of motion while irrigation was performed to make sure the joint was flushed thoroughly. The joint does appear arthritic with cartilage thinning and fragmentation, but there is no apparent bone lysis. The extensor tendon is partially involved and destroyed along its radial aspect, and the tendon is friable but the central tendon appears intact. The Anya tourniquet was released. Bovie electrocautery was used carefully for hemostasis. The skin was reapproximated with #3-0 Prolene interrupted simple and horizontal mattress sutures. A digital block anesthetic was performed with 12 mL of 0.25% bupivacaine without epinephrine. Xeroform and a sterile dressing were applied. Needle and sponge counts were correct. There were no apparent complications. JANKI COLLAZO MD Sep 13, 2021 10:50
--- NOTE | 2021-09-13 10:55 | HP ---
DATE OF SERVICE: 09/13/2021 ADMIT DATE: 09/12/2021 CHIEF COMPLAINT: Swollen right fifth finger. HISTORY OF PRESENT ILLNESS: An 80-year-old white male who has had increasing swelling of the PIP joint of the right fifth finger for the last 3 or 4 days. He can recall no injury or any reason why has had this recently, although he says this has happened before requiring a left index finger amputation in the past. He has a history of MDS and takes Jakafi under Dr. Ventura directions and apparently was doing well with this. Office evaluation revealed evidence of probable septic joint of the right fifth finger and he was admitted to the ER. He has been given a dose of vancomycin to this point. PAST MEDICAL HISTORY: Also takes amlodipine for hypertension. He has a history of CKD for which he was followed at . ALLERGIES: LISTED TO PENICILLIN. IMMUNIZATION STATUS: Unknown at this time. SOCIAL HISTORY: He is , nondrinker, nonsmoker, physically active for his age. REVIEW OF SYSTEMS: No other complaints. OBJECTIVE: ENT: All within normal limits. NECK: Revealed no masses, nodes or thyroid unremarkable. LUNGS: Clear. CARDIOVASCULAR: Regular rate. No irregular beat or murmur. ABDOMEN: Soft, benign and nontender. EXTREMITIES: The right hand shows evidence of swelling, redness and tenderness of the PIP joint of the right little finger with some extension distally. Capillary refill appears to be intact. Mobility is limited by pain and swelling. Otherwise, unremarkable. NEUROLOGIC ASSESSMENT: Probable septic joint, right hand fifth finger PIP. He is mildly immunosuppressed with medication he takes for myelodysplastic syndrome. Other possibilities would be gout, this looks to be more infectious in origin supported on the x-ray as well. PLAN: Queuvison pending blood cultures. Orthopedic evaluation as it will be finger amputation, older consultations obtained. MANDY DR: Petey TID: [id number]
[2021-09-13] MEDS ORDERED: HYDROcodone/APAP 5/325MG 1 TAB TABLET PO PRN (11:00)
--- NOTE | 2021-09-13 11:39 | NUR ---
SW following. Discussed with RN, pt from home, room air, NPO, COVID-19 negative, ad neetu. Pt had an I&D this morning. RN advised no SW needs at this time. SW will continue to follow.
[2021-09-13] MEDS: COLCHICINE 0.6 MG TABLET PO SCH (12:48)
[2021-09-14 07:00] VITALS: BP 116/62
[2021-09-14 07:14] LABS: BILIRUBIN,URINE NEGATIVE (NEG); CLARITY,URINE CLEAR; COLOR,URINE YELLOW; NITRITE,URINE NEGATIVE (NEG); PH,URINE 5.5 (<5.0-8.0); PROTEIN,URINE 30 mg/dL (NEG-TRACE); UROBILINOGEN,URINE 0.2 mg/dL (0.2 mg/dL)
[2021-09-14] MEDS ORDERED: VANCOMYCIN 1 GM in IV NORMAL SALINE 250ML 250 ML IV SCH (08:00)
[2021-09-14 08:02] LABS: BACTERIA,URINE 0 /HPF (0-FEW); RBC,URINE 0 /HPF (0-2); WBC,URINE 0 /HPF (0-4)
[2021-09-14] MEDS: COLCHICINE 0.6 MG TABLET PO SCH (08:20)
--- NOTE | 2021-09-14 08:40 | PDOC ---
Provider Note Date of Service: DATE: 09/14/21 TIME: 08:38 Provider Note no temp, joint fluid shows urate crystalas, and UA 12.6- he is on low dose allopurinol now per heme doc but ? dose- will add some prednisone to colchicine, resume low dose allopurinol, use dapto until sure cultures are neg re infection Justifications for Admission Other Justification FROY SALDAÑA MD Sep 14, 2021 08:40
[2021-09-14] MEDS: predniSONE 20 MG TABLET PO SCH (09:05)
[2021-09-14] MEDS: ALLOPURINOL 100 MG TABLET. PO SCH (09:06)
[2021-09-14] MEDS ORDERED: RUXO5TAB PO (09:43)
[2021-09-14] MEDS ORDERED: METO-239 PO (09:43)
[2021-09-14] MEDS ORDERED: EZET10TA20 PO (09:43)
[2021-09-14] MEDS ORDERED: ASPI81TA59 PO (09:43)
[2021-09-14] MEDS ORDERED: FURO40TA4 PO (09:43)
[2021-09-14] MEDS ORDERED: CLOP75TA PO (09:43)
[2021-09-14 11:00] VITALS: BP 129/65
[2021-09-14 15:00] VITALS: BP 121/60
[2021-09-14 19:58] VITALS: BP 107/58
[2021-09-14 23:40] VITALS: BP 118/62
[2021-09-15 02:54] VITALS: BP 110/64
[2021-09-15 07:00] VITALS: BP 123/66
--- NOTE | 2021-09-15 08:56 | PDOC ---
Provider Note Date of Service: DATE: 09/15/21 TIME: 08:55 Provider Note vss, no temp- wound looks god- await final cult, cont cubicin till neg, then dc on pred/colch/allopurinol new dose Justifications for Admission Other Justification FROY SALDAÑA MD Sep 15, 2021 08:56
[2021-09-15] MEDS: COLCHICINE 0.6 MG TABLET PO SCH (09:17)
[2021-09-15] MEDS: ALLOPURINOL 100 MG TABLET. PO SCH (09:18)
[2021-09-15] MEDS: predniSONE 20 MG TABLET PO SCH (09:19)
--- NOTE | 2021-09-15 10:44 | NUR ---
SW following. Discussed with RN, pt from home, room air, renal diet, COVID-19 negative. Pt has one dose of dapto left. Pt wanting to go home. RN reaching out to Dr. Miramontes to determine if pt can discharge home after IV abx today. SW will continue to follow.
[2021-09-15] MEDS: DAPTOmycin (GENERIC) IVPB 430 MG in IV NORMAL SALINE 50ML 50 ML IV SCH (14:41)
--- NOTE | 2021-09-15 16:35 | PDOC ---
PROGRESS NOTES Date of Service DATE: 09/15/21 TIME: 16:32 Subjective Subjective The finger is still sore. He is eager to go home. Objective Vital Signs Vital Signs Date Time Temp Pulse Resp B/P (MAP) Pulse Ox O2 Delivery O2 Flow Rate FiO2 09/15/21 08:00 Room Air 09/15/21 07:00 97.6 96 16 123/66 (85) 100 97.6 09/13/21 10:51 5 Physical Exam I changed the dressing. Suture line is intact. There is still some erythema, which would be consistent with gout. Light touch sensation is intact. Minimal serosanguineous drainage. Slight crystalline drainage is still present. Labs RUN DATE: 09/15/21 [facility] *LIVE* PAGE 1 RUN TIME: 1034 Specimen Inquiry PATIENT: HONG JUAREZDANIEL Pena ACCT: [id number] LOC: [address] [place] [address] U: [id number] AGE/SX: 80/M ROOM: [facility] RE09/12/[address]: FROY SALDAÑA MD : 1940 BED: 1 DIS: STATUS: ADM IN TLOC: SPEC #: [id number] CB: 09/13/21 STATUS: RES REQ #: [id number] RECD: 09/13/[address] [facility] [address]: FROY SALDAÑA MD SOURCE: TISSUE ENTR: 09/13/21-[address]: JANKI GORDON MD SPDESC: MASS ORDERED: ANAER/AEROB/GS COMMENTS: RIGHT LITTLE FINGER JOINT, TISSUE Procedure Result GRAM STAIN Final Final NO ORGANISMS SEEN. SQUAMOUS EPI CELL:NONE SEEN PMN (WBCs):NONE SEEN Unless otherwise specified, Testing Performed by: [address] [id number] For Inquires, the Physician may contact the Microbiology department at [phone] ANAEROBIC-AEROBIC CULTURE Preliminary Preliminary No Growth on 09/15/21 at 1030 Unless otherwise specified, Testing Performed by: [address] [id number] For Inquires, the Physician may contact the Microbiology department at [phone] END OF REPORT RUN DATE: 09/15/21 [facility] *LIVE* PAGE 1 RUN TIME: 1034 Specimen Inquiry -- PATIENT: CAROLINA JUAREZ ACCT: [id number] LOC: [address] [place] [address] U: [id number] AGE/SX: 80/M ROOM: [facility] 09/12/[address]: FROY SALDAÑA MD : 1940 BED: 1 DIS: STATUS: ADM IN TLOC: SPEC #: [id number] CB: 09/13/21-4 STATUS: RES REQ #: [id number] RECD: 09/13/21-[address]: FROY SALDAÑA MD SOURCE: TISSUE ENTR: 09/13/21-[address]: JANKI GORDON MD SPDESC: MASS ORDERED: ANAER/AEROB/GS COMMENTS: RIGHT LITTLE FINGER, SWAB FROM OR Procedure Result GRAM STAIN Final Final NO ORGANISMS SEEN. SQUAMOUS EPI CELL:NONE SEEN PMN (WBCs):NONE SEEN Unless otherwise specified, Testing Performed by: [address] [id number] For Inquires, the Physician may contact the Microbiology department at [phone] ANAEROBIC-AEROBIC CULTURE Preliminary Preliminary No Growth on 09/15/21 at 1029 Unless otherwise specified, Testing Performed by: [address] [address] For Inquires, the Physician may contact the Microbiology department at [phone] END OF REPORT Laboratory Tests Test 09/14/21 04:00 09/14/21 06:30 Creatine Kinase 33 U/L (39-308) Urine Collection Type Unknown Urine Color Yellow Urine Clarity Clear Urine pH 5.5 (<5.0-8.0) Urine Specific [place] 1.020 (1.000-1.030) Urine Protein 30 mg/dL (NEG-TRACE) Urine Glucose (UA) Negative mg/dL (NEG) Urine Ketones (Stick) Negative mg/dL (NEG) Urine Blood Negative (NEG) Urine Nitrite Negative (NEG) Urine Bilirubin Negative (NEG) Urine Urobilinogen Dipstick 0.2 mg/dL (0.2 mg/dL) Urine Leukocyte Esterase Negative (NEG) Urine RBC 0 /HPF (0-2) Urine WBC 0 /HPF (0-4) Urine Squamous Epithelial Cells Occ /LPF Urine Bacteria 0 /HPF (0-FEW) Urine Mucus Slight /LPF Assessment Assessment POD# 2 after I&D right little finger PIP joint Plan Plan of Care Cultures remain negative. Medical treatment for gout. If cultures stay negative he could go home without antibiotics. Office follow-up for suture removal. Justicifation of Admission Dx: Justifications for Admission: Justification of Admission Dx: N/A JANKI GORDON MD Sep 15, 2021 16:35
[2021-09-15 19:00] VITALS: BP 105/62
[2021-09-15 22:53] VITALS: BP 98/59
[2021-09-16 07:00] VITALS: BP 110/65
[2021-09-16] MEDS: ALLOPURINOL 100 MG TABLET. PO SCH (09:32)
[2021-09-16] MEDS: COLCHICINE 0.6 MG TABLET PO SCH (09:32)
[2021-09-16] MEDS: predniSONE 20 MG TABLET PO SCH (09:32)
--- NOTE | 2021-09-16 10:02 | PDOC ---
Provider Note Date of Service: DATE: 09/16/21 TIME: 10:00 Provider Note [id number] Justifications for Admission Other Justification FROY SALDAÑA MD Sep 16, 2021 10:02
--- NOTE | 2021-09-16 11:00 | NUR ---
DISCHARGE INSTRUCTIONS GIVEN, QUESTIONS AND CONCERNS ANSWERED, PATIENT AND SON AT THE BEDSIDE VERBALIZED UNDERSTANDING OF DISCHARGE INFORMATION INCLUDING TAKING ALL MEDICATIONS INSTRUCTED AND FOLLOWING UP WITH HIS PRIMARY PROVIDER AND DR. GORDON INSTRUCTED TI HAVE SUTURES REMOVED, ALL PERSONAL BELONGINGS GATHERED BY THE PATIENT AND PLACED IN BAGS FOR DISCHARGE. SALINE LOCK REMOVED FROM LEFT FA PER CERTIFIED PHARMACIST ASSISTANT, BANDAGE APPLIED.
--- NOTE | 2021-09-16 11:23 | NUR ---
PATIENT LEAVES THE UNT PER W/C AND ACCOMPANIED BY THIS FURNITURE FINISHER AND HIS SON, EMOTIONAL SUPPORT GIVEN, FOLLOW UP APPOINTMENTS ENCOURAGED.
--- NOTE | 2021-09-16 12:08 | DS ---
DATE OF DISCHARGE: 09/16/2021 HOSPITAL SUMMARY: An 80 year old came in with active synovitis of the right fifth finger PIP joint. It was suspicious initially for septic joint, but as he gives a history of gout that was also considered. Dr. Collazo took him to surgery. Incision and drainage revealed uric acid crystals on the Gram stain, but no organisms and cultures are negative to this point. Chemistry studies showed a creatinine of 2.4, GFR of 26, and uric acid of 12.6 despite allopurinol therapy he is taking from the oncologist. COVID serology was negative. Urinalysis was clear. White count was elevated at 16,000, hemoglobin 8.3, platelets normal, but he has a known myelodysplastic syndrome. He was given daptomycin while in the hospital until the culture was negative and also prednisone, colchicine and allopurinol were started. The wound is looking better. He is afebrile and he has culture and no growth. We will stop the antibiotics and treat it as an acute gout and follow as an outpatient at this point. FINAL DIAGNOSES: 1. Acute gout of the right fifth finger proximal interphalangeal joint. 2. 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 3. Myelodysplastic syndrome, stable. OPERATIONS AND PROCEDURES: Incision and drainage of the finger. COMPLICATIONS: None. CONSULTATION: Dr. Collazo. DISPOSITION: We will increase his allopurinol dose from 50 mg twice a week to 50 mg daily along with colchicine 0.6 mg every other day while on allopurinol titration. He will take 4 more days of prednisone due to loss of joint. Wound care per Dr. Collazo as to suture removal. Will see him in the office in 7-10 days to follow up his uric acid and renal function. Etiology of the reduced renal function is not known at this time, we will evaluate that further as well in the office. CARL/NEETA DR: ALICIA/barry TID: [id number]
== END 2021-09-16 11:23 | disposition home or self-care (01) | DRG 513 ==
LOC: ER 12:15 → ED HOLD 19:44 → 5 NORTH 21:03
PROVIDERS: ADMIT Family Medicine; ATTEND Family Medicine
PROC: 0RBW0ZZ Excision of Right Finger Phalangeal Joint, Open Approach (ICD-10-PCS; principal; 2021-09-13 09:30)
DX: M10.041 Idiopathic gout, right hand (principal); M86.8X4 Other osteomyelitis, hand; D84.821 Immunodeficiency due to drugs; M02.84 Other reactive arthropathies, hand; N18.4 Chronic kidney disease, stage 4 (severe); M65.841 Other synovitis and tenosynovitis, right hand; B99.9 Unspecified infectious disease; M06.4 Inflammatory polyarthropathy; Z20.822 Contact with and (suspected) exposure to COVID-19; Z96.1 Presence of intraocular lens; I12.9 Hypertensive chronic kidney disease with stage 1 through stage 4 chronic kidney disease, or unspecified chronic kidney disease; D46.9 Myelodysplastic syndrome, unspecified; Z85.828 Personal history of other malignant neoplasm of skin; Z88.0 Allergy status to penicillin; Z79.899 Other long term (current) drug therapy; Z89.022 Acquired absence of left finger(s); Z98.49 Cataract extraction status, unspecified eye
CPT/HCPCS: 36415; 73140; 80053; 81001; 82550; 83605; 84550; 85007; 85025; 85651; 86140; 87040; 87071; 87075; 87205; 87426; 90471; 90715; 96361; 96374; A4209; A4930; A6402; J0696; J0878; J1100; J2405; J2704; J3010; J3370; J3490; J7030; J7040; J7120; J7512; U0003; U0005; 99285-25; G0378

== ENCOUNTER → 2021-10-30 | Outpatient (CLI) | payer MEDICARE, BC ==
[~2021-10-30] MED LIST changes: +ASPI81TA59 PO; +CLOP75TA PO; +EZET10TA20 PO; +FURO40TA4 PO; +METO-239 PO; +RUXO5TAB PO
[2021-10-30 12:55] LABS: BASO # 0.5 x10^3/uL (0.0-0.2); BASO % 3 % (0-3); EOS # 0.3 x10^3/uL (0.0-0.7); EOS % 2 % (0-3); HEMATOCRIT 26.3 % (39.0-53.0); HEMOGLOBIN 8.5 g/dL (13.0-17.5); LYMPH # 2.6 x10^3/uL (1.0-4.8); LYMPH % 16 % (24-48); MEAN CORPUSCULAR HEMOGLOBIN 30 pg (25-35); MEAN CORPUSCULAR HGB CONC 32 g/dL (31-37); MEAN CORPUSCULAR VOLUME 92 fL (79-100); MONO # 0.5 x10^3/uL (0.0-1.1); MONO % 3 % (0-9); NEUT % 76 % (31-73); PLATELET COUNT 261 x10^3/uL (140-400); RED BLOOD COUNT 2.86 x10^6/uL (4.30-5.70); RED CELL DISTRIBUTION WIDTH 19.8 % (11.5-14.5); WHITE BLOOD COUNT 15.8 x10^3/uL (4.0-11.0)
[2021-10-30 13:20] LABS: % BANDS 28 % (0-9); % BASOS 4 % (0-3); % EOS 2 % (0-5); % LYMPHS 13 % (24-48); % METAS 9 % (0-0); % MONOS 3 % (0-10); % MYELOS 3 % (0-0); % SEGS 38 % (35-66); ANISOCYTOSIS SLIGHT; NUCLEATED RBC 6; PLT ESTIMATE ADEQUATE (ADEQUATE); POLYCHROMASIA PRESENT
[2021-10-30 13:21] LABS: TEAR DROP CELLS OCC
[2021-10-30 13:34] LABS: CREATININE 3.3 mg/dL (0.7-1.3); POTASSIUM 5.7 mmol/L (3.5-5.1)
[2021-10-30 13:40] LABS: ALBUMIN 4.3 g/dL (3.4-5.0); ALBUMIN/GLOBULIN RATIO 1.4 (1.0-1.7); TOTAL BILIRUBIN 0.9 mg/dL (0.2-1.0); TOTAL PROTEIN 7.3 g/dL (6.4-8.2); URIC ACID 8.1 mg/dL (3.5-7.2)
== END ==
LOC: ONCLAB 12:31
PROVIDERS: ATTEND Internal Medicine Hematology & Oncology
DX: D75.81 Myelofibrosis (principal)
CPT/HCPCS: 36415; 80053; 83615; 84550; 85007; 85025